=== PATIENT | female | born 1940 | race Caucasian/White ===

== ENCOUNTER 2016-05-22 10:12 | Inpatient (IN) ==
--- NOTE | 2016-05-22 11:04 | Emergency Department Note ---
Disposition Clinical Impression: Non-STEMI (non-ST elevated myocardial infarction) Disposition: Admitted As Inpatient Condition: Good Chest Pain HPI - General Chief Complaint: ED Chest Pain Stated Complaint: reflux esophagitis, JONA Time Seen by Provider: 05/22/16 10:50 Source: patient Mode of arrival: private vehicle Limitations: no limitations Vital Signs Reviewed: Yes Nursing Notes Reviewed: Yes - History of Present Illness HPI Narrative: 75-year-old female presents to the ER with a chief complaint of chest pain. Patient reports that she was seen last by her primary care provider for these symptoms and was started on Prilosec for heartburn. She reports that she is having multiple episodes of chest pain at home. It starts over her epigastric area and radiates up into her chest up into her neck and at times in her left arm. She reports that it happens at rest. There are no exacerbating factors. She reports that this happened a few years ago and she had a syncopal episode. Patient reports she had a stress test and Holter monitor which were okay. No recurrence of symptoms until now. She reports the Prilosec was not helping with her symptoms. She reports some shortness of breath whenever she has these episodes. She does have a history of anxiety and has been taking her Ativan as prescribed. No recent stressors that she can account for. No other complaints. Pt complaint: chest pain Onset (ago): day(s) Duration: intermittent Onset: during rest Pain Location: substernal Severity: moderate Severity scale (1-10): 6 Quality: heaviness Pain Radiation: LUE, neck, jaw/teeth Improves with: nothing Worsens with: nothing Associated symptoms: Reports: dyspnea. Denies: nausea, vomiting, diaphoresis Treatments prior to arrival chest pain: none - Related Data On Oral Contraceptives: No Home Medications Medication Instructions Recorded Confirmed LORazepam [Ativan] 0.5 mg PO TID PRN 05/22/16 05/22/16 Allergies Allergy/AdvReac Type Severity Reaction Status Date / Time Hydromorphone [From Dilaudid] Allergy See Verified 01/12/15 10:01 Comments morphine Allergy See Verified 01/12/15 10:01 Comments Penicillins Allergy See Verified 01/12/15 10:01 Comments All systems ED: reviewed and negative except as stated. Constitutional: Denies: fever Cardiovascular: Reports: chest pain Respiratory: Reports: dyspnea. Denies: cough, wheezes Gastrointestinal: Denies: abdominal pain, nausea, vomiting, diarrhea Musculoskeletal: Reports: neck pain. Denies: back pain Chest Pain PMH - Past Medical History Medical history: Reports: GERD Surgical history: Reports: appendectomy, colectomy, hysterectomy Psychiatric history: Reports: anxiety - Social History Smoking Status: Current every day smoker Alcohol use: Reports: none Drug use: Reports: none Physical Exam - General Limitations: no limitations General appearance: alert, in no apparent distress - Head Head exam: atraumatic, normocephalic - Eye Eye exam: Present: normal appearance, EOMI - ENT ENT exam: normal exam - Neck Neck exam: Present: normal inspection, full ROM - Chest Chest inspection: Present: normal inspection, symmetric chest wall rise - Respiratory Respiratory exam: Present: normal lung sounds bilaterally - Cardiovascular Cardiovascular exam: Present: regular rate, normal rhythm, normal heart sounds - Abdominal Exam Abdominal exam: Present: soft, Non-Tender. Absent: tenderness - Extremities Exam Extremities exam: Present: normal inspection, full ROM - Expanded Upper Extremity Exam Shoulder exam: Present: normal inspection, full ROM Arm exam: Present: normal inspection, full ROM Elbow exam: Present: normal inspection, full ROM Forearm/Wrist exam: Present: normal inspection, full ROM Hand exam: Present: normal inspection, full ROM Vascular exam: Normal: radial pulse - Expanded Lower Extremity Exam Hip/Pelvis exam: Present: normal inspection, full ROM Upper leg exam: Present: normal inspection, full ROM Knee exam: Present: normal inspection, full ROM Lower leg exam: Present: normal inspection, full ROM Ankle exam: Present: normal inspection, full ROM Foot/toe exam: Present: normal inspection, full ROM Neurovascular/Tendon exam: Absent: motor deficit, sensory deficit - Neurological Exam Neurological exam: Present: alert - Psychiatric Psychiatric exam: Present: normal affect, normal mood - Skin Skin exam: Present: warm, dry, intact, normal color Course Course Narrative: Patient seen and examined. Vital signs reviewed. We will get an EKG, labs including troponin. Disposition pending. - Reevaluation(s) Reevaluation #1: Discussed results of labs and imaging with the patient. Her troponin did come back at 0.2. Case was discussed with cardiology who agrees with beginning a heparin drip and admitting for serial troponins and evaluation. Patient and family agreeable with this plan after discussion. - Consultations Consultation #1: I spoke with the on-call hotel or motel receptionist Dr. Flores. Discussed patient's history and EKG labs and interventions to date. He agrees to continue the heparin drip and admitted for serial troponins and evaluation. Vital Signs Temperature 97.6 F 05/22/16 10:15 Pulse Rate 93 05/22/16 10:15 Respiratory Rate 16 05/22/16 10:15 Blood Pressure 146/76 05/22/16 10:15 O2 Sat by Pulse Oximetry 99 05/22/16 10:15 Temperature 97.6 F 05/22/16 10:15 Pulse Rate 90 05/22/16 12:24 Respiratory Rate 18 05/22/16 13:51 Blood Pressure 155/66 05/22/16 13:51 O2 Sat by Pulse Oximetry 100 05/22/16 12:24 Oxygen Delivery Oxygen Delivery Room Air Chest Pain - MDM Narrative Medical decision making narrative: 75-year-old female presents to the ER with a chief complaint of chest pain. Has been going on for 1 week and sounds like she has been treated for GERD previously. Her EKG here is sinus rhythm. Her troponin did come back at 0.22. Cardiology was consulted in the emergency department who agreed with starting a heparin drip and admitting to the hospitalist service. - Lab Data Lab results reviewed: Yes I reviewed the patient's lab results. Result diagrams: 05/22/16 11:23 05/22/16 11:23 Lab Results 05/22/16 05/22/16 05/22/16 Range/Units 11:23 11:23 11:23 WBC 6.3 (4.3-11.1) K/mcL RBC 3.77 L (3.82-4.97) M/mcL Hgb 11.4 L D (11.5-15.4) g/dL Hct 35.0 L (35.3-44.9) % MCV 92.8 (83.0-100.0) fL MCH 30.2 (28.0-33.3) pg MCHC 32.6 (31.6-35.5) g/dL RDW 12.7 (11.5-14.5) % Plt Count 210 (140-400) K/mcL MPV 10.8 (9.4-12.4) fL Immature Gran % 0.2 (0-4) % Seg Neutrophils % 56.2 % Lymphocytes % 24.5 % Monocytes % 18.3 % Eosinophils % 0.3 % Basophils % 0.5 % Neutrophils # 3.5 (1.6-8.9) K/mcL Lymphocytes # 1.5 (0.6-4.6) K/mcL Monocytes # 1.2 (0.0-1.3) K/mcL Eosinophils # 0.0 (0.0-0.6) K/mcL Basophils # 0.0 (0.0-0.2) K/mcL Platelet Estimate Normal (Normal) Immature Plt Fraction 7.6 H (1.1-6.1) % APTT (26.0-36.0) Seconds Sodium 141 (136-145) mEq/L Potassium 3.6 (3.5-4.5) mEq/L Chloride 110 H (98-109) mEq/L Carbon Dioxide 23 (19-29) mEq/L BUN 15 (7-20) mg/dL Creatinine 0.66 (0.57-1.11) mg/dL Est GFR ( Amer) > 60 (> 60) Est GFR (Non-Af Amer) > 60 (> 60) BUN/Creatinine Ratio 23 (6-26) Glucose 96 (70-99) mg/dL Calculated Osmolality 293 (280-300) Calcium 9.0 (8.6-10.8) mg/dL Troponin I 0.22 H* (0-0.03) ng/mL 05/22/16 Range/Units 11:23 WBC (4.3-11.1) K/mcL RBC (3.82-4.97) M/mcL Hgb (11.5-15.4) g/dL Hct (35.3-44.9) % MCV (83.0-100.0) fL MCH (28.0-33.3) pg MCHC (31.6-35.5) g/dL RDW (11.5-14.5) % Plt Count (140-400) K/mcL MPV (9.4-12.4) fL Immature Gran % (0-4) % Seg Neutrophils % % Lymphocytes % % Monocytes % % Eosinophils % % Basophils % % Neutrophils # (1.6-8.9) K/mcL Lymphocytes # (0.6-4.6) K/mcL Monocytes # (0.0-1.3) K/mcL Eosinophils # (0.0-0.6) K/mcL Basophils # (0.0-0.2) K/mcL Platelet Estimate (Normal) Immature Plt Fraction (1.1-6.1) % APTT 29.6 (26.0-36.0) Seconds Sodium (136-145) mEq/L Potassium (3.5-4.5) mEq/L Chloride (98-109) mEq/L Carbon Dioxide (19-29) mEq/L BUN (7-20) mg/dL Creatinine (0.57-1.11) mg/dL Est GFR ( Amer) (> 60) Est GFR (Non-Af Amer) (> 60) BUN/Creatinine Ratio (6-26) Glucose (70-99) mg/dL Calculated Osmolality (280-300) Calcium (8.6-10.8) mg/dL Troponin I (0-0.03) ng/mL - Radiology Data Radiology results reviewed: Yes I reviewed the patient's radiology results. Chest X-Ray 05/22/16 11:15 IMPRESSION: Overall stable appearing chest without acute cardiopulmonary process identified. D/ / Angelo Santana MD / Angelo Santana MD Interpreting Provider: Angelo Santana MD - EKG Data EKG attestation: Yes I reviewed and interpreted this EKG. EKG results narrative: EKG demonstrates normal sinus rhythm with rate of 96 bpm. Left axis deviation. GA interval 151 QRS duration 96 QTC 411 T wave inversions in lead 3. No ST elevations or depressions. Heart Score - Score History: Moderately Suspicious EKG: Non Specific repolarisation Disturbance Age: Greater than 65 Risk Factors: No risk factors known Troponin: Greater than 3x normal limit HEART Score Total: 6 Attestation Statement - Attestation Attestation: I examined this patient and my medical decision-making was reviewed with the Resident Physician. I agree with the documented findings, disposition and treatment plan as described except to the extent set forth below. CP concerning for ischemia, no STEMI on EKG, troponin 0.22 - dx NSTEMI. No sx of GIB or other abnormal bleeding, pt anticoagulated and admitted. Aspirin ordered. Cardiology aware, recommendations given.
[2016-05-22 11:30] LABS: Basophils % 0.5 %; Eosinophils % 0.3 %; Hemoglobin 11.4 g/dL (11.5-15.4); Immature Granulocytes % 0.2 % (0-4); Immature Platelets 7.6 % (1.1-6.1); Lymphocytes % 24.5 %; Mean Corpuscular HGB Conc 32.6 g/dL (31.6-35.5); Mean Corpuscular Hemoglobin 30.2 pg (28.0-33.3); Mean Corpuscular Volume 92.8 fL (83.0-100.0); Mean Platelet Volume 10.8 fL (9.4-12.4); Monocytes # 1.2 K/mcL (0.0-1.3); Monocytes % 18.3 %; Platelet Count 210 K/mcL (140-400); Red Blood Count 3.77 M/mcL (3.82-4.97); Red Cell Distribution Width 12.7 % (11.5-14.5); Segmented Neutrophils % 56.2 %
[2016-05-22 11:32] LABS: Lymphocytes # 1.5 K/mcL (0.6-4.6); Neutrophils # 3.5 K/mcL (1.6-8.9)
[2016-05-22 11:41] LABS: BUN/Creatinine Ratio 23 (6-26); Blood Urea Nitrogen 15 mg/dL (7-20); Carbon Dioxide 23 mEq/L (19-29); Chloride 110 mEq/L (98-109); Glucose 96 mg/dL (70-99); Osmolality,Calculated 293 (280-300); Potassium 3.6 mEq/L (3.5-4.5); Sodium 141 mEq/L (136-145); eGFR For African Americans > 60 (> 60); eGFR For Non-African Americans > 60 (> 60)
[2016-05-22 11:57] LABS: Platelet Estimate Normal (Normal)
[2016-05-22] MEDS ORDERED: *HR* Heparin 5,000 UNIT/ML VIAL IVP ONE (12:39)
[2016-05-22] MEDS ORDERED: *HR* Heparin 5,000 UNIT/ML VIAL IVP PRN ×2 (12:39)
[2016-05-22] MEDS ORDERED: Heparin 25,000 UNIT/500 ML D5W 25,000 UNIT/500 ML MLS IVC SCH (12:45)
[2016-05-22] MEDS ORDERED: Aspirin 81 MG TAB.CHEW PO STA (12:51)
[2016-05-22] MEDS ORDERED: *HR* LORazepam 0.5 MG TABLET PO ONE (13:36)
[2016-05-22] MEDS ORDERED: *HR* Morphine 2 MG/ML SYRINGE IVP PRN (14:13)
[2016-05-22] MEDS ORDERED: Naloxone 0.4 MG/ML INJ IVP PRN (14:13)
--- NOTE | 2016-05-22 14:38 | Internal Med History&Physical ---
<Marilia Marley M - Last Filed: 05/22/16 15:25> Date of Encounter: 05/22/16 Time of Encounter: 14:34 Assessment and Plan (1) Non-STEMI (non-ST elevated myocardial infarction) Current visit: Yes Status: Acute Patient with intermittent chest tightness and heaviness radiating up to her neck. EKG showed NSR without ST elevations or depressions. Troponin elevated to 0.22. Cardiology consulted Low-dose heparin drip check PT/INR/PTT Q6hrs and adjust heparin dose per protocol continuous manager cardiac cath serial troponins echocardiogram in the morning NPO after midnight for probably cardiac cath tomorrow. (2) Anxiety Current visit: Yes Status: Acute Continue home dose of ativan. (3) Smoker Current visit: Yes Status: Acute Patient reports she smokes 4-5 cigarettes per day. Discussed smoking cessation , and the consequences of smoking. Patient considering quitting. Offered nicotine patch and patient refused. (4) DVT prophylaxis Current visit: Yes Status: Acute Ambulate with assistance anti-embolic stockings Patient on heparin drip for ACS, additional pharmacologic prophylaxis is not indicated. Internal Medicine - H&P: HPI Chief complaint: chest pain Admitted From: Emergency Dept Plans for Post Hospital Care: Home History of present illness: Ms. Mccullough is a 75 year old female with anxiety, presented to the emergency department today with complaints of chest tightness and shortness of breath. She reports that over the last week she has experienced chest tightness and heaviness that radiated up from her epigastric area through her mid chest and up to her neck accompanied by shortness of breath. She reports these episodes come and go and last approximately 3 minutes. Some episodes include palpitations, and she had a few episodes that included nausea. She did have 2 or 3 episodes that also had left arm pain. She reports the chest tightness and heaviness goes away on its own without intervention. She went to her PCPs office last week and was started on Prilosec for suspected GERD, but she reports that her symptoms worsened since starting the Prilosec. Also reports a tremor that is also worsened since starting the Prilosec. The tremor is constant. She reports occasional headaches and lightheadedness. She denies any cough, fevers, chills, vomiting, abdominal pain, diarrhea. Evaluation in the emergency department including EKG which showed normal sinus rhythm with no ST elevations or depressions. Chest x-ray which was stable without acute cardiopulmonary process. Her troponin was elevated to 0.22. Vitals were stable with heart rate in the 90s, blood pressure 140s to 150s over 80s. Cardiology was consulted and she was started on a heparin drip. On exam, patient is alert and oriented, in no acute distress. Lungs are clear bilaterally to auscultation, heart has regular rate and rhythm. Past Med Surg Social Fam HX - Past Medical History Medical history: GERD Psychiatric history: anxiety - Past Surgical History Surgical History: appendectomy, hysterectomy - Social History Smoking Status: Current every day smoker (4-5 cigs/day x 37 years) Smokeless Tobacco Status: No Alcohol use: none Drug use: none - Family History Mother Living Status: Age at : 89 Cause of : CVA Hx Family Cancer: Yes Father Living Status: Age at : 47 Cause of : [place] Hx Family Cardiac Disorders: Yes Brother Living Status: Age at : 70 Cause of : [place] Hx Family Cardiac Disorders: Yes Internal Medicine - H&P: Meds LORazepam [Ativan] 0.5 mg PO TID PRN 05/22/16 [History] Allergies Hydromorphone [From Dilaudid] Allergy (Verified 01/12/15 10:01) See Comments morphine Allergy (Verified 01/12/15 10:01) See Comments Penicillins Allergy (Verified 01/12/15 10:01) See Comments All Systems PM: A 10-system review of systems was performed and is negative for pertinent findings except as documented above in the HPI. - Constitutional Constitutional: anorexia, no chills, no fever(s), no night sweats - EENT Eyes: no change in vision, no discharge, no pain, no photophobia Ears: no ear discharge, no ear pain, no tinnitus Nose, mouth and throat: no dysphagia, no nasal discharge, no neck pain, no sore throat - Cardiovascular Cardiovascular ROS IM: chest pain, dyspnea, lightheadedness, palpitations, no diaphoresis, no syncope - Respiratory Respiratory: dyspnea, no cough, no wheezing, no excessive phlegm production - Gastrointestinal Gastrointestinal: nausea, no abdominal pain, no diarrhea, no hematemesis, no hematochezia, no melena, no vomiting - Genitourinary Genitourinary: no change in urinary stream, no dysuria, no flank pain, no hematuria - Musculoskeletal Musculoskeletal ROS IM: no numbness, no tingling - Integumentary Integumentary IM: no rash, no unusual bruising - Neurological Neurological ROS: tremor(s), no confusion, no convulsions, no focal weakness, no numbness, no tingling - Hematologic/Lymphatic Hematologic/Lymphatic: no easy bruising - Constitutional Vitals: Temp Pulse Resp BP Pulse Ox 97.6 F 90 18 155/66 100 05/22/16 10:15 05/22/16 12:24 05/22/16 13:51 05/22/16 13:51 05/22/16 12:24 General appearance: Present: A&O X 3, pleasant, no acute distress - Head Head exam: Present: atraumatic, normocephalic - Eye Eye exam: Present: PERRL, conjuntiva pink, sclera anicteric Pupils: Present: PERRL - Neck Neck exam general surgery: Present: supple, trachea midline. Absent: lymphadenopathy - Respiratory Respiratory exam: Present: CTAB. Absent: accessory muscle use, rales, rhonchi, wheezes - Cardiovascular Cardiovascular exam: Present: RRR, +S1, +S2. Absent: diastolic murmur, gallop, rubs, systolic murmur - GI/Abdominal GI/Abdominal exam: Present: normal bowel sounds, soft, no peritoneal signs. Absent: distended, tenderness - Extremities Exam Extremities exam: Present: warm, radial pulses palpable and symetrical. Absent : calf tenderness, cyanotic, pedal edema - Neurological Exam Neurological exam: Present: CN II-XII intact, oriented X3, no focal deficits. Absent: facial droop, speech deficit - Skin Skin exam: Present: dry, intact Internal Med - H&P Results - Labs CBC & Chem 7: 05/22/16 11:23 05/22/16 11:23 Labs: All Lab Results (24 Hours) 05/22/16 05/22/16 05/22/16 Range/Units 11:23 11:23 11:23 WBC 6.3 (4.3-11.1) K/mcL RBC 3.77 L (3.82-4.97) M/mcL Hgb 11.4 L D (11.5-15.4) g/dL Hct 35.0 L (35.3-44.9) % MCV 92.8 (83.0-100.0) fL MCH 30.2 (28.0-33.3) pg MCHC 32.6 (31.6-35.5) g/dL RDW 12.7 (11.5-14.5) % Plt Count 210 (140-400) K/mcL MPV 10.8 (9.4-12.4) fL Immature Gran % 0.2 (0-4) % Seg Neutrophils % 56.2 % Lymphocytes % 24.5 % Monocytes % 18.3 % Eosinophils % 0.3 % Basophils % 0.5 % Neutrophils # 3.5 (1.6-8.9) K/mcL Lymphocytes # 1.5 (0.6-4.6) K/mcL Monocytes # 1.2 (0.0-1.3) K/mcL Eosinophils # 0.0 (0.0-0.6) K/mcL Basophils # 0.0 (0.0-0.2) K/mcL Platelet Estimate Normal (Normal) Immature Plt Fraction 7.6 H (1.1-6.1) % APTT (26.0-36.0) Seconds Sodium 141 (136-145) mEq/L Potassium 3.6 (3.5-4.5) mEq/L Chloride 110 H (98-109) mEq/L Carbon Dioxide 23 (19-29) mEq/L BUN 15 (7-20) mg/dL Creatinine 0.66 (0.57-1.11) mg/dL Est GFR ( Amer) > 60 (> 60) Est GFR (Non-Af Amer) > 60 (> 60) BUN/Creatinine Ratio 23 (6-26) Glucose 96 (70-99) mg/dL Calculated Osmolality 293 (280-300) Calcium 9.0 (8.6-10.8) mg/dL Troponin I 0.22 H* (0-0.03) ng/mL 05/22/16 Range/Units 11:23 WBC (4.3-11.1) K/mcL RBC (3.82-4.97) M/mcL Hgb (11.5-15.4) g/dL Hct (35.3-44.9) % MCV (83.0-100.0) fL MCH (28.0-33.3) pg MCHC (31.6-35.5) g/dL RDW (11.5-14.5) % Plt Count (140-400) K/mcL MPV (9.4-12.4) fL Immature Gran % (0-4) % Seg Neutrophils % % Lymphocytes % % Monocytes % % Eosinophils % % Basophils % % Neutrophils # (1.6-8.9) K/mcL Lymphocytes # (0.6-4.6) K/mcL Monocytes # (0.0-1.3) K/mcL Eosinophils # (0.0-0.6) K/mcL Basophils # (0.0-0.2) K/mcL Platelet Estimate (Normal) Immature Plt Fraction (1.1-6.1) % APTT 29.6 (26.0-36.0) Seconds Sodium (136-145) mEq/L Potassium (3.5-4.5) mEq/L Chloride (98-109) mEq/L Carbon Dioxide (19-29) mEq/L BUN (7-20) mg/dL Creatinine (0.57-1.11) mg/dL Est GFR ( Amer) (> 60) Est GFR (Non-Af Amer) (> 60) BUN/Creatinine Ratio (6-26) Glucose (70-99) mg/dL Calculated Osmolality (280-300) Calcium (8.6-10.8) mg/dL Troponin I (0-0.03) ng/mL - Diagnostic Studies Chest x-ray Additional comments: Chest X-Ray 05/22/16 11:15 IMPRESSION: Overall stable appearing chest without acute cardiopulmonary process identified. D/ / Angelo Santana MD / Angelo Santana MD Interpreting Provider: Angelo Santana MD <Olayinka Jaramillo T - Last Filed: 05/22/16 17:33> Date of Encounter: 05/22/16 Internal Medicine - H&P: HPI History of present illness: Ms. Mccullough is a 75 year old female All Systems PM: A 10-system review of systems was performed and is negative for pertinent findings except as documented above in the HPI. - Constitutional Vitals: Temp Pulse Resp BP Pulse Ox 97.8 F 97 17 141/60 94 05/22/16 15:26 05/22/16 15:26 05/22/16 15:26 05/22/16 15:26 05/22/16 15:26 Internal Med - H&P Results - Labs CBC & Chem 7: 05/22/16 11:23 05/22/16 11:23 - Attending Attestation I have independently interviewed and examined this patient. I agree with the resident/practitioner's documentation, with exemptions as stated below. The plan of care has been discussed with the team, patient and family members. 73 Y/O F with History of tobacco abuse, GERD, and anxiety presenting complaints significant for typical cardiac chest pain. Physical examination is unremarkable; vital signs stable, chest pain is not reproducible. Chest is clear, HS S1, S2 only, abdomen is benign, no pedal edema Labs and imaging reviewed chest x-ray was unremarkable as elevated troponins at 0.22, EKG with t-wave inversion in v3, incomplete right bundle branch block. CBC with mild normocytic anemia Assessment and plan NSTEMI, Continue ACS protocol, check A1C and lipid panel, obtain echocardiogram, consult cardiology, tobacco cessation counseling . Rest of details as in [employer] Yasmin documentation above, which I agree with.
[2016-05-22] MEDS ORDERED: Nitroglycerin 0.4 MG TAB.SUBL SL PRN (14:51)
--- NOTE | 2016-05-22 15:04 | Cardiology Consult Note ---
Date of Encounter: 05/22/16 Time of Encounter: 15:01 Assessment and Plan (1) Non-STEMI (non-ST elevated myocardial infarction) Current Visit: Yes Status: Acute patient came in with substernal chest pressure/tightness that radiates to her neck and jawline bilaterally. She states that it occurs both with activity and at rest, and relieved by rest. EKG showed some t wave inversions, which are also noted on previous EKG. SUDHIR score: 4 Troponin .22 CXR showed no acute process. patient had echocardiogram done in 06/20/2011 for syncope. It showed normal LV function, mild RA and LA enlargement, mildly calcified aortic valve. All segments of LV showed normal motion. she had stress test in 2010 that was negative. Plan: NPO after midnight for possible LHC tomorrow. Discussed risks, benefits of LHC with patient. EV echo pending Continue to cycle troponin will check liver function tomorrow, if normal, will start statin tomorrow. ASA 81 mg dailly, Metoprolol 25mg BID (2) Smoker Current Visit: Yes Status: Acute patient states that she smokes about 3 cigarettes per day for the past 37 years. patient counseled extensively on the benefits of smoking cessation, and its associated risk with heart disease. Discussion w patient/family: The assessment and plan as outlined above was discussed with the patient and/or family members who expressed understanding and agreement. All questions were answered. Thank you for involving us in the care of your patient. Please call with any questions. History of Present Illness Consult date: 05/22/16 Requesting physician: Marilia Marley Consult reason: NSTEMI Chief complaint: chest pressure History of present illness: Ms. Mccullough is a 75 year old female with no significant cardiac history. She has a past medical history of anxiety, allergic rhinitis, osteopenia, GERD. She states the only medications she takes at home is Lorazepam for anxiety and prilosec. Patient states she has been having a chest pressure/tightness that started about 1.5 weeks ago. Because of this, she went to see her PCP, who stated that it was probably due to GERD and put her on prilosec daily. She states that she had been taking the prilosec regularly, but it was not helping with her symptoms. Her chest pressure starts in the middle of her chest and radiates up he neck to her chin and jaw lines bilaterally. Her chest pressure does not change with laying down or sitting up. She states however that it is associated with activity, but sometimes occurs at rest as well. She states that her chest tightness/pressure has woken her up from sleep a total of 3 times since her symptoms started 1.5 weeks ago. When these episodes happen, she has mild shortness of breath and is diaphoretic. Upon examination, she was chest pain free. she denies having nausea, vomiting, diarrhea, fever, chills. Past Med Surg Social Fam HX - Past Medical History Medical history: GERD Psychiatric history: anxiety - Past Surgical History Surgical History: appendectomy, hysterectomy - Social History Smoking Status: Current every day smoker (4-5 cigs/day x 37 years) Packs per day: <1 Smokeless Tobacco Status: No Alcohol use: none Drug use: none - Family History Father Family Member Ethnicity: Non- Living Status: Hx Family Cardiac Disorders: Yes Mother Living Status: Age at : 89 Cause of : CVA Hx Family Cancer: Yes Brother Living Status: Age at : 70 Cause of : PR Hx Family Cardiac Disorders: Yes Medications and Allergies LORazepam [Ativan] 0.5 mg PO TID PRN 05/22/16 [History] Allergies Hydromorphone [From Dilaudid] Allergy (Verified 01/12/15 10:01) See Comments morphine Allergy (Verified 01/12/15 10:01) See Comments Penicillins Allergy (Verified 01/12/15 10:01) See Comments All Systems Review: A 10-system review of systems was performed and is negative for pertinent findings except as documented above in the HPI. - Constitutional Constitutional: no anorexia, no chills, no headache(s), no weight loss - Cardiovascular Cardiovascular: chest pain at rest, chest pain with exertion, radiating jaw, neck or arm pain, no syncope - Gastrointestinal Gastrointestinal: no abdominal pain - Musculoskeletal Musculoskeletal: no back pain - Neurological Neurological: no abnormal speech, no syncope - Psychiatric Psychiatric: anxiety Physical Examination Vital Signs, Last 4 Hours Resp BP 05/22/16 13:51 18 155/66 General: Conversant, No Apparent Distress HEENT: Atraumatic, Normocephaly Neck: No JVD Cardiac: Reg Rate and Rhythm, Normal S1 and S2 Lungs: Normal Breath Sounds, No Wheeze, Rales, Rhonchi Neuro: Alert and responsive, No focal deficits noted Abdomen: Soft, Non-Tender Skin: No rashes noted on visualized skin Musculoskeletal: No Chest Wall Tenderness Extremities: No Clubbing, No Cyanosis, No Edema Results 05/22/16 11:23 05/22/16 11:23 Consult Discharge Plan - Plan Referrals: Logan Sommer Jr, MD [Primary Care Provider] -
[2016-05-22] MEDS ORDERED: 0.9 % Sodium Chloride 1,000 ML IVC SCH (16:15)
[2016-05-22] MEDS: *HR* LORazepam 0.5 MG TABLET PO PRN ×2 (17:48→22:31)
[2016-05-22 21:14] LABS: INR 1.3; Prothrombin Time 14.1 Seconds (9.4-12.1)
[2016-05-22 21:17] LABS: Activated Partial Thrombo Time 75.6 Seconds (26.0-36.0)
[2016-05-22 21:22] LABS: Chol/HDL Ratio 3.7 (0-4.9)
[2016-05-23 04:07] LABS: Basophils % 0.4 %; Eosinophils # 0.1 K/mcL (0.0-0.6); Eosinophils % 2.5 %; Hematocrit 34.2 % (35.3-44.9); Hemoglobin 11.2 g/dL (11.5-15.4); Immature Granulocytes % 0.2 % (0-4); Mean Corpuscular HGB Conc 32.7 g/dL (31.6-35.5); Mean Corpuscular Hemoglobin 30.3 pg (28.0-33.3); Mean Corpuscular Volume 92.4 fL (83.0-100.0); Mean Platelet Volume 11.8 fL (9.4-12.4); Monocytes # 0.8 K/mcL (0.0-1.3); Monocytes % 14.8 %; Neutrophils # 2.6 K/mcL (1.6-8.9); Platelet Count 216 K/mcL (140-400); Red Cell Distribution Width 12.6 % (11.5-14.5); Segmented Neutrophils % 46.1 %
[2016-05-23 04:12] LABS: INR 1.2; Prothrombin Time 13.5 Seconds (9.4-12.1)
[2016-05-23 04:14] LABS: Activated Partial Thrombo Time 64.7 Seconds (26.0-36.0)
[2016-05-23 04:23] LABS: Alanine Aminotransferase 83 Units/L (0-55); Albumin 2.7 g/dL (3.5-5.0); Albumin/Globulin Ratio 0.8 (1.1-2.2); Alkaline Phosphatase 77 Units/L (38-126); Aspartate Amino Transferase 52 Units/L (5-34); BUN/Creatinine Ratio 20 (6-26); Bilirubin,Total 0.8 mg/dL (0.2-1.2); Blood Urea Nitrogen 13 mg/dL (7-20); Calcium 9.1 mg/dL (8.6-10.8); Carbon Dioxide 22 mEq/L (19-29); Chloride 110 mEq/L (98-109); Globulin 3.4 g/dL (2.4-3.5); Glucose 105 mg/dL (70-99); Osmolality,Calculated 296 (280-300); Potassium 3.5 mEq/L (3.5-4.5); Sodium 143 mEq/L (136-145); Total Protein 6.1 g/dL (6.0-8.3); eGFR For African Americans > 60 (> 60); eGFR For Non-African Americans > 60 (> 60)
--- NOTE | 2016-05-23 08:17 | Internal Med Progress Note ---
Date of Encounter: 05/23/16 Time of Encounter: 08:16 - Assessment and plan (1) Non-STEMI (non-ST elevated myocardial infarction) Status: Acute Assessment and plan: Patient presented with atypical chest pain along with troponin elevation and has never had cardiac workup. Cardiology has been consulted and left heart catheterization is planned for today. We will follow up echocardiogram. Patient has been started on IV heparin drip, continue aspirin, beta rosa and statin. Serial troponins are currently noted to be trending down. (2) Anxiety Status: Chronic Assessment and plan: Will continue home dose of benzodiazepines. (3) Smoker Status: Chronic Assessment and plan: Counseled regarding smoking cessation. Currently does not need nicotine transdermal patch. - Subjective Interval history: Feels better. Had an episode of chest pressure and tightness for 2 minutes this morning, but no dyspnea, palpitations, orthopnea; had Echocardiogram done, awaiting possible LHC; - Constitutional Vitals: Temp Pulse Resp BP Pulse Ox 98.4 F 96 18 131/70 92 05/23/16 07:35 05/23/16 07:35 05/23/16 07:35 05/23/16 07:35 05/23/16 07:35 General appearance: Present: A&O X 3, answers questions appropriately - Respiratory Respiratory exam: Present: CTAB. Absent: accessory muscle use, rales, rhonchi, wheezes - Cardiovascular Cardiovascular exam: Present: RRR, +S1, +S2. Absent: diastolic murmur, gallop, rubs, systolic murmur - GI/Abdominal GI/Abdominal exam: Present: normal bowel sounds, soft, no peritoneal signs. Absent: distended, tenderness - Extremities Exam Extremities exam: Present: pedal edema (trace), warm, radial pulses palpable and symetrical. Absent: calf tenderness, cyanotic - Neurological Exam Neurological exam: Present: CN II-XII intact, oriented X3, no focal deficits. Absent: pronater drift, facial droop, speech deficit Internal Medicine: Result - Labs CBC & Chem 7: 05/24/16 09:10 05/24/16 09:10 Labs: Short CBC 05/23/16 Range/Units 03:24 WBC 5.7 (4.3-11.1) K/mcL Hgb 11.2 L (11.5-15.4) g/dL Hct 34.2 L (35.3-44.9) % Plt Count 216 (140-400) K/mcL Neutrophils # 2.6 (1.6-8.9) K/mcL BMP 05/23/16 03:24 Sodium 143 Potassium 3.5 Chloride 110 H Carbon Dioxide 22 BUN 13 Creatinine 0.65 Glucose 105 H Calcium 9.1 Cardiac Enzymes 05/22/16 05/23/16 Range/Units 21:00 03:24 Troponin I 0.19 H* 0.17 H* (0-0.03) ng/mL Liver Function 05/23/16 Range/Units 03:24 Total Bilirubin 0.8 (0.2-1.2) mg/dL AST 52 H (5-34) Units/L ALT 83 H (0-55) Units/L Alkaline Phosphatase 77 (38-126) Units/L Albumin 2.7 L (3.5-5.0) g/dL - ABG Interpretation ABG results: PT/INR, D-dimer PT 13.5 Seconds (9.4-12.1) H 05/23/16 03:24 - VTE Documentation of Mechanical Device: Graduated compression elastic hosiery Consult Discharge Plan - Plan Instructions: Myocardial Infarction (DC), Chronic Hypertension (DC), Anxiety ( DC) Additional Instructions: F/up with [facility] in 1-2 weeks No [address] x 1 week. No heavy lifting over 5lbs with right arm for one week. Instructed to keep area dry and clean. Remove dressing after 24 hours. Referrals: Logan Sommer Jr, MD [Primary Care Provider] - (elizabeth request sent on 05/23/16) Prescriptions: Aspirin Enteric Coated [Aspirin EC] 81 mg PO DAILY #30 tablet. Atorvastatin [Lipitor] 40 mg PO HS #30 tablet Metoprolol [Lopressor] 50 mg PO BID #60 tablet Ticagrelor [Brilinta] 90 mg PO BID #60 tablet
[2016-05-23] MEDS ORDERED: 0.9 % Sodium Chloride 1,000 ML ONE ×3 (09:28→19:09)
--- NOTE | 2016-05-23 10:42 | ECHO - Doppler Report ---
Echocardiogram Name: Tory Mccullough Date of Study: 05/23/2016 Date: 1940 Ht: 61.0 in Medical Record#: [id number] Age: 75 Wt: 152.0 lb Gender: Female BSA: 1.68 Order #: [id number] Location: [facility] Room #: 2A11 Reading Physician: Carissa Ho DO Crew Leader/Control Room Operator: Delmer Smith RN Ordering Physician: Marilia Marley CNP Primary Physician: Logan Sommer MD Indications: NSTEMI Impressions: LVEF 65%. Normal LV wall motion. Normal left ventricular size and systolic function. There is evidence of moderate diastolic dysfunction of the left ventricle. Normal right ventricular size and function. Mild mitral regurgitation. Mild-moderate tricuspid regurgitation. Moderate pulmonary hypertension. Left Ventricular Wall Motion: Rest Echo Findings All wall segments showed normal motion. Findings: Study Quality * Technically adequate exam. ECG Findings * Normal sinus rhythm. Left Ventricle * LVEF 65%. * Normal LV chamber size, wall thickness and function. * Moderate left ventricular diastolic dysfunction. Mitral Valve * No mitral stenosis. * Mild mitral annular calcification * Mild mitral regurgitation. * Mildly calcified mitral valve leaflets. Tricuspid Valve * Tricuspid valve not well visualized. * Mild-moderate tricuspid regurgitation. * Estimated RA pressure is 8 mmHg. * Estimated RVSP is 56 mmHg. * Moderate pulmonary hypertension. Pulmonic Valve * Pulmonic valve is not well visualized. * No pulmonic stenosis. * No pulmonic regurgitation. Pulmonary Artery * Pulmonary artery not well visualized. Aortic Valve * Trileaflet aortic valve. * Mildly calcified aortic valve leaflets. * No aortic stenosis. Right Ventricle * Normal right ventricular structure and function. Left Atrium * Mildly dilated left atrium. Right Atrium * Severely dilated right atrium. Interatrial Septum * No evidence of PFO by color Doppler. IVC * The IVC is not dilated. * < 50% respiratory change. Pericardium * There is no pericardial effusion present. Aorta * Normally sized aortic root. History Years 30 Packs 0.5 Family History of CAD 06/20/2011 a Previous Echo was performed. Measurements: BP: 160/ 67 2D Normal Values RVIDd: 2.80 cm <2.7 cm IVSd: 1.00 cm 0.6 - 1.0 cm LVIDd: 4.00 cm 3.7 - 5.6 cm LVPWd: 1.00 cm 0.6 - 1.1 cm LVIDs: 2.70 cm 1.5 - 3.6 cm LA: 3.70 cm 2.0 - 4.0cm %FS: 32.50 cm >25 % LA volume: 47 Mitral Valve Peak E:1.11 m/sec Peak A:1.00 m/sec E/A Ratio:1.1 Peak E' Lat [place]:9.46 cm/s Peak E' Med [place]:7.6 cm/s E/E' Lat Ratio:11.7 E/E' Med Ratio:14.6 Tricuspid Valve TV Regurg Peak Grad: 48.00mmHg TV Regurg Peak Jose Francisco: 3.45m/sec Updated by Carissa Ho on 05/23/2016 10:34:01 AM electronically signed on 05/23/2016 10:36:26 AM with status of Final Wall Motion Alvares: 1=Normal, 2=Hypokinesis, 3=Akinesis, 4=Dyskinesis, 5=Aneurysmal, 6=Hyperkinetic, X=Not Visualized (Blank)=Missing
[2016-05-23] MEDS ORDERED: Nitroglycerin 1,000 MCG/10 ML VIAL IV ONE ×2 (14:08→15:58)
[2016-05-23] MEDS ORDERED: Heparin 1,000 UNITS/500 mL NS 500 ML ONE (14:08)
[2016-05-23] MEDS ORDERED: *HR* Heparin 10,000 UNIT/10 ML VIAL ONE (14:08)
[2016-05-23] MEDS ORDERED: Verapamil 5 MG/2 ML VIAL ONE (14:08)
[2016-05-23] MEDS ORDERED: *HR* FentaNYL (PF) 100 MCG/2 ML VIAL ONE (15:01)
[2016-05-23] MEDS ORDERED: *HR* Midazolam HCl 2 MG/2 ML VIAL ONE (15:01)
[2016-05-23] MEDS ORDERED: Tirofiban 5 MG/100ML 5 MG/100 ML BAG IV ONE (16:01)
[2016-05-23] MEDS ORDERED: *HR* Ticagrelor 90 MG TABLET ONE ×2 (16:29→17:16)
--- NOTE | 2016-05-23 16:47 | Pre-Sedation Evaluation ---
Pre-sedation evaluation - Pre-sedation checklist Date of procedure: 05/23/16 Procedure: left heart cath Recent Vitals: Last Vital Signs Temp 98.3 F 05/23/16 11:12 Pulse 89 05/23/16 11:12 Resp 18 05/23/16 11:12 BP 144/63 05/23/16 11:12 Pulse Ox 95 05/23/16 11:12 H&P (including ROS) documented in medical record: Yes Previous reaction to sedatives/anesthetics: No Dietary Status: NPO after Midnight Dentition: dentures removed ASA Classification *see protocol: CLASS II-Mild systemic disease Plan of Care: Pt appropriate candidate for procedure/moderate/conscious sedation , Risks/benefits of procedure/sedation discussed w/ patient/family
[2016-05-23] MEDS ORDERED: Abciximab 9 MG in 0.9 % Sodium Chloride 250 ML IVC SCH (17:00)
--- NOTE | 2016-05-23 17:20 | Invasive Diagnostic Lab Proc ---
Name: Tory Mccullough Date of Study: 05/23/2016 Date: 1940 Ht: 61.0in Medical Record#: [id number] Age: 75 Wt: 152.82lb Gender: Female BSA: 1.69 Order #: [id number] BMI: 28.85 Physicians Procedure Physician: Jakob Sharp MD, [facility] Referring MD: Referring MD: Staff Name Position Time In Martita Perez RN Nurse 03:15 PM Linh Hummel RT (R) Monitor 03:15 PM Bianka Pruett RN Medtronics Technician 03:15 PM Indications Indication Non-Stemi Procedures Performed Procedure L HRT ARTERY/VENTRICLE ANGIO PRQ CARD IVONE STENT W/ANGIO 1 VSL PRQ CARD IVONE STENT W/ANGIO 1 VSL Pre-Procedure Checklist Informed consent is complete signed and on chart. H\\T\\P is on chart. ID band is on and ID verified with patient. Patient NPO for procedure The procedure was described for the patient and questions were answered. ECG is on chart. Plan of Care Patient will tolerate the procedure without complications. Adequate level of comfort will be maintained. Hemodynamics will remain stable Patient will recover from procedure without complications. Respiratory function will be maintained. Cardiac rhythm will remain stable. Patient temperature will be maintained. Patient and/or family have verbalized understanding of the procedure. Patient Education Chief Complaint/Reason for Test: Cardiac Cath Developmental Category: Geriatric (65+ years) Developmentally Appropriate for Age: Yes Learning Barriers: None Education Needs: Procedure Education Method: Verbal Information Taught: Cardiac Cath Educational Evaluation: Able to repeat information Intravenous Access Time IV Size Location DC'd Fluid/Drip Rate Units RN 02:03 PM 20g 1 02/21" Patent On Arrival Lt Antecubital Allergies Penicillin morphine Hydromorphone Penicillins Vital Signs Time BP (mmHg) HR (bpm) O2 Sat. RR (bpm) LOC 02:04 PM 131 / 70 96 92 % 18 03:17 PM / % 5 = Fully awake and oriented or at pre-proc level 03:17 PM / % 4 = Oriented but drowsy 03:32 PM / % 4 = Oriented but drowsy 03:48 PM / % 4 = Oriented but drowsy 04:03 PM / % 4 = Oriented but drowsy 04:19 PM / % 5 = Fully awake and oriented or at pre-proc level 03:17 PM 153 / 83 106 99 % 12 03:23 PM 152 / 74 98 100 % 03:28 PM 152 / 74 100 100 % 8 03:33 PM 134 / 64 97 97 % 18 03:38 PM 137 / 62 97 98 % 13 03:43 PM 131 / 67 96 100 % 03:48 PM 152 / 72 95 97 % 11 03:53 PM 140 / 77 217 100 % 16 03:58 PM 133 / 65 92 98 % 10 04:03 PM 140 / 61 96 95 % 05:03 PM 110 / 53 % 04:08 PM 142 / 63 96 98 % 15 04:13 PM 142 / 64 96 92 % 28 04:18 PM 146 / 65 98 81 % 04:23 PM 134 / 63 99 98 % 20 04:28 PM 151 / 61 91 96 % 15 04:33 PM 148 / 66 93 95 % 12 04:38 PM 173 / 76 98 % 04:43 PM 139 / 66 95 % 44 04:48 PM 144 / 63 96 98 % 23 04:53 PM 143 / 66 % 04:58 PM 132 / 73 % 04:34 PM / % 5 = Fully awake and oriented or at pre-proc level 04:51 PM / % 5 = Fully awake and oriented or at pre-proc level Procedural Medications Time Medication Dose Units Method Given By 03:17 PM Oxygen 2 L/min nasal cannula Bianka Pruett RN 03:18 PM Versed 1 mg Intravenous Bianka Pruett RN 03:19 PM Fentanyl 25 mcg Intravenous Bianka Pruett RN 03:27 PM Versed 1 mg Intravenous Linh Hummel RT (R) 03:28 PM Lidocaine 2% 0.5 ml Subcutaneous Jakob Sharp MD, FACC 03:28 PM Heparin 2000 units Nitroglycerin 200 mcg Verapamil 2.5 mg Intraarterial Jakob Sharp MD, FACC 03:42 PM Heparin 2500 units Intravenous Bianka Pruett RN 03:54 PM Nitroglycerin 200 mcg Intracoronary Jakob Sharp MD 04:03 PM Aggrastat Bolus: 33 ml Intravenous Bianka Pruett RN 04:04 PM Aggrastat 5mg/100ml 12 ml Intravenous Bianka Pruett RN 04:22 PM Nitroglycerin 200 mcg Intracoronary Jakob Sharp MD 04:25 PM Nitroglycerin 100 mcg Intracoronary Jakob Sharp MD 04:27 PM Nitroglycerin 100 mcg Intracoronary Jakob Sharp MD 04:39 PM Fentanyl 25 mcg Intravenous Flynn, Bianka RN ASA Classification: CLASS II- Mild systemic disease (i.e. well-controlled diabetes, hypertension, asthma, cigarette smoking) Brennon Score Preprocedure Postprocedure Activity 2- Moves 4 extremities sustained head lift Activity 2- Moves 4 extremities sustained head lift Circulation 2- SBP +/= 20 points of pre-anesthetic level Circulation 2- SBP +/= 20 points of pre-anesthetic level Consciousness 2- Awake and alert oriented x 3 Consciousness 2- Awake and alert oriented x 3 O2 Saturation 2- Able to maintain O2 satruation of 92% on room air O2 Saturation 2- Able to maintain O2 satruation of 92% on room air Respiratory 2- Able to deep breathe and cough well Respiratory 2- Able to deep breathe and cough well Total Score 10 Total Score 10 Contrast Agent: Isovue Diagnostic Contrast: 173 ml Total Contrast: 173 ml Fluoro Dose: 678 mGy Activated Clotting Time Time Seconds to Clot 03:42 PM 174 Procedure Log Time Note Enter By 03:15 PM Pt arrived to blood and plasma laboratory assistant 2 at 15:15 dsp 03:15 PM Martita Perez RN Position: Nurse Time in: 15:15 dspell 03:15 PM Linh Hummel RT (R) Position: Monitor Time in: 15:15 dsp 03:15 PM Bianka Pruett RN Position: Medtronics Technician Time in: 15:15 03:15 PM Patient charges- Angio tray pack, Navilyst 3mm J, Pulse Oximetry and ACIST tubing and transducer dspell 03:15 PM IV Supplies used: J loop Angio Cath. dspell 03:16 PM Case Delayed No ell 03:16 PM Physician arrived 15:16 dsp 03:16 PM ASA Class CLASS II- Mild systemic disease (i.e. well-controlled diabetes, hypertension, asthma, cigarette smoking) dspell 03:16 PM Meet and greet completed 03:16 PM Sign in performed according to hospital policy. dspell 03:16 PM Procedure start 15:16 dspell 03:16 PM CathStat 03:16 PM Case Start 03:17 PM Vitals capture started with the following parameters, Patient=Adult, Interval=5 min, Initial Hmaxkyef=081 mmHg, Deflation Rate=5 mmHg, Cuff placed on Left Arm 03:17 PM Time: 15:17 Oxygen on at 2 L/min per nasal cannula by Bianka Pruett RN :17 PM Time: 15:17 Patient comfortable and pain free: Yes michael:17 PM Time: 15:17LOC: 5 = Fully awake and oriented or at pre-proc level :17 PM YC=785 bpm, JJNH=287/83 mmhg, SpO2=99.0 %, Resp=12 B/min, Comment=NSR 03:18 PM Clinical Presentation: Non-STEMI : PM Time: 15:18 Versed 1 mg Intravenous Given by Bianka Pruett RN : PM Time: 15:19 Fentanyl 25 mcg Intravenous Given by Bianka Pruett RN 03:20 PM Hair removed from procedure site in holding area using clippers. Right groin, right wrist prepped with Chloraprep by Martita Perez RN, safety strap applied then patient was draped. Skin intact. [facility]:23 PM HR=98 bpm, HVYC=205/74 mmhg, YbT1=071.0 %, Comment=NSR 03: PM Time: 15:27 Versed 1 mg Intravenous Given by Linh Hummel RT (R) : PM UF=432 bpm, ZJLV=130/74 mmhg, MlS8=146.0 %, Resp=8 B/min, Comment=NSR 03:28 PM Time out performed according to hospital policy [facility] PM Time: 15:28 .5 ml Lidocaine 2% to right radial Subcutaneous Given by Jakob Sharp MD, [facility] :28 PM Time: 15:28 Patient given 2000 units Heparin, 200 mcg Nitroglycerin, and 2.5 mg Verapamil Intraarterial by Jakob Sharp MD, [facility] 03:29 PM Access obtained by percutaneous puncture. 5Fr 10cm Terumo Maxwell sheath placed in right Radial artery. [id number] [facility] 03:30 PM 5Fr FR 4 catheter inserted over the wire [facility] michael 03:31 PM 0.035 260cm Navilyst 3mmJ wire [id number] [facility] 03:32 PM 0.035 145cm VSI Robi-Torque wire [id number] [facility]:32 PM Time: 15:17 Patient comfortable and pain free: Yes dspellman 03:32 PM Time: 15:17LOC: 4 = Oriented but drowsy dspellman 03:33 PM HR=97 bpm, MZKK=725/64 mmhg, SpO2=97.0 %, Resp=18 B/min, Comment=NSR 03:33 PM Recorded Pressure: Ao, HR=98, Condition=Condition 1 (Aorta) Ao 157/72/107 03:33 PM Recorded Pressure: Ao, HR=97, Condition=Condition 1 (Aorta) Ao 148/72/107 03:33 PM RCA angiography performed in multiple views. dspellman 03:34 PM Lesion found in Proximal RCA. Pre Stenosis: 99 Pre SUDHIR Flow: dspellman 03:34 PM Coronary Dominance: right dspellman 03:34 PM Catheter removed dspellman 03:34 PM 5Fr FL 4 catheter inserted over the wire DN dspellman 03:34 PM LCA angiography performed in multiple views. dspellman 03:35 PM Recorded Pressure: Ao, HR=98, Condition=Condition 1 (Aorta) Ao 153/77/109 03:37 PM Lesion found in Mid Circumflex. Pre Stenosis: 99 Pre SUDHIR Flow: dspellman 03:37 PM Recorded Pressure: Ao, HR=93, Condition=Condition 1 (Aorta) Ao 123/71/95 03:37 PM Lesion found in Proximal LAD. Pre Stenosis: 50 Pre SUDHIR Flow: dspellman 03:38 PM Lesion found in Mid LAD. Pre Stenosis: 60 Pre SUDHIR Flow: dspellman 03:38 PM HR=97 bpm, ZEUN=542/62 mmhg, SpO2=98.0 %, Resp=13 B/min, Comment=NSR 03:38 PM Catheter removed dspellman 03:38 PM 5Fr Pigtail catheter inserted over the wire [facility] dspellman 03:38 PM Catheter selectively placed in left ventricle dspellman 03:38 PM Bolus angiogram of left Ventricle complete: 10 ml/sec for a total of 20 mls dspellman 03:39 PM Recorded Pressure: LV, HR=92, Condition=Condition 1 (Left Ventricle) LV 167/29/17 03:40 PM Recorded Pressure: LV, HR=96, Condition=Condition 1 (Left Ventricle) LV 161/0/14 03:40 PM Recorded Pressure: LV, Ao, HR=86, Condition=Condition 1 (Left Ventricle) LV 173/1/37, (Aorta) Ao 147/57/90 03:41 PM Catheter removed dspellman 03:41 PM Proximal Left Anterior Descending Coronary Artery with 50% stenosis. If graft is supplying this territory, 0 % stenosis. dspellman 03:41 PM Mid/Distal Left Anterior Descending Coronary Artery and diagonal branches with 60% stenosis. If graft is supplying this area, 0 % stenosis dspellman 03:41 PM Circumflex, Obtuse Marginal, Left Posterior Descending, and Left Posterolateral Coronary Arteries with 99 % stenosis. If graft is supplying this area, 0 % stenosis dspellman 03:42 PM Right Coronary, Right Posterior Descending Arteries with Right Posterolateral and Acute Marginal branches with 99 % stenosis. If graft is supplying this area, 0 % stenosis dspellman 03:42 PM Recorded Pressure: Ao, IJ=749, Condition=Condition 1 (Aorta) Ao 175/76/120 03:42 PM At 15:42 the ACT was 174 seconds. dspellman 03:43 PM Time: 15:42 Heparin 2500 units Intravenous Given by Bianka Pruett RN dspellman 03:43 PM HR=96 bpm, QOHL=311/67 mmhg, ZiL7=075.0 %, Comment=NSR 03:43 PM PCI Status Urgent dspellman 03:43 PM PCI lesion in Proximal RCA. dspellman 03:44 PM 6Fr RBR 3.5 Convey guide catheter was used to cannulate the PCI vessel unsuccessfully. reused? No dspellman 03:44 PM Inflation device was opened. dspellman 03:44 PM Guide catheter removed intact. dspellman 03:45 PM 6Fr RBL 3.5 Convey guide catheter was used to cannulate the PCI vessel successfully. reused? No dspellman 03:45 PM PCI lesion in Mid Circumflex. dspellman 03:47 PM Time: 15:32 Patient comfortable and pain free: Yes dspellman 03:48 PM Time: 15:32LOC: 4 = Oriented but drowsy dspellman 03:48 PM .014 PT Graphix 182cm guide wire across target lesion- successful. reused? No dspellman 03:48 PM HR=95 bpm, KAHU=396/72 mmhg, SpO2=97.0 %, Resp=11 B/min, Comment=NSR 03:49 PM 2.0 mm x 8 mm Emerge Monorail balloon across target lesion- successful. reused? No dspellman 03:50 PM Balloon inflated @ 14 sen for 12 seconds dspellman 03:50 PM Balloon inflated @ 14 sen for 15 seconds dspellman 03:50 PM Balloon catheter removed intact. dspellman 03:51 PM 3.5mm x 20mm Synergy drug-eluting stent across target lesion- successful Lot #[id number] dspellman 03:53 PM Stent deployed @ 16 sen for 12 seconds dspellman 03:53 PM VK=285 bpm, YJJG=632/77 mmhg, IgR5=012.0 %, Resp=16 B/min, Comment=NSR 03:53 PM Stent delivery system removed intact. dspellman 03:53 PM Recorded Pressure: Ao, HR=70, Condition=Condition 1 (Aorta) Ao 137/78/106 03:54 PM Time: 15:54 Nitroglycerin 200 mcg Intracoronary Given by Jakob Sharp MD dspell 03:54 PM 3.5 mm x 8mm NC Trek Rx balloon across target lesion- successful. reused? No dspellman 03:56 PM Balloon inflated @ 18 sen for 10 seconds dspellman 03:56 PM Balloon inflated @ 18 sen for 23 seconds dspellman 03:57 PM Balloon catheter removed intact. dspellman 03:58 PM HR=92 bpm, KXFK=953/65 mmhg, SpO2=98.0 %, Resp=10 B/min, Comment=NSR 03:58 PM Recorded Pressure: Ao, HR=93, Condition=Condition 1 (Aorta) Ao 126/70/95 04:00 PM Guide wire removed intact. dspell 04:00 PM 6Fr JR 4 Runway guide catheter was used to cannulate the PCI vessel unsuccessfully. reused? No dspellman 04:02 PM Time: 15:47 Patient comfortable and pain free: Yes dspell 04:03 PM HR=96 bpm, XNCY=276/61 mmhg, SpO2=95.0 %, Comment=NSR 04:03 PM Time: 15:48LOC: 4 = Oriented but drowsy dspellshena 04:04 PM Time: 16:03 Aggrastat Bolus: 33 ml Intravenous Given by Bianka Pruett RN Valles pump dspmelanie 04:04 PM Time: 16:04 Aggrastat 5mg/100ml 12 ml Intravenous Given by Bianka Pruett RN Valles pump dspellman 04:04 PM Guide catheter removed intact. dspellman 04:05 PM 5Fr MPA Convey guide catheter was used to cannulate the PCI vessel unsuccessfully. reused? No dspellman 04:07 PM Guide catheter removed intact. dspellman 04:08 PM HR=96 bpm, DKKD=847/63 mmhg, SpO2=98.0 %, Resp=15 B/min, Comment=NSR 04:08 PM 5Fr JR 4 Convey guide catheter was used to cannulate the PCI vessel unsuccessfully. reused? No dspellman 04:10 PM Guide catheter removed intact. dspellman 04:11 PM 6Fr AR1SH Runway guide catheter was used to cannulate the PCI vessel successfully. reused? No dspellman 04:12 PM .014 PT Graphix 182cm guide wire across target lesion- successful. reused? Yes dspellman 04:12 PM Recorded Pressure: Ao, HR=97, Condition=Condition 1 (Aorta) Ao 151/69/105 04:13 PM HR=96 bpm, MFBM=766/64 mmhg, SpO2=92.0 %, Resp=28 B/min, Comment=NSR 04:13 PM Recorded Pressure: Ao, HR=96, Condition=Condition 1 (Aorta) Ao 146/68/102 04:14 PM 2.0 mm x 8 mm Emerge Monorail balloon across target lesion- successful. reused? No dspellman 04:15 PM Balloon inflated @ 14 sen for 10 seconds dspellman 04:15 PM Balloon inflated @ 14 sen for 4 seconds dspellman 04:16 PM Balloon catheter removed intact. dspellman 04:17 PM 2.75mm x 12mm Synergy drug-eluting stent across target lesion- successful Lot #[id number] dspellman 04:18 PM Time: 16:02 Patient comfortable and pain free: Yes dspellman 04:18 PM HR=98 bpm, WCOD=464/65 mmhg, SpO2=81.0 %, Comment=NSR 04:18 PM Recorded Pressure: Ao, HR=60, Condition=Condition 1 (Aorta) Ao 131/71/97 04:19 PM Time: 16:03LOC: 4 = Oriented but drowsy dspellman 04:19 PM Stent deployed @ 16 sen for 15 seconds dspellman 04:19 PM Stent delivery system removed intact. dspellman 04:20 PM 3.0 mm x 15mm NC Emerge balloon across target lesion- successful. reused? No dspellman 04:20 PM Recorded Pressure: Ao, HR=99, Condition=Condition 1 (Aorta) Ao 151/75/109 04:21 PM Balloon inflated @ 20 sen for 13 seconds dspellman 04:21 PM Recorded Pressure: Ao, HR=64, Condition=Condition 1 (Aorta) Ao 128/67/93 04:22 PM Time: 16:22 Nitroglycerin 200 mcg Intracoronary Given by Jakob Sharp MD dspellman 04:23 PM HR=99 bpm, AAAS=598/63 mmhg, SpO2=98.0 %, Resp=20 B/min, Comment=NSR 04:23 PM Balloon catheter removed intact. dspellman 04:23 PM 3.5 mm x 8mm NC Emerge balloon across target lesion- successful. reused? No dspellman 04:25 PM Balloon inflated @ 16 sen for 15 seconds dspellman 04:25 PM Balloon inflated @ 14 sen for 6 seconds dspellman 04:26 PM Time: 16:25 Nitroglycerin 100 mcg Intracoronary Given by Jakob Sharp MD dspellman 04:27 PM Balloon inflated @ 24 sen for 20 seconds dspellman 04:28 PM Time: 16:27 Nitroglycerin 100 mcg Intracoronary Given by Jakob Sharp MD dspellman 04:28 PM HR=91 bpm, LEGU=911/61 mmhg, SpO2=96.0 %, Resp=15 B/min, Comment=NSR 04:29 PM Guide wire removed intact. dspellman 04:29 PM Balloon catheter removed intact. dspellman 04:29 PM Guide catheter removed intact. dspellman 04:30 PM Procedure completed at 16:30 dspellman 04:31 PM Sign out completed: Radiation Dose 678.39 mGy Fluoro Time: 17.1 Isovue 370 - 200ml contrast ml given by Jakob Sharp MD, [facility]. Complications: NoneCardiac Rehab Consult needed: YesConfirmed administered medications: Yes dspellman 04:32 PM Isovue 370 - 200ml,1 Bottle(s) used. dspellman 04:32 PM Arterial sheath pulled, Vasc Band closure device used and was Successful S/N. dspellman 04:32 PM 17 ml air in Vasc Band. dspellman 04:32 PM Post ECG NSR dspellman 04:32 PM Post Blood Pressure 151/61 dspell 04:33 PM Time: 16:18 Patient comfortable and pain free: Yes 04:33 PM HR=93 bpm, YMTT=450/66 mmhg, SpO2=95.0 %, Resp=12 B/min, Comment=NSR 04:33 PM 16:33 Post Pulses Rt Radial 2+ dspell 04:33 PM Information taught Cardiac Cath, PCI, and Vasc Band dspell 04:33 PM Education needs Procedure, Plan of Care, and Responsibilities of Patient in Care dspell 04:34 PM Learning barriers :None :34 PM Education Methods Verbal dsp:34 PM Education evaluation Able to repeat information :34 PM Time: 16:19LOC: 5 = Fully awake and oriented or at pre-proc level dspell 04:35 PM Site status No bleeding/hematoma - Rt Wrist as reported by Sites, Marilia RT (R) at 16:34 ell 04:38 PM Family placed in consult room. 04:38 PM Complications: None ell 04:38 PM Fluoro Time: 17.1 04:38 PM Isovue 370 - 200ml contrast 173 ml given by Jakob Sharp MD, [facility]. 04:38 PM HR=98 bpm, ZHSW=578/76 mmhg, Comment=NSR 04:38 PM Radiation Dose 678.39 mGy dsp 04:39 PM Time: 16:39 Fentanyl 25 mcg Intravenous Given by Bianka Pruett RN 04:43 PM HR=95 bpm, CJTY=342/66 mmhg, Resp=44 B/min, Comment=NSR 04:48 PM HR=96 bpm, LWJN=801/63 mmhg, SpO2=98.0 %, Resp=23 B/min, Comment=NSR 04:51 PM Time: 16:34LOC: 5 = Fully awake and oriented or at pre-proc level dspell 04:51 PM Time: 16:33 Patient comfortable and pain free: Yes 04:51 PM Report given to Zandra SOTO Pt taken to 2A Room #11. 16:51 dspellman 04:51 PM Delay to floor No dspellman 04:51 PM Patient out of room: 16:51 dspellman 04:53 PM JJAP=640/66 mmhg 04:58 PM HIQX=826/73 mmhg 05:03 PM GEDA=073/53 mmhg 05:06 PM Time: 16:51 Patient comfortable and pain free: Yes ashlie 05:06 PM Time: 16:51LOC: 5 = Fully awake and oriented or at pre-proc level ashlie Complications Complication None None Hemodynamics Pressures Site Systolic/A Wave Diastolic/V Wave Mean AO 157 72 107 AO 148 72 107 AO 153 77 109 AO 123 71 95 LV 167 29 17 LV 161 0 14 LV 173 1 37 AO 147 57 90 AO 175 76 120 AO 137 78 106 AO 126 70 95 AO 151 69 105 AO 146 68 102 AO 131 71 97 AO 151 75 109 AO 128 67 93 Post Procedure Information Blood Pressure: 151/61 mmHg Rhythm: NSR Post procedural instructions were given Closure Device Time Device Success/Fail 05/23/2016 4:51:00 PM Mechanical Compression Successful Site Checks Time Location Status Staff Sheath In? Note 04:34 PM Rt Wrist No bleeding/hematoma Sites, Marilia RT (R) Pulses Time Site Pre-Procedure Post-Procedure Note 05/23/2016 2:03:00 PM Bilateral radial 2+ 05/23/2016 2:04:00 PM Bilateral DP 1+ 4:33:00 PM Rt Radial 2+ Updated by Linh Hummel RT (R) on 05/23/2016 5:09:29 PM Linh Hummel RT electronically signed on 05/23/2016 5:15:29 PM with status of Final
--- NOTE | 2016-05-23 18:00 | Electrocardiograph Report ---
[place] [facility] Test Date: 2016-05-22 Pat Name: Tory Mccullough Department: 104 Room: 2A11 Gender: F Assortment Planner: MSC : 1940 Requested By: Nabor Velásquez Order Number: [id number] Reading MD: Logan Sommer MD Measurements Intervals [place] Rate: 96 P: 70 RI: 151 QRS: -23 QRSD: 96 T: 0 QT: 358 QTc: 411 Interpretive Statements SINUS RHYTHM BORDERLINE LEFT AXIS DEVIATION INCOMPLETE RIGHT BUNDLE BRANCH BLOCK MODERATE VOLTAGE CRITERIA FOR LVH, CONSIDER NORMAL VARIANT Electronically Signed On 05-23-2016 17:59:14 EDT by Logan Sommer MD
[2016-05-23] MEDS ORDERED: Tirofiban 12.5 MG/250ML 12.5 MG/250 ML BAG IVC SCH (18:15)
[2016-05-23] MEDS: *HR* Ticagrelor 90 MG TABLET PO SCH (20:29)
[2016-05-23] MEDS: Acetaminophen 325 MG TABLET PO PRN (20:29)
[2016-05-23] MEDS: *HR* LORazepam 0.5 MG TABLET PO PRN (22:38)
[2016-05-24] MEDS ORDERED: Aspirin 81 MG TAB.CHEW PO SCH (09:00)
[2016-05-24] MEDS ORDERED: Aspirin Enteric Coated 81 MG Tablet PO SCH (09:00)
[2016-05-24] MEDS: *HR* Ticagrelor 90 MG TABLET PO SCH (09:02)
[2016-05-24] MEDS: Acetaminophen 325 MG TABLET PO PRN (09:02)
--- NOTE | 2016-05-24 09:19 | Invasive Diagnostic Lab ---
Name: Tory Mccullough Date of Study: 05/23/2016 Date: 1940 Ht: 155.0 cm /61.0 in Medical Record#: [id number] Age: 75 Wt: 69.3 kg / 152.82 lb Account/Order#: [id number] Gender: Female BSA: 1.69 Order #: [id number] Fluoro Dose: 678 mGy BMI: 28.85 Procedure Physician: Jakob Sharp MD, [facility] Referring MD: Referring MD: Procedures Performed: LEFT HEART CATH Stent w/ PTCA Single Major Vessel Stent w/ PTCA Single Major Vessel Indications: Non-Stemi Impressions: There is severe three vessel coronary artery disease. The left ventricle is normal and has normal contractility EF 60% Patient had successful PTCA/Drug-Eluting Stent placement in the proximal RCA. Patient had successful PTCA/Drug-Eluting Stent placement in the mid Circ. Recommendations: Optimal medical therapy of patient's disease. Aggressive risk factor modification. History/Risk Factors: N-Stemi Anxiety, GERD Syncope Current/Recent Smoker Procedure Access obtained in the right Radial artery by percutaneous puncture Patient had successful PTCA/Drug-Eluting Stent placement in the proximal RCA. AR1 guide Patient had successful PTCA/Drug-Eluting Stent placement in the mid Circ. Complications: None, None Contrast: Isovue 173ml Closure Device: Mechanical Compression Hemodynamics: Pressures Site Systolic/ A Wave Diastolic/ V Wave End Diastolic/ Mean HR AO 157 72 107 98 AO 148 72 107 97 AO 153 77 109 98 AO 123 71 95 93 LV 167 29 17 92 LV 161 0 14 96 LV 173 1 37 96 AO 147 57 90 73 AO 175 76 120 103 AO 137 78 106 70 AO 126 70 95 93 AO 151 69 105 97 AO 146 68 102 96 AO 131 71 97 60 AO 151 75 109 99 AO 128 67 93 64 LV Ventriculography Ejection Method: LV Gram Ejection Fraction: 60% Wall Motion: ARROYO Anterobasal Normal Anterolateral Normal Apical: Normal Inferoapical Normal Inferobasal Normal Coronary Dominance: right Lesion Findings/Interventions * Left Main Coronary Artery The LMCA is angiographically free of disease. * Left Anterior Descending There is a 50% stenosis in the Proximal LAD. There is a 60% stenosis in the Mid LAD. * Circumflex There is a 20 mm long, 99% stenosis in the Mid Circumflex. The lesion has a SUDHIR flow of 3. This lesion is further described as ectatic. An intervention was performed on the Mid Circumflex with a final stenosis of 0%. There were no lesion complications. The final SUDHIR flow was 3. There is a proximal 60% stenosis abutting OM 1. 3.5mm IVONE to 16 sen followed by 3.5 NC to 24 sen. * Right Coronary Artery There is a 15 mm long, 99% stenosis in the Proximal RCA. The lesion has a SUDHIR flow of 3. Further described as aneurysmal proximal RCA. An intervention was performed on the proximal RCA with a final stenosis of 0%. There were no lesion complications. The final SUDHIR flow was 3. No significant disease in the PDA. 2.75mm IVONE RCA postdilated with 3.5mm NC to high pressure. Interventional Device(s) Vessel Segment Type Name Diameter (mm) Length (mm) Proximal RCA balloon Emerge Monorail 2 8 Proximal RCA drug-eluting stent Synergy 2.75 12 Proximal RCA balloon NC Emerge 3 15 Proximal RCA balloon NC Emerge 3.5 8 Mid Circumflex balloon NC Trek Rx 3.5 8 Mid Circumflex balloon Emerge Monorail 2 8 Mid Circumflex drug-eluting stent Synergy 3.5 20 Updated by Jakob Sharp MD, FACC on 05/24/2016 9:09:02 AM Jakob Sharp MD, FACC electronically signed on 05/24/2016 9:13:42 AM with status of Final
--- NOTE | 2016-05-24 09:34 | Cardiology Progress Note ---
Date of Encounter: 05/24/16 Time of Encounter: 09:32 Assessment and Plan (1) Non-STEMI (non-ST elevated myocardial infarction) Current Visit: Yes Status: Acute Troponin 0.22, 0.19, 0.17. S/p PCI with IVONE/PTCA to her RCA and mLcx artery. There was 50% stenosis in the pLAD, 60% stenosis in the mLAD. 60% stenosis in the OM remaining. TTE showed EF 65%, moderate diastolic dysfunction, mild MR, mild to moderate TR. Moderate pulmonary hypertension. Kidney function is stable. Importance of DAPT with asa and brilinta for minimum of one year discussed. Free 30 day brilinta card given. Continue lipitor and beta-rosa. Ecchymosis around right wrist. No hematoma. Pulses 2/2+ bilaterally and good hand strength. No driving x 1 week. No heavy lifting over 5lbs with right arm for one week. Instructed to keep area dry and clean. Remove dressing after 24 hours. F/u with [facility] will be made. Discussion w patient/family: The assessment and plan as outlined above was discussed with the patient and/or family members who expressed understanding and agreement. All questions were answered. Thank you for involving us in the care of your patient. Please call with any questions. Subjective Principal diagnosis: NSTEMI Interval history: Pt reported increased bruising around right radial site early this morning. photo lab specialist nurses went to bedside to hold pressure. No hematoma. Moderate amount of bruising on hand and forearm. Area is soft. No active bleeding seen. She has good pulses and equal hand strength. She denies recurrent chest pain. Objective Vital Signs, Last 4 Hours Temp Pulse Resp BP Pulse Ox 05/24/16 08:06 95 05/24/16 06:45 98.0 F 99 16 163/75 95 General: Conversant, No Apparent Distress HEENT: Atraumatic, Normocephaly, Mucus Membranes Moist Neck: No JVD, Normal carotid pulses Cardiac: Reg Rate and Rhythm, Normal S1 and S2, No Murmur Lungs: Normal Breath Sounds, No Wheeze, Rales, Rhonchi Neuro: Alert and responsive, No focal deficits noted Abdomen: Soft, Non-Tender Skin: No rashes noted on visualized skin Musculoskeletal: No Chest Wall Tenderness Extremities: No Clubbing, No Cyanosis, No Edema, Normal Pulses, Other (right radial access with ecchymosis on hand and forearm. Area soft. No hematoma. ) Results 05/24/16 09:10 05/24/16 09:10 Lab Results 05/24/16 04:00 APTT 26.9 D - Imaging and Cardiology Cardiac cath: report reviewed - EKG Interpretation EKG results cardiology: personally reviewed - VTE Documentation of Mechanical Device: Graduated compression elastic hosiery Consult Discharge Plan - Plan Referrals: Logan Sommer Jr, MD [Primary Care Provider] - (elizabeth request sent on 05/23/16)
[2016-05-24 09:36] LABS: Basophils % 0.4 %; Eosinophils # 0.1 K/mcL (0.0-0.6); Hematocrit 34.5 % (35.3-44.9); Hemoglobin 11.4 g/dL (11.5-15.4); Immature Granulocytes % 0.3 % (0-4); Lymphocytes # 1.2 K/mcL (0.6-4.6); Mean Corpuscular Hemoglobin 30.2 pg (28.0-33.3); Mean Corpuscular Volume 91.5 fL (83.0-100.0); Mean Platelet Volume 11.5 fL (9.4-12.4); Monocytes # 0.9 K/mcL (0.0-1.3); Monocytes % 12.3 %; Neutrophils # 5.4 K/mcL (1.6-8.9); Platelet Count 228 K/mcL (140-400); Red Blood Count 3.77 M/mcL (3.82-4.97); Red Cell Distribution Width 12.6 % (11.5-14.5)
[2016-05-24 09:43] LABS: BUN/Creatinine Ratio 16 (6-26); Blood Urea Nitrogen 10 mg/dL (7-20); Calcium 8.9 mg/dL (8.6-10.8); Carbon Dioxide 22 mEq/L (19-29); Chloride 110 mEq/L (98-109); Glucose 135 mg/dL (70-99); Osmolality,Calculated 293 (280-300); Potassium 3.3 mEq/L (3.5-4.5); Sodium 141 mEq/L (136-145); eGFR For African Americans > 60 (> 60); eGFR For Non-African Americans > 60 (> 60)
--- NOTE | 2016-05-24 11:10 | Invasive Diagnostic Lab Proc ---
Name: Tory Mccullough Date of Study: 05/23/2016 Date: 1940 Ht: 61.0in Medical Record#: [id number] Age: 75 Wt: 152.82lb Gender: Female BSA: 1.69 Order #: [id number] BMI: 28.85 Physicians Procedure Physician: Jakob Sharp MD, [facility] Referring MD: Referring MD: Staff Name Position Time In Martita Perez RN Nurse 03:15 PM Linh Hummel RT (R) Monitor 03:15 PM Bianka Pruett RN Personal Consultant 03:15 PM Indications Indication Non-Stemi Procedures Performed Procedure L HRT ARTERY/VENTRICLE ANGIO PRQ CARD IVONE STENT W/ANGIO 1 VSL PRQ CARD IVONE STENT W/ANGIO 1 VSL Pre-Procedure Checklist Informed consent is complete signed and on chart. H\\T\\P is on chart. ID band is on and ID verified with patient. Patient NPO for procedure The procedure was described for the patient and questions were answered. ECG is on chart. Plan of Care Patient will tolerate the procedure without complications. Adequate level of comfort will be maintained. Hemodynamics will remain stable Patient will recover from procedure without complications. Respiratory function will be maintained. Cardiac rhythm will remain stable. Patient temperature will be maintained. Patient and/or family have verbalized understanding of the procedure. Patient Education Chief Complaint/Reason for Test: Cardiac Cath Developmental Category: Geriatric (65+ years) Developmentally Appropriate for Age: Yes Learning Barriers: None Education Needs: Procedure Education Method: Verbal Information Taught: Cardiac Cath Educational Evaluation: Able to repeat information Intravenous Access Time IV Size Location DC'd Fluid/Drip Rate Units RN 02:03 PM 20g 1 02/21" Patent On Arrival Lt Antecubital Allergies Penicillin morphine Hydromorphone Penicillins Vital Signs Time BP (mmHg) HR (bpm) O2 Sat. RR (bpm) LOC 02:04 PM 131 / 70 96 92 % 18 03:17 PM / % 5 = Fully awake and oriented or at pre-proc level 03:17 PM / % 4 = Oriented but drowsy 03:32 PM / % 4 = Oriented but drowsy 03:48 PM / % 4 = Oriented but drowsy 04:03 PM / % 4 = Oriented but drowsy 04:19 PM / % 5 = Fully awake and oriented or at pre-proc level 03:17 PM 153 / 83 106 99 % 12 03:23 PM 152 / 74 98 100 % 03:28 PM 152 / 74 100 100 % 8 03:33 PM 134 / 64 97 97 % 18 03:38 PM 137 / 62 97 98 % 13 03:43 PM 131 / 67 96 100 % 03:48 PM 152 / 72 95 97 % 11 03:53 PM 140 / 77 217 100 % 16 03:58 PM 133 / 65 92 98 % 10 04:03 PM 140 / 61 96 95 % 05:03 PM 110 / 53 % 04:08 PM 142 / 63 96 98 % 15 04:13 PM 142 / 64 96 92 % 28 04:18 PM 146 / 65 98 81 % 04:23 PM 134 / 63 99 98 % 20 04:28 PM 151 / 61 91 96 % 15 04:33 PM 148 / 66 93 95 % 12 04:38 PM 173 / 76 98 % 04:43 PM 139 / 66 95 % 44 04:48 PM 144 / 63 96 98 % 23 04:53 PM 143 / 66 % 04:58 PM 132 / 73 % 04:34 PM / % 5 = Fully awake and oriented or at pre-proc level 04:51 PM / % 5 = Fully awake and oriented or at pre-proc level Procedural Medications Time Medication Dose Units Method Given By 03:17 PM Oxygen 2 L/min nasal cannula Bianka Pruett RN 03:18 PM Versed 1 mg Intravenous Bianka Pruett RN 03:19 PM Fentanyl 25 mcg Intravenous Bianka Pruett RN 03:27 PM Versed 1 mg Intravenous Linh Hummel RT (R) 03:28 PM Lidocaine 2% 0.5 ml Subcutaneous Jakob Sharp MD, FACC 03:28 PM Heparin 2000 units Nitroglycerin 200 mcg Verapamil 2.5 mg Intraarterial Jakob Sharp MD, FACC 03:42 PM Heparin 2500 units Intravenous Bianka Pruett RN 03:54 PM Nitroglycerin 200 mcg Intracoronary Jakob Sharp MD 04:03 PM Aggrastat Bolus: 33 ml Intravenous Bianka Pruett RN 04:04 PM Aggrastat 5mg/100ml 12 ml/hr Intravenous Bianka Pruett RN 04:22 PM Nitroglycerin 200 mcg Intracoronary Jakob Sharp MD 04:25 PM Nitroglycerin 100 mcg Intracoronary Jakob Sharp MD 04:27 PM Nitroglycerin 100 mcg Intracoronary Jakob Sharp MD 04:39 PM Fentanyl 25 mcg Intravenous Bianka Pruett RN ASA Classification: CLASS II- Mild systemic disease (i.e. well-controlled diabetes, hypertension, asthma, cigarette smoking) Brennon Score Preprocedure Postprocedure Activity 2- Moves 4 extremities sustained head lift Activity 2- Moves 4 extremities sustained head lift Circulation 2- SBP +/= 20 points of pre-anesthetic level Circulation 2- SBP +/= 20 points of pre-anesthetic level Consciousness 2- Awake and alert oriented x 3 Consciousness 2- Awake and alert oriented x 3 O2 Saturation 2- Able to maintain O2 satruation of 92% on room air O2 Saturation 2- Able to maintain O2 satruation of 92% on room air Respiratory 2- Able to deep breathe and cough well Respiratory 2- Able to deep breathe and cough well Total Score 10 Total Score 10 Contrast Agent: Isovue Diagnostic Contrast: 173 ml Total Contrast: 173 ml Fluoro Dose: 678 mGy Activated Clotting Time Time Seconds to Clot 03:42 PM 174 Procedure Log Time Note Enter By 03:15 PM Pt arrived to laboratory sampler 2 at 15:15 dsp 03:15 PM Martita Perez RN Position: Nurse Time in: 15:15 dsp 03:15 PM Linh Hummel RT (R) Position: Monitor Time in: 15:15 dsp 03:15 PM Bianka Pruett RN Position: Personal Consultant Time in: 15:15 03:15 PM Patient charges- Angio tray pack, Navilyst 3mm J, Pulse Oximetry and ACIST tubing and transducer dsp 03:15 PM IV Supplies used: J loop Angio Cath. 03:16 PM Case Delayed No 03:16 PM Physician arrived 15:16 dsp 03:16 PM ASA Class CLASS II- Mild systemic disease (i.e. well-controlled diabetes, hypertension, asthma, cigarette smoking) dsp 03:16 PM Meet and greet completed 03:16 PM Sign in performed according to hospital policy. 03:16 PM Procedure start 15:16 dspell 03:16 PM CathStat 03:16 PM Case Start 03:17 PM Vitals capture started with the following parameters, Patient=Adult, Interval=5 min, Initial Likxrchh=881 mmHg, Deflation Rate=5 mmHg, Cuff placed on Left Arm 03:17 PM Time: 15:17 Oxygen on at 2 L/min per nasal cannula by Bianka Pruett RN :17 PM Time: 15:17 Patient comfortable and pain free: Yes :17 PM Time: 15:17LOC: 5 = Fully awake and oriented or at pre-proc level : PM HF=843 bpm, KUPX=452/83 mmhg, SpO2=99.0 %, Resp=12 B/min, Comment=NSR 03:18 PM Clinical Presentation: Non-STEMI : PM Time: 15:18 Versed 1 mg Intravenous Given by Bianka Pruett RN : PM Time: 15:19 Fentanyl 25 mcg Intravenous Given by Bianka Pruett RN 03:20 PM Hair removed from procedure site in holding area using clippers. Right groin, right wrist prepped with Chloraprep by Martita Perez RN, safety strap applied then patient was draped. Skin intact. [facility]:23 PM HR=98 bpm, QKWP=312/74 mmhg, UmH5=155.0 %, Comment=NSR 03: PM Time: 15: Versed 1 mg Intravenous Given by Linh Hummel RT (R) [facility]: PM HK=485 bpm, WGXB=633/74 mmhg, ZhY7=996.0 %, Resp=8 B/min, Comment=NSR 03:28 PM Time out performed according to hospital policy [facility] PM Time: 15:28 .5 ml Lidocaine 2% to right radial Subcutaneous Given by Jakob Sharp MD, [facility] :28 PM Time: 15:28 Patient given 2000 units Heparin, 200 mcg Nitroglycerin, and 2.5 mg Verapamil Intraarterial by Jakob Sharp MD, [facility] 03:29 PM Access obtained by percutaneous puncture. 5Fr 10cm Terumo [place] sheath placed in right Radial artery. [id number] [facility] 03:30 PM 5Fr FR 4 catheter inserted over the wire [facility] 03:31 PM 0.035 260cm Navilyst 3mmJ wire [id number] [facility] 03:32 PM 0.035 145cm VSI Robi-Torque wire [id number] [facility]:32 PM Time: 15:17 Patient comfortable and pain free: Yes dspellman 03:32 PM Time: 15:17LOC: 4 = Oriented but drowsy dspellman 03:33 PM HR=97 bpm, EZIB=039/64 mmhg, SpO2=97.0 %, Resp=18 B/min, Comment=NSR 03:33 PM Recorded Pressure: Ao, HR=98, Condition=Condition 1 (Aorta) Ao 157/72/107 03:33 PM Recorded Pressure: Ao, HR=97, Condition=Condition 1 (Aorta) Ao 148/72/107 03:33 PM RCA angiography performed in multiple views. dspellman 03:34 PM Lesion found in Proximal RCA. Pre Stenosis: 99 Pre SUDHIR Flow: dspellman 03:34 PM Coronary Dominance: right dspellman 03:34 PM Catheter removed dspellman 03:34 PM 5Fr FL 4 catheter inserted over the wire DN dspellman 03:34 PM LCA angiography performed in multiple views. dspellman 03:35 PM Recorded Pressure: Ao, HR=98, Condition=Condition 1 (Aorta) Ao 153/77/109 03:37 PM Lesion found in Mid Circumflex. Pre Stenosis: 99 Pre SUDHIR Flow: dspellman 03:37 PM Recorded Pressure: Ao, HR=93, Condition=Condition 1 (Aorta) Ao 123/71/95 03:37 PM Lesion found in Proximal LAD. Pre Stenosis: 50 Pre SUDHIR Flow: dspellman 03:38 PM Lesion found in Mid LAD. Pre Stenosis: 60 Pre SUDHIR Flow: dspellman 03:38 PM HR=97 bpm, GINL=655/62 mmhg, SpO2=98.0 %, Resp=13 B/min, Comment=NSR 03:38 PM Catheter removed dspellman 03:38 PM 5Fr Pigtail catheter inserted over the wire [facility] dspellman 03:38 PM Catheter selectively placed in left ventricle dspellman 03:38 PM Bolus angiogram of left Ventricle complete: 10 ml/sec for a total of 20 mls dspellman 03:39 PM Recorded Pressure: LV, HR=92, Condition=Condition 1 (Left Ventricle) LV 167/29/17 03:40 PM Recorded Pressure: LV, HR=96, Condition=Condition 1 (Left Ventricle) LV 161/0/14 03:40 PM Recorded Pressure: LV, Ao, HR=86, Condition=Condition 1 (Left Ventricle) LV 173/1/37, (Aorta) Ao 147/57/90 03:41 PM Catheter removed dspellman 03:41 PM Proximal Left Anterior Descending Coronary Artery with 50% stenosis. If graft is supplying this territory, 0 % stenosis. dspellman 03:41 PM Mid/Distal Left Anterior Descending Coronary Artery and diagonal branches with 60% stenosis. If graft is supplying this area, 0 % stenosis dspellman 03:41 PM Circumflex, Obtuse Marginal, Left Posterior Descending, and Left Posterolateral Coronary Arteries with 99 % stenosis. If graft is supplying this area, 0 % stenosis dspellman 03:42 PM Right Coronary, Right Posterior Descending Arteries with Right Posterolateral and Acute Marginal branches with 99 % stenosis. If graft is supplying this area, 0 % stenosis dspellman 03:42 PM Recorded Pressure: Ao, AZ=498, Condition=Condition 1 (Aorta) Ao 175/76/120 03:42 PM At 15:42 the ACT was 174 seconds. dspellman 03:43 PM Time: 15:42 Heparin 2500 units Intravenous Given by Bianka Pruett RN dspellman 03:43 PM HR=96 bpm, HCHT=723/67 mmhg, VpR7=098.0 %, Comment=NSR 03:43 PM PCI Status Urgent dspellman 03:43 PM PCI lesion in Proximal RCA. dspellman 03:44 PM 6Fr RBR 3.5 Convey guide catheter was used to cannulate the PCI vessel unsuccessfully. reused? No dspellman 03:44 PM Inflation device was opened. dspellman 03:44 PM Guide catheter removed intact. dspellman 03:45 PM 6Fr RBL 3.5 Convey guide catheter was used to cannulate the PCI vessel successfully. reused? No dspellman 03:45 PM PCI lesion in Mid Circumflex. dspellman 03:47 PM Time: 15:32 Patient comfortable and pain free: Yes dspellman 03:48 PM Time: 15:32LOC: 4 = Oriented but drowsy dspellman 03:48 PM .014 PT Graphix 182cm guide wire across target lesion- successful. reused? No dspellman 03:48 PM HR=95 bpm, GLHB=912/72 mmhg, SpO2=97.0 %, Resp=11 B/min, Comment=NSR 03:49 PM 2.0 mm x 8 mm Emerge Monorail balloon across target lesion- successful. reused? No dspellman 03:50 PM Balloon inflated @ 14 sen for 12 seconds dspellman 03:50 PM Balloon inflated @ 14 sen for 15 seconds dspellman 03:50 PM Balloon catheter removed intact. dspellman 03:51 PM 3.5mm x 20mm Synergy drug-eluting stent across target lesion- successful Lot #[id number] dspellman 03:53 PM Stent deployed @ 16 sen for 12 seconds dspellman 03:53 PM IF=641 bpm, IZQJ=409/77 mmhg, McE0=989.0 %, Resp=16 B/min, Comment=NSR 03:53 PM Stent delivery system removed intact. dspellman 03:53 PM Recorded Pressure: Ao, HR=70, Condition=Condition 1 (Aorta) Ao 137/78/106 03:54 PM Time: 15:54 Nitroglycerin 200 mcg Intracoronary Given by Jakob Sharp MD dspell 03:54 PM 3.5 mm x 8mm NC Trek Rx balloon across target lesion- successful. reused? No dspellman 03:56 PM Balloon inflated @ 18 sen for 10 seconds dspellman 03:56 PM Balloon inflated @ 18 sen for 23 seconds dspellman 03:57 PM Balloon catheter removed intact. dspellman 03:58 PM HR=92 bpm, UBQJ=185/65 mmhg, SpO2=98.0 %, Resp=10 B/min, Comment=NSR 03:58 PM Recorded Pressure: Ao, HR=93, Condition=Condition 1 (Aorta) Ao 126/70/95 04:00 PM Guide wire removed intact. dspell 04:00 PM 6Fr JR 4 Runway guide catheter was used to cannulate the PCI vessel unsuccessfully. reused? No dspellman 04:02 PM Time: 15:47 Patient comfortable and pain free: Yes dspell 04:03 PM HR=96 bpm, AVEK=658/61 mmhg, SpO2=95.0 %, Comment=NSR 04:03 PM Time: 15:48LOC: 4 = Oriented but drowsy dspell 04:04 PM Time: 16:03 Aggrastat Bolus: 33 ml Intravenous Given by Bianka Pruett RN Valles pump dspmelanie 04:04 PM Time: 16:04 Aggrastat 5mg/100ml 12 ml Intravenous Given by Bianka Pruett RN Valles pump dspellman 04:04 PM Guide catheter removed intact. dspellman 04:05 PM 5Fr MPA Convey guide catheter was used to cannulate the PCI vessel unsuccessfully. reused? No dspellman 04:07 PM Guide catheter removed intact. dspellman 04:08 PM HR=96 bpm, AICR=329/63 mmhg, SpO2=98.0 %, Resp=15 B/min, Comment=NSR 04:08 PM 5Fr JR 4 Convey guide catheter was used to cannulate the PCI vessel unsuccessfully. reused? No dspellman 04:10 PM Guide catheter removed intact. dspellman 04:11 PM 6Fr AR1SH Runway guide catheter was used to cannulate the PCI vessel successfully. reused? No dspellman 04:12 PM .014 PT Graphix 182cm guide wire across target lesion- successful. reused? Yes dspellman 04:12 PM Recorded Pressure: Ao, HR=97, Condition=Condition 1 (Aorta) Ao 151/69/105 04:13 PM HR=96 bpm, DAYW=777/64 mmhg, SpO2=92.0 %, Resp=28 B/min, Comment=NSR 04:13 PM Recorded Pressure: Ao, HR=96, Condition=Condition 1 (Aorta) Ao 146/68/102 04:14 PM 2.0 mm x 8 mm Emerge Monorail balloon across target lesion- successful. reused? No dspellman 04:15 PM Balloon inflated @ 14 sen for 10 seconds dspellman 04:15 PM Balloon inflated @ 14 sen for 4 seconds dspellman 04:16 PM Balloon catheter removed intact. dspell 04:17 PM 2.75mm x 12mm Synergy drug-eluting stent across target lesion- successful Lot #[id number] dspell 04:18 PM Time: 16:02 Patient comfortable and pain free: Yes dspellman 04:18 PM HR=98 bpm, UNBX=706/65 mmhg, SpO2=81.0 %, Comment=NSR 04:18 PM Recorded Pressure: Ao, HR=60, Condition=Condition 1 (Aorta) Ao 131/71/97 04:19 PM Time: 16:03LOC: 4 = Oriented but drowsy dspellman 04:19 PM Stent deployed @ 16 sen for 15 seconds dspellman 04:19 PM Stent delivery system removed intact. dspellman 04:20 PM 3.0 mm x 15mm NC Emerge balloon across target lesion- successful. reused? No dspellman 04:20 PM Recorded Pressure: Ao, HR=99, Condition=Condition 1 (Aorta) Ao 151/75/109 04:21 PM Balloon inflated @ 20 sen for 13 seconds dspellman 04:21 PM Recorded Pressure: Ao, HR=64, Condition=Condition 1 (Aorta) Ao 128/67/93 04:22 PM Time: 16:22 Nitroglycerin 200 mcg Intracoronary Given by Jakob Sharp MD dspellman 04:23 PM HR=99 bpm, URLG=246/63 mmhg, SpO2=98.0 %, Resp=20 B/min, Comment=NSR 04:23 PM Balloon catheter removed intact. dspellman 04:23 PM 3.5 mm x 8mm NC Emerge balloon across target lesion- successful. reused? No dspellman 04:25 PM Balloon inflated @ 16 sen for 15 seconds dspellman 04:25 PM Balloon inflated @ 14 sen for 6 seconds dspellman 04:26 PM Time: 16:25 Nitroglycerin 100 mcg Intracoronary Given by Jakob Sharp MD dspellman 04:27 PM Balloon inflated @ 24 sen for 20 seconds dspellman 04:28 PM Time: 16:27 Nitroglycerin 100 mcg Intracoronary Given by Jakob Sharp MD dspellman 04:28 PM HR=91 bpm, NUXU=756/61 mmhg, SpO2=96.0 %, Resp=15 B/min, Comment=NSR 04:29 PM Guide wire removed intact. dspellman 04:29 PM Balloon catheter removed intact. dspellman 04:29 PM Guide catheter removed intact. dspellman 04:30 PM Procedure completed at 16:30 dspellman 04:31 PM Sign out completed: Radiation Dose 678.39 mGy Fluoro Time: 17.1 Isovue 370 - 200ml contrast ml given by Jakob Sharp MD, [facility]. Complications: NoneCardiac Rehab Consult needed: YesConfirmed administered medications: Yes dspellman 04:32 PM Isovue 370 - 200ml,1 Bottle(s) used. dspellman 04:32 PM Arterial sheath pulled, Vasc Band closure device used and was Successful S/N. dspellman 04:32 PM 17 ml air in Vasc Band. dspellman 04:32 PM Post ECG NSR dspellman 04:32 PM Post Blood Pressure 151/61 dspellman 04:33 PM Time: 16:18 Patient comfortable and pain free: Yes 04:33 PM HR=93 bpm, OBNF=904/66 mmhg, SpO2=95.0 %, Resp=12 B/min, Comment=NSR 04:33 PM 16:33 Post Pulses Rt Radial 2+ dspell 04:33 PM Information taught Cardiac Cath, PCI, and Vasc Band dspell 04:33 PM Education needs Procedure, Plan of Care, and Responsibilities of Patient in Care dspell 04:34 PM Learning barriers :None :34 PM Education Methods Verbal dspell 04:34 PM Education evaluation Able to repeat information :34 PM Time: 16:19LOC: 5 = Fully awake and oriented or at pre-proc level dspell 04:35 PM Site status No bleeding/hematoma - Rt Wrist as reported by Sites, Marilia RT (R) at 16:34 ell 04:38 PM Family placed in consult room. dspell 04:38 PM Complications: None dspell 04:38 PM Fluoro Time: 17.1 dsp 04:38 PM Isovue 370 - 200ml contrast 173 ml given by Jakob Sharp MD, [facility]. ell 04:38 PM HR=98 bpm, QADW=204/76 mmhg, Comment=NSR 04:38 PM Radiation Dose 678.39 mGy dspell 04:39 PM Time: 16:39 Fentanyl 25 mcg Intravenous Given by Bianka Pruett RN ell 04:40 PM Site status hematoma - Rt Wrist as reported by Bianka Pruett RN at 17:11 dspell 04:43 PM HR=95 bpm, DXVJ=815/66 mmhg, Resp=44 B/min, Comment=NSR 04:48 PM HR=96 bpm, IXMM=533/63 mmhg, SpO2=98.0 %, Resp=23 B/min, Comment=NSR 04:51 PM Time: 16:34LOC: 5 = Fully awake and oriented or at pre-proc level dspell 04:51 PM Time: 16:33 Patient comfortable and pain free: Yes dspell 04:51 PM Report given to Zandra SOTO Pt taken to 2A Room #11. 16:51 dspellman 04:51 PM Delay to floor No dspell 04:53 PM WKNB=552/66 mmhg 04:58 PM PLDB=148/73 mmhg 05:03 PM MKSG=136/53 mmhg 05:06 PM Time: 16:51 Patient comfortable and pain free: Yes dsp 05:06 PM Time: 16:51LOC: 5 = Fully awake and oriented or at pre-proc level dspell 05:10 PM repositioning of the vasc band, pressure held x 20 minutes. site soft, but bruising noted to right hand. [facility] 05[facility]12 PM Patient out of room: 17:12 dspell 05:40 PM Hematoma noted. Vasc band removed pressure held x 30 minutes. Site soft with bruising noted in right wrist and hand. Splint board used to keep hand still. Pressure held by Bianka Pruett RN and Linh Hummel(R) Pt taken to room. Family at the bedside. [facility] Complications Complication None None Hemodynamics Pressures Site Systolic/A Wave Diastolic/V Wave Mean AO 157 72 107 AO 148 72 107 AO 153 77 109 AO 123 71 95 LV 167 29 17 LV 161 0 14 LV 173 1 37 AO 147 57 90 AO 175 76 120 AO 137 78 106 AO 126 70 95 AO 151 69 105 AO 146 68 102 AO 131 71 97 AO 151 75 109 AO 128 67 93 Post Procedure Information Blood Pressure: 151/61 mmHg Rhythm: NSR Post procedural instructions were given Closure Device Time Device Success/Fail 05/23/2016 4:51:00 PM Mechanical Compression Successful Site Checks Time Location Status Staff Sheath In? Note 04:34 PM Rt Wrist No bleeding/hematoma Sites, Marilia RT (R) 05:11 PM Rt Wrist hematoma Bianka Pruett RN Pulses Time Site Pre-Procedure Post-Procedure Note 05/23/2016 2:03:00 PM Bilateral radial 2+ 05/23/2016 2:04:00 PM Bilateral DP 1+ 4:33:00 PM Rt Radial 2+ Updated by RT Roxie (R) on 05/24/2016 11:05:09 AM RT Roxie electronically signed on 05/24/2016 11:06:08 AM with status of Final
[2016-05-24 11:13] VITALS: BP 129/69
--- NOTE | 2016-05-24 13:43 | Discharge Summary ---
Date of Encounter: 05/24/16 Time of Encounter: 09:00 - Discharge Diagnosis (1) Non-STEMI (non-ST elevated myocardial infarction) Priority: Primary Status: Acute (2) Anxiety Priority: Secondary Status: Chronic (3) Smoker Priority: Secondary Status: Chronic (4) Essential hypertension Priority: Secondary Status: Chronic - Discharge Medications Prescriptions: Aspirin Enteric Coated [Aspirin EC] 81 mg PO DAILY #30 tablet. Atorvastatin [Lipitor] 40 mg PO HS #30 tablet Metoprolol [Lopressor] 50 mg PO BID #60 tablet Ticagrelor [Brilinta] 90 mg PO BID #60 tablet Home Medications: LORazepam [Ativan] 0.5 mg PO TID PRN 05/22/16 [History] Aspirin Enteric Coated [Aspirin EC] 81 mg PO DAILY #30 tablet. 05/24/16 [Rx] Atorvastatin [Lipitor] 40 mg PO HS #30 tablet 05/24/16 [Rx] Metoprolol [Lopressor] 50 mg PO BID #60 tablet 05/24/16 [Rx] Ticagrelor [Brilinta] 90 mg PO BID #60 tablet 05/24/16 [Rx] Allergies/Adverse Reactions: Allergies Hydromorphone [From Dilaudid] Allergy (Verified 01/12/15 10:01) See Comments morphine Allergy (Verified 01/12/15 10:01) See Comments Penicillins Allergy (Verified 01/12/15 10:01) See Comments Procedures/tests Complete & Pending: Procedures Performed prior 72 hours Category Date Time Status CL Cardiac Catheterization [CL] Routine Child Study Team Director 05/22/16 17:22 Completed EKG [ECG 12 lead ECG] [ECG] Routine Y 05/24/16 08:44 Ordered EV echocardiogram Routine Y 05/23/16 14:49 Completed Date of admission: 05/22/16 14:13 Primary care physician: Logan Sommer Jr, MD Consults: 05/22/16 17:22 Consult to Cardiac Rehabilitation-Phase1 [CONS] Routine Comment: Reason for Consult: NSTEMI Call Completed: No Discharging clinician: Emilia March Anticipated date of discharge: 05/24/16 - Patient Status Disposition: Home, Self-Care Condition: Good Functional capacity at discharge: independent ambulation Overall status at discharge: patient is progressing back to baseline - Discharge Instructions Instructions: Myocardial Infarction (DC), Chronic Hypertension (DC), Anxiety ( DC) Follow Up With: Logan Sommer Jr, MD [Primary Care Provider] - (elizabeth request sent on 05/23/16) Additional Instructions: F/up with [facility] in 1-2 weeks No driving x 1 week. No heavy lifting over 5lbs with right arm for one week. Instructed to keep area dry and clean. Remove dressing after 24 hours. - Diet and Activity Activity: resume usual activities as tolerated Diet: low fat, low cholesterol, low salt diet Hospital course: Ms. Mccullough is a 75 year old female admitted with chest pain and noted to have elevated troponin. She was started on IV heparin drip along with aspirin, beta rosa and statin for possible non-ST elevation AL. Cardiology has been consulted and patient underwent left heart catheterization which showed severe three-vessel disease and patient received 2 drug-eluting stents to proximal RCA and mid circumflex arteries. Echocardiogram was done which showed preserved ejection fraction at 65%, moderate left ventricular diastolic dysfunction, mild MR, mild to moderate TR and moderate pulmonary hypertension. Patient was noted to have somewhat uncontrolled blood pressure and her metoprolol is being increased. She is noted to have significant ecchymosis at her right wrist and dorsal hand subsequent to heart catheterization, no focal hematoma/ischemia. She is now medically stable for discharge with close outpatient follow-up with cardiology, discharge instructions were reviewed and medication compliance has been reinforced. Time spent discussing smoking cessation with patient: 3 to 10 minutes - Time Spent with Patient Total time spent providing and/or coordinating discharge services: Greater than 30 minutes (45 min) - Constitutional Vitals: Temp Pulse Resp BP Pulse Ox 98.0 F 89 16 129/69 91 05/24/16 10:00 05/24/16 10:00 05/24/16 10:00 05/24/16 10:05/24/16 10:00 General appearance: Present: A&O X 3, answers questions appropriately - Cardiovascular Cardiovascular exam: Present: RRR, +S1, +S2. Absent: diastolic murmur, gallop, rubs, systolic murmur - Extremities Exam Extremities exam: Present: normal inspection, warm, radial pulses palpable and symetrical. Absent: calf tenderness, cyanotic, pedal edema Additional comments: Right dorsal hand and distal forearm with ecchymosis and some tenderness on dorsal hand. No focal swelling/hematoma. No restricted range of motion in wrist and fingers. 2+ palpable radial pulse. - VTE Documentation of Mechanical Device: Graduated compression elastic hosiery
--- NOTE | 2016-05-24 16:04 | Electrocardiograph Report ---
[place] [id number] Test Date: 2016-05-24 Pat Name: Tory Mccullough Department: 112 Room: 2A11 Gender: F Tool Operator: [id number] : 1940 Requested By: Brian Lee Order Number: [id number] Reading MD: Jakob Sharp MD Measurements Intervals [place] Rate: 85 P: 66 MI: 144 QRS: -24 QRSD: 94 T: -13 QT: 358 QTc: 400 Interpretive Statements SINUS RHYTHM BORDERLINE LEFT AXIS DEVIATION LOW QRS VOLTAGE IN PRECORDIAL LEADS MINIMAL VOLTAGE CRITERIA FOR LVH INFERIOR ISCHEMIA Electronically Signed On 05-24-2016 16:02:44 EDT by Jakob Sharp MD
== END 2016-05-24 14:35 | disposition home or self-care (01) | DRG 247 ==
LOC: EMEROO 10:12 → 2ANU 10:12 → SUATTDRO 14:13
PROVIDERS: ADMIT Nurse Practitioner Family; ATTEND Internal Medicine

== ENCOUNTER 2016-06-07 09:16 | Inpatient (IN) ==
--- NOTE | 2016-06-07 09:37 | Emergency Department Note ---
START Narrative - START START: I examined this patient and my medical decision-making was reviewed with the MEAT SEA[employer] ASSOCIATE/PA/Advanced Practice Nurse/Resident Physician. I agree with the documented findings, disposition and treatment plan as described except to the extent set forth below. ED attending note: Patient seen with emergency medicine resident Dr. Gimenez. Please see a copy of his note for details of the H&P, evaluation, management and disposition of this patient. We independently had [id number] contact with the patient Briefly: 75-year-old female with history of recent stent placement on the fourth of this month sent in by her section repairer Dr. Flores for symptoms consistent with her previous stent angina of abdominal discomfort and shakiness. EKG shows nonspecific changes. Troponin chest x-ray and other lab workup pending. Anticipated admission with cardiology consultation. Provided 30 minutes critical care service this patient. Disposition pending.
[2016-06-07] MEDS ORDERED: 0.9 % Sodium Chloride 500 ML IVC ONE (09:38)
[2016-06-07] MEDS ORDERED: *HR* LORazepam 2 MG/ML VIAL IVP ONE (09:52)
--- NOTE | 2016-06-07 09:55 | Emergency Department Note ---
Disposition Clinical Impression: Non-STEMI (non-ST elevated myocardial infarction), Elevated LFTs CHF (congestive heart failure) Qualifiers: Congestive heart failure type: unspecified congestive heart failure type Congestive heart failure chronicity: acute Qualified Code(s): I50.9 - Heart failure, unspecified Disposition: Admitted As Inpatient Condition: Fair Referrals: Logan Sommer Jr, MD [Primary Care Provider] - Forms: ED Satisfaction Letter Time of Disposition: 10:40 General Adult HPI - General Chief complaint: ED Nausea/Vomiting/Diarrhea Stated complaint: n/v, decreased intake, sent from Cards Time Seen by Provider: 06/07/16 09:32 Source: patient, family Mode of arrival: wheelchair Limitations: no limitations Nursing Notes Reviewed: Yes Vital Signs Reviewed: Yes - History of Present Illness HPI Narrative: Patient presents to the ED with the chief complaint of feeling shaky. Patient was sent over from her production sound mixer's office, Dr. Flores. Patient had a MT at the beginning of this month and is now status post stent placement. They did access her right radial artery for catheterization. She states since discharge from hospital. She has felt generally weak and shaky. She complains of intermittent lower abdominal pain. She complains of having abdominal fullness at times. Her main complaint is that she has no appetite. She has eaten very little over the past several days. She gets nauseated and has some vomiting of "mucus" denies any hematemesis. Denies having any bowel movements because she has not had much to eat. She has had no fever or chills, chest pain or difficulty in breathing. She states that she saw her primary care physician, shortly before her last heart attack and was having similar symptoms and thinks that she could be having issues with her heart, but is unsure. She states that she just does not feel well and this had overall generalized malaise , fatigue and weakness. States that it has been getting difficult for her to walk due to weakness. Pain Scale: 0 - Related Data Home Medications Medication Instructions Recorded Confirmed LORazepam [Ativan] 0.5 mg PO TID PRN 05/22/16 05/22/16 Previous Rx's Medication Instructions Recorded Aspirin Enteric Coated [Aspirin EC] 81 mg PO DAILY #30 tablet. 05/24/16 Atorvastatin [Lipitor] 40 mg PO HS #30 tablet 05/24/16 Metoprolol [Lopressor] 50 mg PO BID #60 tablet 05/24/16 Ticagrelor [Brilinta] 90 mg PO BID #60 tablet 05/24/16 Allergies Allergy/AdvReac Type Severity Reaction Status Date / Time Hydromorphone [From Dilaudid] Allergy See Verified 01/12/15 10:01 Comments morphine Allergy See Verified 01/12/15 10:01 Comments Penicillins Allergy See Verified 01/12/15 10:01 Comments All systems ED: reviewed and negative except as stated. Constitutional: Reports: weakness, weight change. Denies: fever, chills Eyes: Denies: vision change ENT ED: Denies: throat pain, dysphagia Cardiovascular: Reports: edema (BLE since cath). Denies: chest pain Respiratory: Denies: dyspnea Gastrointestinal: Reports: abdominal pain, nausea, vomiting, constipation. Denies: diarrhea Genitourinary: Denies: dysuria Musculoskeletal: Denies: back pain, neck pain Integumentary: Denies: rash Neurological: Reports: weakness. Denies: headache, numbness, paresthesias, confusion Psychiatric: Reports: anxiety Endocrine: Reports: fatigue Past Medical History - Past Medical History Attestation: Yes The following information was validated with the patient. Source: patient, old records reviewed, obtained from family Medical history: Reports: GERD, hypertension, myocardial infarction Surgical history: Reports: appendectomy, hysterectomy Psychiatric history: Reports: anxiety - Social History Smoking Status: Former smoker Smokeless Tobacco Status: No Alcohol use: Reports: none Drug use: Reports: none Physical Exam - General Limitations: no limitations General appearance: alert, anxious - Head Head exam: atraumatic, normocephalic, normal inspection - Eye Eye exam: Present: normal appearance, PERRL, EOMI - ENT ENT exam: normal exam, normal oropharynx, mucous membranes dry - Neck Neck exam: Present: normal inspection, full ROM, trachea midline - Chest Chest inspection: Present: normal inspection, symmetric chest wall rise - Respiratory Respiratory exam: Present: normal lung sounds bilaterally - Cardiovascular Cardiovascular exam: Present: regular rate, normal rhythm, normal heart sounds - Abdominal Exam Abdominal exam: Present: soft, tenderness, normal bowel sounds. Absent: Meneses' s sign, tenderness at McBurney's Point Abdominal tenderness: Present: suprapubic, mild - Extremities Exam Extremities exam: Present: full ROM, pedal edema (2+ pitting with some redness, states chronic for last 2-3 weeks since discharge). Absent: calf tenderness - Expanded Lower Extremity Exam Hip/Pelvis exam: Present: pelvis stable - Neurological Exam Neurological exam: Present: alert, oriented X3, CN II-XII intact - Psychiatric Psychiatric exam: Present: anxious - Skin Skin exam: Present: warm, dry, intact, normal color Course Course Narrative: 75 y/o female presenting with vague symptoms of weakness, shakiness, intermittent abdominal pain. States that this could be her previous anginal equivalent. Broad workup initiated. - Reevaluation(s) Reevaluation #1: Troponin is 0.1. Troponin was elevated to .2 with her previous MT and it down trended to 0.17. Patient is having her anginal equivalent. Apparently, but is not having any chest pain or shortness of breath. I spoke with cardiology and they did not want any anticoagulation currently. She has already received aspirin earlier today, so we will complete for a full dose. Has also had Plavix today. Will admit to the hospitalist service for further workup and trending troponins. Time: 10:39 Vital Signs Temperature 98.1 F 06/07/16 09:32 Pulse Rate 102 06/07/16 09:32 Respiratory Rate 20 06/07/16 09:32 Blood Pressure 156/74 06/07/16 09:32 O2 Sat by Pulse Oximetry 100 06/07/16 09:32 Temperature 98.1 F 06/07/16 09:32 Pulse Rate 105 06/07/16 10:45 Respiratory Rate 18 06/07/16 10:45 Blood Pressure 147/54 06/07/16 10:45 O2 Sat by Pulse Oximetry 100 06/07/16 10:45 Oxygen Delivery Oxygen Delivery Room Air Medical Decision Making - Medical Records Medical records reviewed: Yes I reviewed the patient's medical records. - Lab Data Lab results reviewed: Yes I reviewed the patient's lab results. Result diagrams: 06/07/16 10:00 06/07/16 10:00 Lab Results 06/07/16 06/07/16 06/07/16 Range/Units 10:00 10:00 10:00 WBC (4.3-11.1) K/mcL RBC (3.82-4.97) M/mcL Hgb (11.5-15.4) g/dL Hct (35.3-44.9) % MCV (83.0-100.0) fL MCH (28.0-33.3) pg MCHC (31.6-35.5) g/dL RDW (11.5-14.5) % Plt Count (140-400) K/mcL MPV (9.4-12.4) fL Immature Gran % (0-4) % Seg Neutrophils % % Lymphocytes % % Monocytes % % Eosinophils % % Basophils % % Neutrophils # (1.6-8.9) K/mcL Lymphocytes # (0.6-4.6) K/mcL Monocytes # (0.0-1.3) K/mcL Eosinophils # (0.0-0.6) K/mcL Basophils # (0.0-0.2) K/mcL Immature Plt Fraction (1.1-6.1) % PT 13.5 H (9.4-12.1) Seconds INR 1.2 APTT 31.1 (26.0-36.0) Seconds Sodium 142 (136-145) mEq/L Potassium 4.5 (3.5-4.5) mEq/L Chloride 107 (98-109) mEq/L Carbon Dioxide 24 (19-29) mEq/L BUN 32 H (7-20) mg/dL Creatinine 0.69 (0.57-1.11) mg/dL Est GFR ( Amer) > 60 (> 60) Est GFR (Non-Af Amer) > 60 (> 60) BUN/Creatinine Ratio 46 H (6-26) Glucose 118 H (70-99) mg/dL Calculated Osmolality 302 H (280-300) Lactic Acid (0.5-2.2) mmol/L Calcium 10.2 (8.6-10.8) mg/dL Total Bilirubin 0.9 (0.2-1.2) mg/dL Direct Bilirubin 0.4 (0.0-0.5) mg/dL Indirect Bilirubin 0.5 (0.0-1.2) mg/dL AST 103 H (5-34) Units/L ALT 136 H (0-55) Units/L Alkaline Phosphatase 109 (38-126) Units/L Creatine Kinase 26 L (29-168) Units/L Troponin I (0-0.03) ng/mL B-Natriuretic Peptide 572 H (0-100) pg/mL Serum Total Protein 7.1 (6.0-8.3) g/dL Albumin 2.9 L (3.5-5.0) g/dL Globulin 4.2 H (2.4-3.5) g/dL Albumin/Globulin Ratio 0.7 L (1.1-2.2) Lipase 25 (8-78) Units/L TSH 0.000 L (0.350-4.840) mcIU/mL Urine Color (Yellow) Urine Clarity (Clear) Urine pH (5.0-8.0) pH Units Ur Specific Hurley (1.010-1.025) Urine Protein (Neg-Trace) mg/dL Urine Glucose (UA) (Normal) mg/dL Urine Ketones (Negative) mg/dL Urine Blood (Negative) Urine Nitrite (Negative) Urine Bilirubin (Negative) Urine Urobilinogen (Normal) mg/dL Ur Leukocyte Esterase (Negative) Urine Microscopic RBC (0-3) per hpf Urine Microscopic WBC (0-3) per hpf Ur Squamous Epith Cells (None-Few) per lpf Calcium Oxalate Crystal Urine Bacteria (None-Few) per hpf Hyaline Casts (None-Few) per lpf Ur Culture Indicated? (NO) 06/07/16 06/07/16 06/07/16 Range/Units 10:00 10:00 10:00 WBC 8.7 (4.3-11.1) K/mcL RBC 3.93 (3.82-4.97) M/mcL Hgb 11.6 (11.5-15.4) g/dL Hct 35.5 (35.3-44.9) % MCV 90.3 (83.0-100.0) fL MCH 29.5 (28.0-33.3) pg MCHC 32.7 (31.6-35.5) g/dL RDW 12.3 (11.5-14.5) % Plt Count 341 (140-400) K/mcL MPV 10.9 (9.4-12.4) fL Immature Gran % 0.5 (0-4) % Seg Neutrophils % 75.0 % Lymphocytes % 13.4 % Monocytes % 10.8 % Eosinophils % 0.1 % Basophils % 0.2 % Neutrophils # 6.5 (1.6-8.9) K/mcL Lymphocytes # 1.2 (0.6-4.6) K/mcL Monocytes # 0.9 (0.0-1.3) K/mcL Eosinophils # 0.0 (0.0-0.6) K/mcL Basophils # 0.0 (0.0-0.2) K/mcL Immature Plt Fraction 5.6 (1.1-6.1) % PT (9.4-12.1) Seconds INR APTT (26.0-36.0) Seconds Sodium (136-145) mEq/L Potassium (3.5-4.5) mEq/L Chloride (98-109) mEq/L Carbon Dioxide (19-29) mEq/L BUN (7-20) mg/dL Creatinine (0.57-1.11) mg/dL Est GFR ( Amer) (> 60) Est GFR (Non-Af Amer) (> 60) BUN/Creatinine Ratio (6-26) Glucose (70-99) mg/dL Calculated Osmolality (280-300) Lactic Acid 2.0 (0.5-2.2) mmol/L Calcium (8.6-10.8) mg/dL Total Bilirubin (0.2-1.2) mg/dL Direct Bilirubin (0.0-0.5) mg/dL Indirect Bilirubin (0.0-1.2) mg/dL AST (5-34) Units/L ALT (0-55) Units/L Alkaline Phosphatase (38-126) Units/L Creatine Kinase (29-168) Units/L Troponin I 0.10 H* (0-0.03) ng/mL B-Natriuretic Peptide (0-100) pg/mL Serum Total Protein (6.0-8.3) g/dL Albumin (3.5-5.0) g/dL Globulin (2.4-3.5) g/dL Albumin/Globulin Ratio (1.1-2.2) Lipase (8-78) Units/L TSH (0.350-4.840) mcIU/mL Urine Color (Yellow) Urine Clarity (Clear) Urine pH (5.0-8.0) pH Units Ur Specific [place]ley (1.010-1.025) Urine Protein (Neg-Trace) mg/dL Urine Glucose (UA) (Normal) mg/dL Urine Ketones (Negative) mg/dL Urine Blood (Negative) Urine Nitrite (Negative) Urine Bilirubin (Negative) Urine Urobilinogen (Normal) mg/dL Ur Leukocyte Esterase (Negative) Urine Microscopic RBC (0-3) per hpf Urine Microscopic WBC (0-3) per hpf Ur Squamous Epith Cells (None-Few) per lpf Calcium Oxalate Crystal Urine Bacteria (None-Few) per hpf Hyaline Casts (None-Few) per lpf Ur Culture Indicated? (NO) 06/07/16 Range/Units 10:16 WBC (4.3-11.1) K/mcL RBC (3.82-4.97) M/mcL Hgb (11.5-15.4) g/dL Hct (35.3-44.9) % MCV (83.0-100.0) fL MCH (28.0-33.3) pg MCHC (31.6-35.5) g/dL RDW (11.5-14.5) % Plt Count (140-400) K/mcL MPV (9.4-12.4) fL Immature Gran % (0-4) % Seg Neutrophils % % Lymphocytes % % Monocytes % % Eosinophils % % Basophils % % Neutrophils # (1.6-8.9) K/mcL Lymphocytes # (0.6-4.6) K/mcL Monocytes # (0.0-1.3) K/mcL Eosinophils # (0.0-0.6) K/mcL Basophils # (0.0-0.2) K/mcL Immature Plt Fraction (1.1-6.1) % PT (9.4-12.1) Seconds INR APTT (26.0-36.0) Seconds Sodium (136-145) mEq/L Potassium (3.5-4.5) mEq/L Chloride (98-109) mEq/L Carbon Dioxide (19-29) mEq/L BUN (7-20) mg/dL Creatinine (0.57-1.11) mg/dL Est GFR ( Amer) (> 60) Est GFR (Non-Af Amer) (> 60) BUN/Creatinine Ratio (6-26) Glucose (70-99) mg/dL Calculated Osmolality (280-300) Lactic Acid (0.5-2.2) mmol/L Calcium (8.6-10.8) mg/dL Total Bilirubin (0.2-1.2) mg/dL Direct Bilirubin (0.0-0.5) mg/dL Indirect Bilirubin (0.0-1.2) mg/dL AST (5-34) Units/L ALT (0-55) Units/L Alkaline Phosphatase (38-126) Units/L Creatine Kinase (29-168) Units/L Troponin I (0-0.03) ng/mL B-Natriuretic Peptide (0-100) pg/mL Serum Total Protein (6.0-8.3) g/dL Albumin (3.5-5.0) g/dL Globulin (2.4-3.5) g/dL Albumin/Globulin Ratio (1.1-2.2) Lipase (8-78) Units/L TSH (0.350-4.840) mcIU/mL Urine Color Yellow (Yellow) Urine Clarity Cloudy A (Clear) Urine pH 6.0 (5.0-8.0) pH Units Ur Specific [place] 1.028 H (1.010-1.025) Urine Protein 30 H (Neg-Trace) mg/dL Urine Glucose (UA) Normal (Normal) mg/dL Urine Ketones Trace H (Negative) mg/dL Urine Blood Trace H (Negative) Urine Nitrite Negative (Negative) Urine Bilirubin Negative (Negative) Urine Urobilinogen Normal (Normal) mg/dL Ur Leukocyte Esterase Trace H (Negative) Urine Microscopic RBC 0-3 (0-3) per hpf Urine Microscopic WBC 5-15 H (0-3) per hpf Ur Squamous Epith Cells Many H (None-Few) per lpf Calcium Oxalate Crystal Present Urine Bacteria Few (None-Few) per hpf Hyaline Casts Moderate H (None-Few) per lpf Ur Culture Indicated? YES A (NO) - Radiology Data Radiology results reviewed: Yes I reviewed the patient's radiology results. - EKG Data EKG #1 EKG attestation: Yes I reviewed and interpreted this EKG. EKG results narrative: Sinus rhythm, rate 98, IA interval 146, to rest 93, QTC 405, left axis deviation , developing right bundle branch block, nonspecific ST-T wave changes that are similar to previous. Critical Care Time Critical Care Time: Yes Total Critical Care Time: 30 Attestation: Critical care performed: Time is exclusive of separately billable procedures. Time includes: direct patient care, patient reassessment, coordination of patient care, interpretation of data (laboratory data, radiology data, and respiratory data), review of patient's medical records, medical consultation and documentation of patient care. Procedures included in critical care time: Procedures excluded from critical care time: Miriam - Miriam Situation: Demographics, MOA Background: Presenting Complaint, Relevant PMH, Meds, & Allergies Assessment: Vital Signs, Course and respsone to treatment, Exam Concerns, Patient/Family Expectation, Pertinant Lab Results, Outstanding Labs Recommendation: Recommendation based on pending studies, treatments, or consults Miriam Report Given to: Dr. Yobani Pineda Repor Time: 11:09
[2016-06-07 10:10] LABS: Basophils % 0.2 %; Eosinophils % 0.1 %; Hematocrit 35.5 % (35.3-44.9); Hemoglobin 11.6 g/dL (11.5-15.4); Immature Granulocytes % 0.5 % (0-4); Immature Platelets 5.6 % (1.1-6.1); Lymphocytes # 1.2 K/mcL (0.6-4.6); Lymphocytes % 13.4 %; Mean Corpuscular HGB Conc 32.7 g/dL (31.6-35.5); Mean Corpuscular Hemoglobin 29.5 pg (28.0-33.3); Mean Corpuscular Volume 90.3 fL (83.0-100.0); Mean Platelet Volume 10.9 fL (9.4-12.4); Monocytes # 0.9 K/mcL (0.0-1.3); Monocytes % 10.8 %; Neutrophils # 6.5 K/mcL (1.6-8.9); Platelet Count 341 K/mcL (140-400); Red Blood Count 3.93 M/mcL (3.82-4.97); Red Cell Distribution Width 12.3 % (11.5-14.5)
[2016-06-07 10:14] LABS: INR 1.2; Prothrombin Time 13.5 Seconds (9.4-12.1)
[2016-06-07 10:17] LABS: Activated Partial Thrombo Time 31.1 Seconds (26.0-36.0)
[2016-06-07 10:25] LABS: Alanine Aminotransferase 136 Units/L (0-55); Albumin 2.9 g/dL (3.5-5.0); Albumin/Globulin Ratio 0.7 (1.1-2.2); Alkaline Phosphatase 109 Units/L (38-126); Aspartate Amino Transferase 103 Units/L (5-34); BUN/Creatinine Ratio 46 (6-26); Bilirubin,Direct 0.4 mg/dL (0.0-0.5); Bilirubin,Indirect 0.5 mg/dL (0.0-1.2); Bilirubin,Total 0.9 mg/dL (0.2-1.2); Blood Urea Nitrogen 32 mg/dL (7-20); Calcium 10.2 mg/dL (8.6-10.8); Carbon Dioxide 24 mEq/L (19-29); Chloride 107 mEq/L (98-109); Creatine Kinase 26 Units/L (29-168); Globulin 4.2 g/dL (2.4-3.5); Glucose 118 mg/dL (70-99); Lipase 25 Units/L (8-78); Osmolality,Calculated 302 (280-300); Potassium 4.5 mEq/L (3.5-4.5); Sodium 142 mEq/L (136-145); Total Protein 7.1 g/dL (6.0-8.3); eGFR For African Americans > 60 (> 60); eGFR For Non-African Americans > 60 (> 60)
[2016-06-07] MEDS ORDERED: Aspirin 81 MG TAB.CHEW PO ONE (10:36)
[2016-06-07 10:44] LABS: Bilirubin,Urine Negative (Negative); Blood,Urine Trace (Negative); Clarity,Urine Cloudy (Clear); Color,Urine Yellow (Yellow); Glucose,Urine (UA) Normal (Normal); Ketones,Urine Trace mg/dL (Negative); Leukocyte Esterase,Urine Trace (Negative); Nitrite,Urine Negative (Negative); Protein,Urine 30 mg/dL (Neg-Trace); Specific Gravity,Urine 1.028 (1.010-1.025); Urobilinogen,Urine Normal (Normal)
[2016-06-07 10:48] LABS: RBC,Urine 0-3 per hpf (0-3); Squamous Epithelial Cell,Urine Many per lpf (None-Few)
[2016-06-07 11:03] LABS: Hyaline Casts,Urine Moderate per lpf (None-Few)
[2016-06-07 11:05] LABS: Calcium Oxalate Crystals,Urine Present
[2016-06-07 11:06] LABS: Bacteria,Urine Few per hpf (None-Few)
[2016-06-07] MEDS ORDERED: Acetaminophen 325 MG TABLET PO PRN (13:23)
[2016-06-07] MEDS ORDERED: Naloxone 0.4 MG/ML INJ IVP PRN (13:23)
[2016-06-07] MEDS ORDERED: Ondansetron 4 MG/2 ML VIAL IVP PRN (13:23)
--- NOTE | 2016-06-07 13:53 | Internal Med History&Physical ---
Date of Encounter: 06/07/16 Time of Encounter: 13:00 Assessment and Plan (1) Abnormal TSH Current visit: Yes Status: Acute 1 TSH is 0 patient has symptoms of tachycardia tremors weight loss nausea anxiety. No past history of thyroid issues in the past. Patient did have a recent cardiac catheter last month suspect the patient may have had underlying thyroid issues and that this may have exacerbated the problem. We will continue with beta rosa, 2 continuous cardiac monitoring 3 we will obtain free T3-T4 (2) Elevated troponin Current visit: Yes Status: Acute 1 patient elevated prior 0.10, recent PCI with stent placement suspect this may be related to tachycardia secondary to hyperthyroidism. We will continue to trend troponins 2 we will continue with dual antiplatelet therapy as well as statin and beta rosa 3 we will consult cardiology 4 continuous cardiac monitoring (3) HTN (hypertension) Current visit: Yes Status: Acute 1 we will continue with beta rosa goal is to maintain systolic less than 140 Qualifiers: Hypertension type: essential hypertension Qualified Code(s): I10 - Essential (primary) hypertension (4) Anxiety Current visit: No Status: Chronic Continue with home medications (5) DVT prophylaxis Current visit: Yes Status: Acute Heparin subcutanous Internal Medicine - H&P: HPI Chief complaint: abd pain Admitted From: Emergency Dept Plans for Post Hospital Care: Home History of present illness: Ms. Mccullough is a 75 year old female past medical hx of GERD coronary artery disease with recent stent placement. PCI last month with IVONE to RCA and mLCX renal disease. Endocrine patient since her Last month she has been experiencing increased weakness tremors anorexia nausea, weight loss difficulty walking lower extremity swelling as well as redness. She denies palpitations over the state that her heart rate has been high stating was 130 this morning. She denies any chest pain or shortness of breath. She presented to her litigation counsel's office this a.m. for follow-up and was advised to go to the ER for further evaluation. According to ER record patient's troponin was 0.10 BNP was 572 TSH was 0 rest lab work unremarkable. EKG sinus tachycardia with right bundle branch block unchanged from previous. ER physician did speak with Dr. Flores, who did not advise any anticoagulation at this time. Patient has been admitted for further workup and evaluation. Presently patient denies any chest pain or shortness of breath. She does complain of tremors and's 2 she is sinus tachycardia on the monitor she is hemodynamically stable.I reviewed this case with DR Hilton who agrees with plan Past Med Surg Social Fam HX - Past Medical History Medical history: GERD, hypertension, myocardial infarction Psychiatric history: anxiety - Past Surgical History Surgical History: appendectomy, hysterectomy - Social History Smoking Status: Former smoker Smokeless Tobacco Status: No Alcohol use: none Drug use: none - Family History Father Family Member Ethnicity: Non- Living Status: Hx Family Cardiac Disorders: Yes Mother Living Status: Hx Family Cancer: Yes Brother Living Status: Hx Family Cardiac Disorders: Yes Internal Medicine - H&P: Meds LORazepam [Ativan] 0.5 mg PO TID PRN 05/22/16 [History] Aspirin Enteric Coated [Aspirin EC] 81 mg PO DAILY #30 tablet. 05/24/16 [Rx] Metoprolol [Lopressor] 50 mg PO BID #60 tablet 05/24/16 [Rx] Atorvastatin [Lipitor] 20 mg PO HS 06/07/16 [History] Calcium Carbonate/Vitamin D3 [Calcium 500+D Tablet Chew] 1 tab PO DAILY [History] Clopidogrel [Plavix] 75 mg PO DAILY 06/07/16 [History] Multivitamin [One Daily Essential] 1 tab PO DAILY 06/07/16 [History] Allergies Hydromorphone [From Dilaudid] Allergy (Verified 01/12/15 10:01) See Comments morphine Allergy (Verified 01/12/15 10:01) See Comments Penicillins Allergy (Verified 01/12/15 10:01) See Comments All Systems PM: A 10-system review of systems was performed and is negative for pertinent findings except as documented above in the HPI. - Constitutional Constitutional: fatigue, lethargy, weakness, weight loss - EENT Eyes: no change in vision, no discharge, no pain, no photophobia - Cardiovascular Cardiovascular ROS IM: edema - Respiratory Respiratory: no cough, no dyspnea, no wheezing, no excessive phlegm production - Gastrointestinal Gastrointestinal: abdominal pain, early satiety, nausea - Genitourinary Genitourinary: no change in urinary stream, no dysuria, no flank pain, no hematuria - Neurological Neurological ROS: no confusion, no convulsions, no focal weakness, no numbness, no tingling, no tremor(s) - Constitutional Vitals: Temp Pulse Resp BP Pulse Ox 98.5 F 108 16 139/65 96 06/07/16 13:18 06/07/16 13:18 06/07/16 13:18 06/07/16 13:18 06/07/16 13:18 General appearance: Present: A&O X 3, answers questions appropriately - Head Head exam: Present: atraumatic, normocephalic - Neck Neck exam general surgery: Present: normal inspection, supple, trachea midline. Absent: lymphadenopathy - Respiratory Respiratory exam: Present: CTAB. Absent: accessory muscle use, rales, rhonchi, wheezes - Cardiovascular Cardiovascular exam: Present: RRR, +S1, +S2. Absent: diastolic murmur, gallop, rubs, systolic murmur - GI/Abdominal GI/Abdominal exam: Present: normal bowel sounds, soft, no peritoneal signs. Absent: distended, tenderness - Extremities Exam Extremities exam: Present: pedal edema, warm, radial pulses palpable and symetrical. Absent: calf tenderness, cyanotic - Neurological Exam Neurological exam: Present: CN II-XII intact, oriented X3, no focal deficits, strengths equal and symetr throughout. Absent: pronater drift, facial droop, speech deficit Additional comments: Tremors noted to extremities 4 - Skin Skin exam: Present: dry, erythema, intact Additional comments: Lower extremity is bilaterally Internal Med - H&P Results - Labs CBC & Chem 7: 06/07/16 10:00 06/07/16 10:00 - EKG Data Rate: tachycardia - EKG Data Prior EKG available for review: yes When compared to previous EKG: there is no significant change
--- NOTE | 2016-06-07 14:14 | Cardiology Consult Note ---
Date of Encounter: 06/07/16 Time of Encounter: 14:13 Assessment and Plan (1) Elevated troponin Current Visit: Yes Status: Acute Mild troponin elevation 0.10. Recent [place] 05/22/16 with peak troponin up to 0.22. She denies recurrent chest pain. Continue to trend troponin. Check limited echocardiogram to evaluate LV function.. TTE 05/23/2016: LVEF 65%. Moderate diastolic dysfunction. Mild MR. Mild-to- moderate TR. Moderate pulmonary hypertension. Continue asa, plavix, statin, and bb. C/o multiple non-cardiac symptoms. May be from hyperthyroidism. Work-up per primary team. (2) Abnormal TSH Current Visit: Yes Status: Acute TSH 0.000, T3 and T4 pending. Management per hospitalist. (3) CAD (coronary artery disease) Current Visit: Yes Status: Chronic S/p NSTEMI 05/22/16. C 05/22/2016: Left main normal. LAD proximal 50% stenosis, mid 60% stenosis. Circumflex mid 99% stenosis (IVONE placed). RCA proximal 99% stenosis (IVONE placed) . EF 60%. TTE 05/23/2016: LVEF 65%. Moderate diastolic dysfunction. Mild MR. Mild-to- moderate TR. Moderate pulmonary hypertension. Continue asa, statin, bb, and plavix. Pt concern symptoms coming from plavix. After further discussion symptoms started while she was still on brilinta. Symptoms can occur with hyperthyroidism. So no change in medication at this time. Qualifiers: Coronary Disease-Associated Artery/Lesion type: [place] artery [place] vs. transplanted heart: [place] heart Associated angina: without angina Qualified Code(s): I25.10 - Atherosclerotic heart disease of [place] coronary artery without angina pectoris (4) GERD (gastroesophageal reflux disease) Current Visit: Yes Status: Acute Recommend starting PPI d/t persistent acid reflux symptoms. Qualifiers: Esophagitis presence: esophagitis presence not specified Qualified Code(s) : K21.9 - Gastro-esophageal reflux disease without esophagitis Discussion w patient/family: The assessment and plan as outlined above was discussed with the patient and/or family members who expressed understanding and agreement. All questions were answered. Thank you for involving us in the care of your patient. Please call with any questions. History of Present Illness Consult date: 06/07/16 Requesting physician: Lizett Horvath Consult reason: elevated troponin Chief complaint: N/V, weakness, tremors, BLE discoloration. History of present illness: Ms. Mccullough is a 75 year old female s/p NSTEMI with PCI and GERD who presents with n/v, tremors, weakness, and BLE redness for the last 10-12 days. Symptoms started a couple days after her discharge. She also c/o coughing up acid at times. She was diagnosed with GERD a week before her [place] and was started on prilosec for the same symptoms. Symptoms did not improve after PCI. She denies chest pain or SOB. Her only new medication was brilinta that was later switched to plavix d/t cost. Recent cardiac testing: [facility] 05/22/2016: Left main normal. LAD proximal 50% stenosis, mid 60% stenosis. Circumflex mid 99% stenosis (IVONE placed). RCA proximal 99% stenosis (IVONE placed) . EF 60%. TTE 05/23/2016: LVEF 65%. Moderate diastolic dysfunction. Mild MR. Mild-to- moderate TR. Moderate pulmonary hypertension. Past Med Surg Social Fam HX - Past Medical History Medical history: coronary artery disease, GERD, hypertension, myocardial infarction Psychiatric history: anxiety - Past Surgical History Surgical History: appendectomy, hysterectomy - Social History Smoking Status: Former smoker Smokeless Tobacco Status: No Alcohol use: none Drug use: none - Family History Father Family Member Ethnicity: Non- Living Status: Hx Family Cardiac Disorders: Yes Mother Living Status: Hx Family Cancer: Yes Brother Living Status: Age at : 72 Cause of : [place] Hx Family Cardiac Disorders: Yes Hx Family Respiratory Disorders: No Hx Family Medical Disorders: Yes Medications and Allergies LORazepam [Ativan] 0.5 mg PO TID PRN 05/22/16 [History] Aspirin Enteric Coated [Aspirin EC] 81 mg PO DAILY #30 tablet. 05/24/16 [Rx] Metoprolol [Lopressor] 50 mg PO BID #60 tablet 05/24/16 [Rx] Atorvastatin [Lipitor] 20 mg PO HS 06/07/16 [History] Calcium Carbonate/Vitamin D3 [Calcium 500+D Tablet Chew] 1 tab PO DAILY [History] Clopidogrel [Plavix] 75 mg PO DAILY 06/07/16 [History] Multivitamin [One Daily Essential] 1 tab PO DAILY 06/07/16 [History] Allergies Hydromorphone [From Dilaudid] Allergy (Verified 01/12/15 10:01) See Comments morphine Allergy (Verified 01/12/15 10:01) See Comments Penicillins Allergy (Verified 01/12/15 10:01) See Comments All Systems Review: A 10-system review of systems was performed and is negative for pertinent findings except as documented above in the HPI. Physical Examination Vital Signs, Last 4 Hours Temp Pulse Resp BP Pulse Ox 06/07/16 13:18 98.5 F 108 16 139/65 96 06/07/16 12:30 18 144/51 06/07/16 12:00 108 18 144/51 96 General: Conversant, No Apparent Distress, Other (genralized weakness and tremors noted.) HEENT: Atraumatic, Normocephaly, Mucus Membranes Moist Neck: No JVD, Normal carotid pulses Cardiac: Reg Rate and Rhythm, Normal S1 and S2, No Murmur, Other (ST on telemetry) Lungs: Normal Breath Sounds, No Wheeze, Rales, Rhonchi Neuro: Alert and responsive, No focal deficits noted Abdomen: Soft, Non-Tender Skin: Other (BLE with increased readness, trace BLE edema) Musculoskeletal: No Chest Wall Tenderness Extremities: No Clubbing, No Cyanosis, Normal Pulses Results 06/07/16 10:00 06/07/16 10:00 Chest X-Ray 06/07/16 09:38 IMPRESSION: 1. No acute cardiopulmonary disease. 2. Stable cardiomegaly. 3. COPD. D/ / 06/07/2016 10:39:52 Rac[facility]son [facility] Interpreting Provider: Racquel Hopson MD I & O 06/07/16 09:16 thru 06/07/16 13:34 Intake Total 500 Balance 500 Weight 62.5 kg Intake: IV Fluids 500 0.9 % Sodium Chloride 500 500 ML @ 1875 mls/hr IVC . Q16M ONE Rx#:[id number] Other: Stool Size Moderate - Imaging and Cardiology Echo: report reviewed Cardiac cath: report reviewed - EKG Interpretation EKG results cardiology: personally reviewed (Sr with non-specific inferior t wave changes.) Consult Discharge Plan - Plan Referrals: Logan Sommer Jr, MD [Primary Care Provider] -
[2016-06-07 14:34] LABS: Triiodothyronine (T3) Free > 30.00 pg/mL (1.71-3.71)
[2016-06-07] MEDS ORDERED: 0.9 % Sodium Chloride 1,000 ML IVC ONE (16:01)
[2016-06-07] MEDS: *HR* LORazepam 0.5 MG TABLET PO PRN (16:07)
[2016-06-07] MEDS ORDERED: POTASSIUM IODIDE PO SCH ×2 (16:15→21:45)
--- NOTE | 2016-06-07 16:55 | Event Note ---
Date of Encounter: 06/07/16 Time of Encounter: 16:51 Patient seen and examined with nurse practitioner. Briefly patient is in thyroid storm. She is tachycardic hr 110-120s sinus tachycardia, restless tremors nausea vomiting. This is a new diagnosis for her and may have probably been exacerbated by recent administration of contrast during coronary angiography. Patient will be kept NPO. She will be started on propylthiouracicl, IV steroids, SSKI, and Inderal. Continuous telemetry monitoring. She remains alert oriented times 3. She denies any chest pain. troponin elevation is likely NSTEMI type 2 due to demand ischemia. Prognosis is guarded
[2016-06-07] MEDS: Pantoprazole 40 MG VIAL IVP SCH (17:48)
[2016-06-07] MEDS: Hydrocortisone Sodium Succ 100 MG/2 ML VIAL IVP SCH ×2 (17:48→21:52)
--- NOTE | 2016-06-07 18:13 | Electrocardiograph Report ---
[address] [place], [place] [address] Test Date: 2016-06-07 Pat Name: Tory Mccullough Department: 103 Room: 2NE20 Gender: F Spot Sprayer: FLOYD : 1940 Requested By: Kaleb Gimenez Order Number: [id number] Reading MD: Jakob Sharp MD Measurements Intervals [place] Rate: 98 P: 66 [place]: 146 QRS: -25 QRSD: 93 T: 0 QT: 350 QTc: 405 Interpretive Statements SINUS RHYTHM LEFT ATRIAL ENLARGEMENT BORDERLINE LEFT AXIS DEVIATION INCOMPLETE RIGHT BUNDLE BRANCH BLOCK LEFT VENTRICULAR HYPERTROPHY ANTERIOR ISCHEMIA Electronically Signed On 06-07-2016 18:11:40 EDT by Jakob Sharp MD
[2016-06-07] MEDS: 0.9 % Sodium Chloride 1,000 ML IVC SCH (21:49)
[2016-06-07] MEDS: *HR* Heparin 5,000 UNIT/ML VIAL SQ SCH (21:53)
[2016-06-08] MEDS: *HR* Heparin 5,000 UNIT/ML VIAL SQ SCH ×3 (04:53→20:34)
[2016-06-08] MEDS: Hydrocortisone Sodium Succ 100 MG/2 ML VIAL IVP SCH ×3 (04:53→20:24)
[2016-06-08] MEDS: Levofloxacin 500 MG/100 ML 500 MG/100 ML BAG IVPB SCH (04:53)
[2016-06-08 05:01] LABS: Basophils % 0.2 %; Hematocrit 30.2 % (35.3-44.9); Hemoglobin 9.7 g/dL (11.5-15.4); Immature Granulocytes % 0.6 % (0-4); Lymphocytes # 0.6 K/mcL (0.6-4.6); Lymphocytes % 12.8 %; Mean Corpuscular HGB Conc 32.1 g/dL (31.6-35.5); Mean Corpuscular Volume 90.4 fL (83.0-100.0); Mean Platelet Volume 11.2 fL (9.4-12.4); Monocytes # 0.1 K/mcL (0.0-1.3); Monocytes % 2.6 %; Neutrophils # 4.1 K/mcL (1.6-8.9); Platelet Count 290 K/mcL (140-400); Red Blood Count 3.34 M/mcL (3.82-4.97); Red Cell Distribution Width 12.5 % (11.5-14.5); Segmented Neutrophils % 83.8 %
[2016-06-08 05:27] LABS: BUN/Creatinine Ratio 40 (6-26); Blood Urea Nitrogen 22 mg/dL (7-20); Calcium 8.9 mg/dL (8.6-10.8); Carbon Dioxide 19 mEq/L (19-29); Chloride 115 mEq/L (98-109); Glucose 154 mg/dL (70-99); Magnesium 1.6 mg/dL (1.6-2.6); Osmolality,Calculated 300 (280-300); Potassium 3.7 mEq/L (3.5-4.5); Sodium 142 mEq/L (136-145); eGFR For African Americans > 60 (> 60); eGFR For Non-African Americans > 60 (> 60)
[2016-06-08] MEDS: 0.9 % Sodium Chloride 1,000 ML IVC SCH (07:05)
[2016-06-08] MEDS: Pantoprazole 40 MG VIAL IVP SCH (08:41)
[2016-06-08] MEDS: Aspirin Enteric Coated 81 MG Tablet PO SCH (08:43)
[2016-06-08] MEDS: Multivit/Ca/Min/Fe/FA 1 TAB TABLET PO SCH (08:45)
[2016-06-08] MEDS ORDERED: Cholecalciferol (D-3) 1,000 UNIT TABLET PO SCH (09:00)
--- NOTE | 2016-06-08 11:58 | Cardiology Progress Note ---
Date of Encounter: 06/08/16 Time of Encounter: 11:55 Assessment and Plan (1) Elevated troponin Current Visit: Yes Status: Acute Troponin trending down from recent [place]. Troponin 0.10, 0.07, 0.07. Symptoms d/t thyroid storm. Metoprolol change to propranolol for better protection. EKG shows ST with no acute ST changes. No further cardiac testing warranted at this time. Discussed with Dr. Sharp, limited TTE cancelled. Cardiology will sign off. Out pt f/u will be coordinated by [facility]. (2) CAD (coronary artery disease) Current Visit: Yes Status: Chronic S/p NSTEMI 05/22/16. [facility] 05/22/2016: Left main normal. LAD proximal 50% stenosis, mid 60% stenosis. Circumflex mid 99% stenosis (IVONE placed). RCA proximal 99% stenosis (IVONE placed) . EF 60%. TTE 05/23/2016: LVEF 65%. Moderate diastolic dysfunction. Mild MR. Mild-to- moderate TR. Moderate pulmonary hypertension. Continue asa, statin, bb, and plavix. Qualifiers: Coronary Disease-Associated Artery/Lesion type: [place] artery [place] vs. transplanted heart: [place] heart Associated angina: without angina Qualified Code(s): I25.10 - Atherosclerotic heart disease of [place] coronary artery without angina pectoris Discussion w patient/family: The assessment and plan as outlined above was discussed with the patient and/or family members who expressed understanding and agreement. All questions were answered. Thank you for involving us in the care of your patient. Please call with any questions. Subjective Principal diagnosis: thyroid storm Interval history: Pt reports she is feeling somewhat better. Objective Vital Signs Temp Pulse Resp BP Pulse Ox 06/08/16 07:04 98.6 F 114 15 149/79 94 06/08/16 05:00 98.9 F 119 14 94/43 92 06/08/16 00:03 98.9 F 113 19 140/75 93 06/07/16 21:51 108 139/57 06/07/16 21:50 94 06/07/16 20:00 98.2 F 112 18 139/61 94 06/07/16 13:18 98.5 F 108 16 139/65 96 06/07/16 12:30 18 144/51 06/07/16 12:00 108 18 144/51 96 Intake and Output 06/07/16 06/08/16 06/08/16 23:59 07:59 15:59 Intake Total 1000 / 1000 Output Total 350 / 350 200 / 200 Balance -350 / -350 800 / 800 Intake: IV Fluids 1000 / 1000 0.9 % Sodium Chloride 1, 1000 / 1000 000 ML @ 100 mls/hr IVC . Q10H AREN Rx#:[id number] Oral 0 / 0 Output: Urine 350 / 350 200 / 200 Other: # Voids 1 1 Weight 97.8 kg Patient Weight 06/08/16 23:59 Weight 97.8 kg General: Conversant, No Apparent Distress HEENT: Atraumatic, Normocephaly, Mucus Membranes Moist Neck: No JVD, Normal carotid pulses Cardiac: Reg Rate and Rhythm, Normal S1 and S2, No Murmur, Other (ST on monitor. ) Lungs: Normal Breath Sounds, No Wheeze, Rales, Rhonchi Neuro: Alert and responsive, No focal deficits noted Abdomen: Soft, Non-Tender Skin: Other (BLE with increased redness, but improved. ) Musculoskeletal: No Chest Wall Tenderness Extremities: No Clubbing, No Cyanosis, No Edema, Normal Pulses Results 06/08/16 04:22 06/08/16 04:22 Lab Results 06/07/16 06/07/16 06/08/16 16:27 21:38 04:22 WBC 4.9 Hgb 9.7 L D Hct 30.2 L Plt Count 290 Sodium Potassium Chloride Carbon Dioxide BUN Creatinine Glucose Calcium Magnesium Troponin I 0.07 H* 0.07 H* 06/08/16 04:22 WBC Hgb Hct Plt Count Sodium 142 Potassium 3.7 Chloride 115 H Carbon Dioxide 19 BUN 22 H D Creatinine 0.55 L Glucose 154 H Calcium 8.9 Magnesium 1.6 Troponin I - EKG Interpretation EKG results cardiology: other (ST on telemetry with HR 100-130 ST, Avg HR 113.) Consult Discharge Plan - Plan Referrals: Logan Sommer Jr, MD [Primary Care Provider] - Julieth Parr CNP [Advanced Practice Nurse] - 06/14/16 1:30 pm
[2016-06-08] MEDS: *HR* LORazepam 0.5 MG TABLET PO PRN ×2 (12:10→22:36)
--- NOTE | 2016-06-08 13:13 | ECHO - Doppler Report ---
Limited Echocardiogram Name: Tory Mccullough Date of Study: 06/08/2016 Date: 1940 Ht: 61.0 in Medical Record#: [id number] Age: 75 Wt: 152.0 lb Gender: Female BSA: 1.68 Order #: [id number] Location: [facility] Room #: 2NE20 Reading Physician: Denton Flores DO, FACC, FASE Office Rep: Annie Mcnulty Ordering Physician: Brian Lee CNP Primary Physician: Logan Sommer MD Indications: Elevated troponin Impressions: LVEF 70%. Normal LV chamber size, wall thickness and function. Left Ventricular Wall Motion: Rest Echo Findings All wall segments showed normal motion. Findings: Study Quality * Technically adequate exam. ECG Findings * Sinus tachycardia. Left Ventricle * LVEF 70%. * Normal LV chamber size, wall thickness and function. Right Ventricle * Normal right ventricular structure and function. History Hypertension Hypercholesteremia Family History of CAD 05/23/2016 a Previous Echo was performed. Measurements: BP: 152/ 78 2D Normal Values IVSd: 1.00 cm 0.6 - 1.0 cm LVIDd: 4.80 cm 3.7 - 5.6 cm LVPWd: .90 cm 0.6 - 1.1 cm LVIDs: 3.80 cm 1.5 - 3.6 cm %FS: 20.80 cm >25 % LA volume: Updated by Denton Flores DO, FACC, FASE, FASNC on 06/08/2016 1:07:58 PM electronically signed on 06/08/2016 1:08:24 PM with status of Final Wall Motion [place]: 1=Normal, 2=Hypokinesis, 3=Akinesis, 4=Dyskinesis, 5=Aneurysmal, 6=Hyperkinetic, X=Not Visualized (Blank)=Missing
--- NOTE | 2016-06-08 14:01 | Internal Med Progress Note ---
Date of Encounter: 06/08/16 Time of Encounter: 12:00 - Assessment and plan (1) Thyrotoxicosis Current Visit: Yes Status: Acute Assessment and plan: Continue PTU, steroids, propranolol and SSKI. Continues to be tachycardic. Tremor still present. Will need endocrine evaluation. Qualifiers: Thyrotoxicosis type: with diffuse goiter Thyrotoxic crisis or storm presence: without thyrotoxic crisis or storm Qualified Code(s): E05.00 - Thyrotoxicosis with diffuse goiter without thyrotoxic crisis or storm (2) CAD (coronary artery disease) Current Visit: Yes Status: Chronic Assessment and plan: Continue home meds. S/P recent stent. Qualifiers: Coronary Disease-Associated Artery/Lesion type: [place] artery [place] vs. transplanted heart: [place] heart Associated angina: without angina Qualified Code(s): I25.10 - Atherosclerotic heart disease of [place] coronary artery without angina pectoris (3) Essential hypertension Current Visit: Yes Status: Chronic Assessment and plan: Appears controlled at this time. (4) GERD (gastroesophageal reflux disease) Current Visit: Yes Status: Chronic Assessment and plan: On PPI. Change to PO. Qualifiers: Esophagitis presence: esophagitis presence not specified Qualified Code(s) : K21.9 - Gastro-esophageal reflux disease without esophagitis (5) Anxiety Current Visit: No Status: Chronic Assessment and plan: Takes Ativan frequently at home. - Subjective Interval history: Ms. Mccullough is currently admitted for acute thyrotoxicosis. She is high risk due to potential for worsening cardiac and thyroid issues. Ms. Mccullough feels anxious at this time. She is still having some tremor. No CP or SOB. No cough. No neck or throat pain. No diarrhea. - Constitutional Vitals: Temp Pulse Resp BP Pulse Ox 98.2 F 116 15 152/78 96 06/08/16 11:55 06/08/16 11:55 06/08/16 11:55 06/08/16 11:55 06/08/16 11:55 General appearance: Present: A&O X 3, pleasant, answers questions appropriately - Head Head exam: Present: normocephalic - Eye Eye exam: Present: conjuntiva pink - ENT ENT exam: Present: mucous membranes dry - Neck Neck exam general surgery: Absent: tenderness, thyromegaly - Respiratory Respiratory exam: Present: decreased breath sounds, rales - Cardiovascular Cardiovascular exam: Present: tachycardia Additional comments: Sinus tachycardia on monitor. - GI/Abdominal GI/Abdominal exam: Present: soft. Absent: tenderness - Extremities Exam Extremities exam: Present: warm. Absent: tenderness Additional comments: Mild diffuse erythema. - Neurological Exam Neurological exam: Present: alert, oriented X3, no focal deficits Additional comments: Slight resting tremor. - Psychiatric Psychiatric exam: Present: normal affect, normal mood - Skin Skin exam: Present: erythema (Both lower extremities) Internal Medicine: Result - Labs CBC & Chem 7: 06/08/16 04:22 06/08/16 04:22 Labs: Short CBC 06/08/16 Range/Units 04:22 WBC 4.9 (4.3-11.1) K/mcL Hgb 9.7 L D (11.5-15.4) g/dL Hct 30.2 L (35.3-44.9) % Plt Count 290 (140-400) K/mcL Neutrophils # 4.1 (1.6-8.9) K/mcL BMP 06/08/16 04:22 Sodium 142 Potassium 3.7 Chloride 115 H Carbon Dioxide 19 BUN 22 H D Creatinine 0.55 L Glucose 154 H Calcium 8.9 Cardiac Enzymes 06/07/16 06/07/16 Range/Units 16:27 21:38 Troponin I 0.07 H* 0.07 H* (0-0.03) ng/mL - ABG Interpretation ABG results: PT/INR, D-dimer PT 13.5 Seconds (9.4-12.1) H 06/07/16 10:00 Consult Discharge Plan - Plan Referrals: Logan Sommer Jr, MD [Primary Care Provider] - Julieth Parr CNP [Advanced Practice Nurse] - 06/14/16 1:30 pm
[2016-06-08] MEDS ORDERED: 0.9 % Sodium Chloride 1,000 ML IVC SCH (14:05)
[2016-06-08] MEDS ORDERED: POTASSIUM IODIDE PO SCH (15:00)
[2016-06-08] MEDS: POTASSIUM IODIDE 1000 MG/ML PO SCH ×2 (16:11→20:34)
[2016-06-09] MEDS: Hydrocortisone Sodium Succ 100 MG/2 ML VIAL IVP SCH ×4 (02:52→22:03)
[2016-06-09] MEDS: Levofloxacin 500 MG/100 ML 500 MG/100 ML BAG IVPB SCH (05:47)
[2016-06-09 06:17] LABS: Hematocrit 31.9 % (35.3-44.9); Hemoglobin 10.3 g/dL (11.5-15.4); Mean Corpuscular HGB Conc 32.3 g/dL (31.6-35.5); Mean Corpuscular Hemoglobin 29.1 pg (28.0-33.3); Mean Corpuscular Volume 90.1 fL (83.0-100.0); Mean Platelet Volume 11.5 fL (9.4-12.4); Platelet Count 293 K/mcL (140-400); Red Blood Count 3.54 M/mcL (3.82-4.97); Red Cell Distribution Width 12.6 % (11.5-14.5)
[2016-06-09 06:37] LABS: BUN/Creatinine Ratio 45 (6-26); Blood Urea Nitrogen 26 mg/dL (7-20); Calcium 9.4 mg/dL (8.6-10.8); Carbon Dioxide 21 mEq/L (19-29); Chloride 114 mEq/L (98-109); Glucose 154 mg/dL (70-99); Magnesium 1.7 mg/dL (1.6-2.6); Osmolality,Calculated 306 (280-300); Potassium 3.4 mEq/L (3.5-4.5); Sodium 144 mEq/L (136-145); eGFR For African Americans > 60 (> 60); eGFR For Non-African Americans > 60 (> 60)
[2016-06-09] MEDS: Pantoprazole 40 MG VIAL IVP SCH (08:24)
[2016-06-09] MEDS: Aspirin Enteric Coated 81 MG Tablet PO SCH (08:24)
[2016-06-09] MEDS: Multivit/Ca/Min/Fe/FA 1 TAB TABLET PO SCH (08:24)
[2016-06-09] MEDS: *HR* Heparin 5,000 UNIT/ML VIAL SQ SCH ×3 (08:25→22:04)
--- NOTE | 2016-06-09 13:58 | Internal Med Progress Note ---
Date of Encounter: 06/09/16 Time of Encounter: 11:15 - Assessment and plan (1) Thyrotoxicosis Current Visit: Yes Status: Acute Assessment and plan: Continue PTU, steroids, propranolol and SSKI. Tremor better but still tachycardic (lower than yesterday). Throat pain resolved. No change for now. Qualifiers: Thyrotoxicosis type: with diffuse goiter Thyrotoxic crisis or storm presence: without thyrotoxic crisis or storm Qualified Code(s): E05.00 - Thyrotoxicosis with diffuse goiter without thyrotoxic crisis or storm (2) CAD (coronary artery disease) Current Visit: Yes Status: Chronic Assessment and plan: Continue home meds. S/P recent stent. Qualifiers: Coronary Disease-Associated Artery/Lesion type: [place] artery [place] vs. transplanted heart: [place] heart Associated angina: without angina Qualified Code(s): I25.10 - Atherosclerotic heart disease of [place] coronary artery without angina pectoris (3) Essential hypertension Current Visit: Yes Status: Chronic Assessment and plan: Appears controlled at this time. (4) GERD (gastroesophageal reflux disease) Current Visit: Yes Status: Chronic Assessment and plan: On PPI. Change to PO when able. Qualifiers: Esophagitis presence: esophagitis presence not specified Qualified Code(s) : K21.9 - Gastro-esophageal reflux disease without esophagitis (5) Hypokalemia Current Visit: Yes Status: Acute Assessment and plan: Replace today. (6) Cellulitis of leg without foot, left Current Visit: Yes Status: Suspected Assessment and plan: Changed to IV Ancef. Most likely erythema is related to edema and metabolic changes. Check venous duplex. (7) Cellulitis of leg without foot, right Current Visit: Yes Status: Suspected Assessment and plan: IV Ancef (8) Anemia Current Visit: Yes Status: Chronic Assessment and plan: Follow. Qualifiers: Anemia type: other cause Other causes of anemia: chronic disease, other Qualified Code(s): D63.8 - Anemia in other chronic diseases classified elsewhere (9) Anxiety Current Visit: No Status: Chronic Assessment and plan: Takes Ativan frequently at home. Ordered here. - Subjective Interval history: Ms. Mccullough is currently admitted for acute thyrotoxicosis. She is high risk due to potential for worsening cardiac and thyroid issues. Ms. Mccullough is less tremulous and anxious today. Heartrate still above 100. Legs still warm and swollen with some erythema though less than yesterday. No CP or SOB. No GI symptoms. Has not been up much. - Constitutional Vitals: Temp Pulse Resp BP Pulse Ox 97.6 F 106 16 154/82 94 06/09/16 11:58 06/09/16 11:58 06/09/16 11:58 06/09/16 11:58 06/09/16 06:24 General appearance: Present: A&O X 3, pleasant, answers questions appropriately - Head Head exam: Present: normocephalic - Eye Eye exam: Present: EOMI, conjuntiva pink - ENT ENT exam: Present: mucous membranes dry - Respiratory Respiratory exam: Present: decreased breath sounds, CTAB. Absent: rhonchi, wheezes - Cardiovascular Cardiovascular exam: Present: RRR, tachycardia - GI/Abdominal GI/Abdominal exam: Present: soft. Absent: tenderness - Extremities Exam Extremities exam: Present: warm Additional comments: Bilateral edema with some erythema (less than yesterday). - Neurological Exam Neurological exam: Present: alert, oriented X3, no focal deficits - Psychiatric Psychiatric exam: Present: normal affect, normal mood - Skin Skin exam: Present: dry, erythema, warm Internal Medicine: Result - Labs CBC & Chem 7: 06/09/16 05:28 06/09/16 05:28 Labs: Short CBC 06/09/16 Range/Units 05:28 WBC 8.2 D (4.3-11.1) K/mcL Hgb 10.3 L (11.5-15.4) g/dL Hct 31.9 L (35.3-44.9) % Plt Count 293 (140-400) K/mcL BMP 06/09/16 05:28 Sodium 144 Potassium 3.4 L Chloride 114 H Carbon Dioxide 21 BUN 26 H Creatinine 0.58 Glucose 154 H Calcium 9.4 - ABG Interpretation ABG results: PT/INR, D-dimer PT 13.5 Seconds (9.4-12.1) H 06/07/16 10:00 Consult Discharge Plan - Plan Referrals: Julieth Parr JOB SITE SUPERINTENDENT [Advanced Practice Nurse] - 06/14/16 1:30 pm
[2016-06-09] MEDS: POTASSIUM IODIDE 1000 MG/ML PO SCH ×3 (14:58→22:04)
[2016-06-09] MEDS: ceFAZolin 1,000 MG in D5% in Water (Mini-Bag+) 100 ML IVPB SCH ×2 (15:25→23:27)
[2016-06-09] MEDS: *HR* LORazepam 0.5 MG TABLET PO PRN (23:28)
[2016-06-10] MEDS: Hydrocortisone Sodium Succ 100 MG/2 ML VIAL IVP SCH ×3 (05:03→22:37)
[2016-06-10] MEDS: Acetaminophen 325 MG TABLET PO PRN ×3 (05:03→23:44)
[2016-06-10] MEDS: *HR* Heparin 5,000 UNIT/ML VIAL SQ SCH ×3 (05:09→22:37)
[2016-06-10 05:54] LABS: BUN/Creatinine Ratio 42 (6-26); Blood Urea Nitrogen 25 mg/dL (7-20); Calcium 9.5 mg/dL (8.6-10.8); Carbon Dioxide 21 mEq/L (19-29); Chloride 110 mEq/L (98-109); Glucose 136 mg/dL (70-99); Osmolality,Calculated 304 (280-300); Potassium 3.1 mEq/L (3.5-4.5); Sodium 144 mEq/L (136-145); eGFR For African Americans > 60 (> 60); eGFR For Non-African Americans > 60 (> 60)
[2016-06-10] MEDS: Pantoprazole 40 MG VIAL IVP SCH (09:55)
[2016-06-10] MEDS: Aspirin Enteric Coated 81 MG Tablet PO SCH (09:55)
[2016-06-10] MEDS: Multivit/Ca/Min/Fe/FA 1 TAB TABLET PO SCH (09:55)
[2016-06-10] MEDS: POTASSIUM IODIDE 1000 MG/ML PO SCH ×3 (09:55→22:37)
[2016-06-10] MEDS: ceFAZolin 1,000 MG in D5% in Water (Mini-Bag+) 100 ML IVPB SCH ×3 (09:56→22:36)
[2016-06-10] MEDS ORDERED: Furosemide 20 MG/2 ML VIAL IVP ONE (12:12)
[2016-06-10] MEDS: *HR* LORazepam 0.5 MG TABLET PO PRN ×2 (12:33→22:59)
--- NOTE | 2016-06-10 12:46 | Internal Med Progress Note ---
Date of Encounter: 06/10/16 Time of Encounter: 10:30 - Assessment and plan (1) Thyrotoxicosis Current Visit: Yes Status: Acute Assessment and plan: Will switch to Methimazole tomorrow. Check LFTs. Heartrate still greater than 100. Qualifiers: Thyrotoxicosis type: with diffuse goiter Thyrotoxic crisis or storm presence: without thyrotoxic crisis or storm Qualified Code(s): E05.00 - Thyrotoxicosis with diffuse goiter without thyrotoxic crisis or storm (2) CAD (coronary artery disease) Current Visit: Yes Status: Chronic Assessment and plan: Chest pain last night appears to be musculoskeletal. Repeat troponin x 1. Qualifiers: Coronary Disease-Associated Artery/Lesion type: [place] artery [place] vs. transplanted heart: [place] heart Associated angina: without angina Qualified Code(s): I25.10 - Atherosclerotic heart disease of [place] coronary artery without angina pectoris (3) Essential hypertension Current Visit: Yes Status: Chronic Assessment and plan: Appears controlled at this time. (4) GERD (gastroesophageal reflux disease) Current Visit: Yes Status: Chronic Assessment and plan: On PPI. Change to PO when able. Qualifiers: Esophagitis presence: esophagitis presence not specified Qualified Code(s) : K21.9 - Gastro-esophageal reflux disease without esophagitis (5) Hypokalemia Current Visit: Yes Status: Acute Assessment and plan: Continues to be low. Replace today. (6) Cellulitis of leg without foot, left Current Visit: Yes Status: Suspected Assessment and plan: On IV Ancef. Venous duplex negative for clot. Will give a dose of Lasix today. (7) Cellulitis of leg without foot, right Current Visit: Yes Status: Suspected Assessment and plan: IV Ancef (8) Anemia Current Visit: Yes Status: Chronic Assessment and plan: Follow. Qualifiers: Anemia type: other cause Other causes of anemia: chronic disease, other Qualified Code(s): D63.8 - Anemia in other chronic diseases classified elsewhere (9) Anxiety Current Visit: No Status: Chronic Assessment and plan: Takes Ativan frequently at home. Ordered here. - Subjective Interval history: Ms. Mccullough is currently admitted for acute thyrotoxicosis. She is high risk due to potential for worsening cardiac and thyroid issues. Ms. Mccullough had an episode of chest pain last night when her tele box hit her chest. EKG was OK as was CXR and ribs. Feels OK today unless she presses on it. No fever or chills. Heart rate still about 100. No GI symptoms. Throat pain better. - Constitutional Vitals: Temp Pulse Resp BP Pulse Ox 97.7 F 93 17 145/68 96 06/10/16 11:10 06/10/16 11:10 06/10/16 11:10 06/10/16 11:10 06/10/16 11:10 General appearance: Present: A&O X 3, pleasant, answers questions appropriately - Head Head exam: Present: normocephalic - Eye Eye exam: Present: EOMI, conjuntiva pink - ENT ENT exam: Present: mucous membranes moist - Neck Neck exam general surgery: Absent: tenderness, thyromegaly - Respiratory Respiratory exam: Present: decreased breath sounds, rales Additional comments: Scant rales in both bases. - Cardiovascular Cardiovascular exam: Present: RRR, tachycardia. Absent: systolic murmur - GI/Abdominal GI/Abdominal exam: Present: soft. Absent: mass, tenderness - Extremities Exam Extremities exam: Present: pedal edema, warm. Absent: tenderness - Back Exam Back exam: Present: tenderness Additional comments: Tender to palpation anterior chest on L. - Neurological Exam Neurological exam: Present: alert, oriented X3, no focal deficits - Psychiatric Psychiatric exam: Present: normal affect, normal mood - Skin Skin exam: Present: erythema, warm. Absent: rash Internal Medicine: Result - Labs CBC & Chem 7: 06/09/16 05:28 06/10/16 05:25 Labs: BMP 06/10/16 05:25 Sodium 144 Potassium 3.1 L Chloride 110 H Carbon Dioxide 21 BUN 25 H Creatinine 0.59 Glucose 136 H Calcium 9.5 Cardiac Enzymes 06/10/16 Range/Units 09:26 Troponin I 0.12 H* (0-0.03) ng/mL - ABG Interpretation ABG results: PT/INR, D-dimer PT 13.5 Seconds (9.4-12.1) H 06/07/16 10:00 - EKG Interpretation EKG Interpreted by Myself: Yes EKG shows normal: sinus rhythm, QRS complexes (RBBB. LVH. ), ST-T waves (Some T wave inversion - essentially unchanged.) Rate: tachycardia - Prior EKG Data Prior EKG available for review: yes (No significant change.) - Impressions Impressions Ribs w/Chest X-Ray 06/10/16 04:58 IMPRESSION: 1. No definite displaced rib fracture. 2. Increased bilateral effusions and underlying bibasilar opacities that may represent atelectasis or pneumonia. D/ / Moi Zavaleta MD / Moi Zavaleta MD Interpreting Provider: Moi Zavaleta MD Consult Discharge Plan - Plan Referrals: Julieth Parr BOOKING MANAGER [Advanced Practice Nurse] - 06/14/16 1:30 pm
--- NOTE | 2016-06-10 13:43 | Venous Imaging Report ---
LE Venous Duplex Patient Name:Tory Mccullough Order Number:[id number] Procedure Date:06/09/2016 Date:1940ge:75 yrs Gender:Female Location:[facility] Room #: 2NE20 Loss Prevention Associate:Allan Drummond RVT, RDCS Referring MD:Tawanda Cadena DO kiln mechanic:Logan Sommer MD Reading MD:Walker Dotson MD Primary Indications:Edema and erythema. Secondary Indications: Risk Factors Yes/No Anticoagulants Yes Impressions: Bilateral lower extremity: normal superficial and deep exam. Recommendations: After imaging the patient returned to their room. Test completed on 06/09/2016 at 2:02:00 pm. Critical findings reported to BRITTANY Leyva in person at 2:08:00 pm on 06/09/2016 by Allan Drummond RVT, RDCS. Findings Venous Duplex Results: Right: Venous imaging of the lower extremity reveals full patency and normal vessel compressibility of the right distal iliac, right common femoral, right superficial femoral, right popliteal, right posterior tibial, right great saphenous and right lesser saphenous. Doppler signals in the evaluated veins were normal. The right peroneal vein was not well visualized. Left: Venous imaging of the lower extremity reveals full patency and normal vessel compressibility of the left distal iliac, left common femoral, left superficial femoral, left popliteal, left posterior tibial, left great saphenous and left lesser saphenous. Doppler signals in the evaluated veins were normal. The left peroneal vein was not well visualized. Prior Study: No prior study available for comparison. Lower Extremity Venous Duplex Side Vein Compress Spontaneous Flow Augment Diameter (cm) Depth (cm) Right Distal Iliac Normal Yes Phasic Yes Right Common Femoral Normal Yes Phasic Yes Right Superficial Femoral Normal Yes Phasic Yes Right Popliteal Normal Yes Phasic Yes Right Posterior Tibial Normal Yes Phasic Yes Right Great Saphenous Normal Yes Phasic Yes Right Lesser Saphenous Normal Yes Phasic Yes Left Distal Iliac Normal Yes Phasic Yes Left Common Femoral Normal Yes Phasic Yes Left Superficial Femoral Normal Yes Phasic Yes Left Popliteal Normal Yes Phasic Yes Left Posterior Tibial Normal Yes Phasic Yes Left Great Saphenous Normal Yes Phasic Yes Left Lesser Saphenous Normal Yes Phasic Yes Right Peroneal Left Peroneal Updated by Walker Dotson MD on 06/10/2016 1:38:01 PM electronically signed on 06/10/2016 1:38:38 PM with status of Final
[2016-06-10] MEDS: methIMAzole 5 MG TABLET PO SCH ×2 (15:23→22:37)
[2016-06-11 04:11] LABS: Hematocrit 30.4 % (35.3-44.9); Hemoglobin 9.9 g/dL (11.5-15.4); Mean Corpuscular HGB Conc 32.6 g/dL (31.6-35.5); Mean Corpuscular Hemoglobin 29.3 pg (28.0-33.3); Mean Corpuscular Volume 89.9 fL (83.0-100.0); Mean Platelet Volume 11.6 fL (9.4-12.4); Platelet Count 255 K/mcL (140-400); Red Blood Count 3.38 M/mcL (3.82-4.97); Red Cell Distribution Width 12.6 % (11.5-14.5)
[2016-06-11 04:16] LABS: Alanine Aminotransferase 60 Units/L (0-55); Albumin 2.2 g/dL (3.5-5.0); Albumin/Globulin Ratio 0.6 (1.1-2.2); Alkaline Phosphatase 91 Units/L (38-126); Aspartate Amino Transferase 37 Units/L (5-34); BUN/Creatinine Ratio 43 (6-26); Bilirubin,Total 0.8 mg/dL (0.2-1.2); Blood Urea Nitrogen 28 mg/dL (7-20); Calcium 9.3 mg/dL (8.6-10.8); Carbon Dioxide 26 mEq/L (19-29); Chloride 107 mEq/L (98-109); Globulin 3.7 g/dL (2.4-3.5); Glucose 157 mg/dL (70-99); Osmolality,Calculated 301 (280-300); Potassium 4.1 mEq/L (3.5-4.5); Sodium 141 mEq/L (136-145); Total Protein 5.9 g/dL (6.0-8.3); eGFR For African Americans > 60 (> 60); eGFR For Non-African Americans > 60 (> 60)
[2016-06-11] MEDS: Hydrocortisone Sodium Succ 100 MG/2 ML VIAL IVP SCH ×2 (05:33→14:22)
[2016-06-11] MEDS: *HR* Heparin 5,000 UNIT/ML VIAL SQ SCH ×3 (05:33→21:26)
[2016-06-11] MEDS: methIMAzole 5 MG TABLET PO SCH ×3 (08:56→21:25)
[2016-06-11] MEDS: Aspirin Enteric Coated 81 MG Tablet PO SCH (08:56)
[2016-06-11] MEDS: Multivit/Ca/Min/Fe/FA 1 TAB TABLET PO SCH (08:56)
[2016-06-11] MEDS: POTASSIUM IODIDE 1000 MG/ML PO SCH ×3 (11:15→21:26)
[2016-06-11] MEDS: ceFAZolin 1,000 MG in D5% in Water (Mini-Bag+) 100 ML IVPB SCH ×2 (11:22→17:25)
[2016-06-11] MEDS: *HR* LORazepam 0.5 MG TABLET PO PRN ×2 (13:34→21:42)
--- NOTE | 2016-06-11 16:02 | Electrocardiograph Report ---
[place] [id number] Test Date: 2016-06-10 Pat Name: Tory Mccullough Department: 111 Room: 2NE20 Gender: F Phys Ther: [id number] : 1940 Requested By: Tawanda Cadena Order Number: [id number] Reading MD: Jakob Sharp MD Measurements Intervals [place] Rate: 103 P: 64 [place]: 149 QRS: -15 QRSD: 104 T: 22 QT: 362 QTc: 422 Interpretive Statements SINUS TACHYCARDIA LEFT ATRIAL ENLARGEMENT INCOMPLETE RIGHT BUNDLE BRANCH BLOCK LEFT VENTRICULAR HYPERTROPHY AND ST-T CHANGE Electronically Signed On 06-11-2016 16:00:42 EDT by Jakob Sharp MD
--- NOTE | 2016-06-11 18:50 | Internal Med Progress Note ---
Date of Encounter: 06/11/16 Time of Encounter: 17:00 - Assessment and plan (1) Thyrotoxicosis Current Visit: Yes Status: Acute Assessment and plan: Switched to Methimazole today. Heartrate lower today. Will decrease steroids more. Ultrasound consistent with multinodular goiter/Graves disease. Will need outpatient endocrine appt. Qualifiers: Thyrotoxicosis type: with diffuse goiter Thyrotoxic crisis or storm presence: without thyrotoxic crisis or storm Qualified Code(s): E05.00 - Thyrotoxicosis with diffuse goiter without thyrotoxic crisis or storm (2) CAD (coronary artery disease) Current Visit: Yes Status: Chronic Assessment and plan: No further chest pain. Qualifiers: Coronary Disease-Associated Artery/Lesion type: [place] artery [place] vs. transplanted heart: [place] heart Associated angina: without angina Qualified Code(s): I25.10 - Atherosclerotic heart disease of [place] coronary artery without angina pectoris (3) Essential hypertension Current Visit: Yes Status: Chronic Assessment and plan: Appears controlled at this time. (4) GERD (gastroesophageal reflux disease) Current Visit: Yes Status: Chronic Assessment and plan: On PPI. Change to PO when able. Qualifiers: Esophagitis presence: esophagitis presence not specified Qualified Code(s) : K21.9 - Gastro-esophageal reflux disease without esophagitis (5) Hypokalemia Current Visit: Yes Status: Resolved Assessment and plan: Resolved today. (6) Cellulitis of leg without foot, left Current Visit: Yes Status: Suspected Assessment and plan: On IV Ancef. Venous duplex negative for clot. Redose Lasix tonight. XIMENA wrap. (7) Cellulitis of leg without foot, right Current Visit: Yes Status: Suspected Assessment and plan: IV Ancef (8) Anemia Current Visit: Yes Status: Chronic Assessment and plan: Follow. Qualifiers: Anemia type: other cause Other causes of anemia: chronic disease, other Qualified Code(s): D63.8 - Anemia in other chronic diseases classified elsewhere (9) Anxiety Current Visit: No Status: Chronic Assessment and plan: Takes Ativan frequently at home. Ordered here. - Subjective Interval history: Ms. Mccullough is currently admitted for acute thyrotoxicosis. She is high risk due to potential for worsening cardiac and thyroid issues. Ms. Mccullough had thyroid ultrasound today. Cannot have nuclear scan due to meds. She overall is feeling better. Heartrate has slowly been decreasing. Today it is in upper 90s. No CP or SOB. No fever or chills. Throat feels better. - Constitutional Vitals: Temp Pulse Resp BP Pulse Ox 98.1 F 90 15 129/63 90 06/11/16 16:00 06/11/16 16:00 06/11/16 16:00 06/11/16 16:00 06/11/16 16:00 General appearance: Present: A&O X 3, pleasant, answers questions appropriately - Head Head exam: Present: normocephalic - Eye Eye exam: Present: conjuntiva pink - ENT ENT exam: Present: mucous membranes moist - Neck Neck exam general surgery: Absent: tenderness - Respiratory Respiratory exam: Present: CTAB. Absent: rhonchi, wheezes - Cardiovascular Cardiovascular exam: Present: RRR. Absent: tachycardia - GI/Abdominal GI/Abdominal exam: Present: soft. Absent: tenderness - Extremities Exam Extremities exam: Present: warm Additional comments: Continues with erythema and edema. - Neurological Exam Neurological exam: Present: alert, oriented X3, no focal deficits - Psychiatric Psychiatric exam: Present: normal affect, normal mood - Skin Skin exam: Present: erythema, warm. Absent: rash Internal Medicine: Result - Labs CBC & Chem 7: 06/11/16 03:35 06/11/16 03:35 Labs: Short CBC 06/11/16 Range/Units 03:35 WBC 12.3 H (4.3-11.1) K/mcL Hgb 9.9 L (11.5-15.4) g/dL Hct 30.4 L (35.3-44.9) % Plt Count 255 (140-400) K/mcL BMP 06/11/16 03:35 Sodium 141 Potassium 4.1 D Chloride 107 Carbon Dioxide 26 BUN 28 H Creatinine 0.65 Glucose 157 H Calcium 9.3 Liver Function 06/11/16 Range/Units 03:35 Total Bilirubin 0.8 (0.2-1.2) mg/dL AST 37 H (5-34) Units/L ALT 60 H (0-55) Units/L Alkaline Phosphatase 91 (38-126) Units/L Albumin 2.2 L (3.5-5.0) g/dL - ABG Interpretation ABG results: PT/INR, D-dimer PT 13.5 Seconds (9.4-12.1) H 06/07/16 10:00 - Impressions Impressions Thyroid Ultrasound 06/11/16 09:00 IMPRESSION: 1. Mild thyromegaly with heterogeneous, hypervascular parenchyma, suggesting Graves disease in the setting of thyrotoxicosis. Alternately, this could be related to early thyroiditis. 2. Two solid thyroid nodules for which recommendations are below. Nodule 1: ACR TI-RADS 4 Recommend: No further follow-up Nodule 2: ACR TI-RADS 4 Recommend: Follow-up sonography in 1, 2, 3, and 5 years RECOMMENDATIONS: ACR TI-RADS recommendations TR4 (4-6 points):FNA if >= 1.5 cm, follow-up if 1-1.4 cm in 1, 2, 3, and 5 years ACR TI-RADS recommends that no more than two nodules with the highest ACR TI-RADS total point should be biopsied and no more than four nodules should be followed. D/ / Moi Zavaleta MD / Moi Zavaleta MD Interpreting Provider: Moi Zavaleta MD Consult Discharge Plan - Plan Referrals: Julieth Parr, SILVER RECOVERY OPERATOR [Advanced Practice Nurse] - 06/14/16 1:30 pm
[2016-06-11] MEDS ORDERED: Furosemide 20 MG/2 ML VIAL IVP ONE (19:18)
[2016-06-12] MEDS: ceFAZolin 1,000 MG in D5% in Water (Mini-Bag+) 100 ML IVPB SCH ×4 (01:36→23:58)
[2016-06-12 05:56] LABS: Hematocrit 28.4 % (35.3-44.9); Hemoglobin 9.2 g/dL (11.5-15.4); Mean Corpuscular HGB Conc 32.4 g/dL (31.6-35.5); Mean Corpuscular Hemoglobin 29.2 pg (28.0-33.3); Mean Corpuscular Volume 90.2 fL (83.0-100.0); Mean Platelet Volume 11.2 fL (9.4-12.4); Platelet Count 239 K/mcL (140-400); Red Blood Count 3.15 M/mcL (3.82-4.97); Red Cell Distribution Width 12.7 % (11.5-14.5)
[2016-06-12 06:08] LABS: BUN/Creatinine Ratio 53 (6-26); Blood Urea Nitrogen 29 mg/dL (7-20); Calcium 8.9 mg/dL (8.6-10.8); Carbon Dioxide 29 mEq/L (19-29); Chloride 104 mEq/L (98-109); Glucose 89 mg/dL (70-99); Osmolality,Calculated 299 (280-300); Potassium 3.2 mEq/L (3.5-4.5); Sodium 142 mEq/L (136-145); eGFR For African Americans > 60 (> 60); eGFR For Non-African Americans > 60 (> 60)
[2016-06-12] MEDS: *HR* Heparin 5,000 UNIT/ML VIAL SQ SCH ×3 (06:29→21:26)
[2016-06-12] MEDS: Hydrocortisone Sodium Succ 100 MG/2 ML VIAL IVP SCH ×2 (08:31→21:26)
[2016-06-12] MEDS: Aspirin Enteric Coated 81 MG Tablet PO SCH (08:31)
[2016-06-12] MEDS: methIMAzole 5 MG TABLET PO SCH ×3 (08:31→21:26)
[2016-06-12] MEDS: Multivit/Ca/Min/Fe/FA 1 TAB TABLET PO SCH (08:31)
[2016-06-12] MEDS: POTASSIUM IODIDE 1000 MG/ML PO SCH ×3 (08:33→21:26)
--- NOTE | 2016-06-12 08:42 | Internal Med Progress Note ---
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 She presented to youth support worker's office for worsening fatigue, palpitation, tremors and worsening tiredness. She was sent to ER for further evaluation. Noted that patient has a abnormal thyroid function test. Her TSH was 0. Her T3/T4 was elevated. Ultrasound shows diffuse goiter. Antibody workup pending. Presently on methimazole 5 mg 3 times a day. Heart rate is within acceptable range. Noted that on a monitor there was ST depression. Potassium is 3.2. Plan: -We will replace the potassium. -We will obtain an EKG. -Physical therapy/occupational therapy evaluation. -Possible home/placement in next 1-2 days. Qualifiers: Thyrotoxicosis type: with diffuse goiter Thyrotoxic crisis or storm presence: without thyrotoxic crisis or storm Qualified Code(s): E05.00 - Thyrotoxicosis with diffuse goiter without thyrotoxic crisis or storm (2) CAD (coronary artery disease) Current Visit: Yes Status: Chronic Assessment and plan: Patient denies any chest pain. Patient is known to have a coronary artery disease. We will continue present management. Qualifiers: Coronary Disease-Associated Artery/Lesion type: [place] artery [place] vs. transplanted heart: [place] heart Associated angina: without angina Qualified Code(s): I25.10 - Atherosclerotic heart disease of [place] coronary artery without angina pectoris (3) Essential hypertension Current Visit: Yes Status: Chronic Assessment and plan: Blood pressure is within acceptable range. Plan: Will continue present medication at this time (4) DVT prophylaxis Current Visit: No Status: Acute Assessment and plan: Heparin. Medical decision making: This patient has moderate to severe risk of worsening cardiac perfusion in view of her underlying complex problems. - Subjective Interval history: Seen and examined. Chart reviewed. Patient is comfortably lying down in her bed. at bedside. Patient denies chest pain, palpitation, diplopia, sweating or abdominal pain. - Constitutional Vitals: Temp Pulse Resp BP Pulse Ox 98.3 F 89 15 125/56 96 06/12/16 07:01 06/12/16 07:01 06/12/16 07:01 06/12/16 07:01 06/12/16 07:01 General appearance: Present: A&O X 3, pleasant, answers questions appropriately - Head Head exam: Present: atraumatic, normocephalic - Eye Eye exam: Present: PERRL, conjuntiva pink, sclera anicteric Pupils: Present: PERRL - Neck Neck exam general surgery: Present: supple, trachea midline. Absent: lymphadenopathy - Respiratory Respiratory exam: Present: CTAB. Absent: accessory muscle use, rales, rhonchi, wheezes - Cardiovascular Cardiovascular exam: Present: RRR, +S1, +S2. Absent: diastolic murmur, gallop, rubs, systolic murmur - GI/Abdominal GI/Abdominal exam: Present: normal bowel sounds, soft, no peritoneal signs. Absent: distended, tenderness - Extremities Exam Extremities exam: Present: warm, radial pulses palpable and symetrical. Absent : calf tenderness, cyanotic, pedal edema - Neurological Exam Neurological exam: Present: CN II-XII intact, oriented X3, no focal deficits. Absent: pronater drift, facial droop, speech deficit - Skin Skin exam: Present: dry, intact Internal Medicine: Result - Labs CBC & Chem 7: 06/12/16 05:43 06/12/16 05:43 Labs: Short CBC 06/12/16 Range/Units 05:43 WBC 11.3 H (4.3-11.1) K/mcL Hgb 9.2 L (11.5-15.4) g/dL Hct 28.4 L (35.3-44.9) % Plt Count 239 (140-400) K/mcL BMP 06/12/16 05:43 Sodium 142 Potassium 3.2 L Chloride 104 Carbon Dioxide 29 BUN 29 H Creatinine 0.55 L Glucose 89 Calcium 8.9 - ABG Interpretation ABG results: PT/INR, D-dimer PT 13.5 Seconds (9.4-12.1) H 06/07/16 10:00 - Impressions Impressions Thyroid Ultrasound 06/11/16 09:00 IMPRESSION: 1. Mild thyromegaly with heterogeneous, hypervascular parenchyma, suggesting Graves disease in the setting of thyrotoxicosis. Alternately, this could be related to early thyroiditis. 2. Two solid thyroid nodules for which recommendations are below. Nodule 1: ACR TI-RADS 4 Recommend: No further follow-up Nodule 2: ACR TI-RADS 4 Recommend: Follow-up sonography in 1, 2, 3, and 5 years RECOMMENDATIONS: ACR TI-RADS recommendations TR4 (4-6 points):FNA if >= 1.5 cm, follow-up if 1-1.4 cm in 1, 2, 3, and 5 years ACR TI-RADS recommends that no more than two nodules with the highest ACR TI-RADS total point should be biopsied and no more than four nodules should be followed. D/ / Moi Zavaleta MD / Moi Zavaleta MD Interpreting Provider: Moi Zavaleta MD Consult Discharge Plan - Plan Referrals: Julieth Parr CNP [Advanced Practice Nurse] - 06/14/16 1:30 pm
[2016-06-12] MEDS ORDERED: Potassium Chloride Elixir 20 MEQ/15 ML UDC PO ONE (08:46)
[2016-06-12] MEDS: *HR* LORazepam 0.5 MG TABLET PO PRN ×2 (14:43→22:07)
[2016-06-13 04:38] LABS: Basophils % 0.1 %; Hematocrit 28.5 % (35.3-44.9); Hemoglobin 9.5 g/dL (11.5-15.4); Immature Granulocytes % 1.9 % (0-4); Lymphocytes # 1.7 K/mcL (0.6-4.6); Lymphocytes % 17.7 %; Mean Corpuscular HGB Conc 33.3 g/dL (31.6-35.5); Mean Corpuscular Hemoglobin 29.9 pg (28.0-33.3); Mean Corpuscular Volume 89.6 fL (83.0-100.0); Mean Platelet Volume 11.2 fL (9.4-12.4); Monocytes # 0.7 K/mcL (0.0-1.3); Monocytes % 6.8 %; Neutrophils # 7.1 K/mcL (1.6-8.9); Platelet Count 235 K/mcL (140-400); Red Blood Count 3.18 M/mcL (3.82-4.97); Red Cell Distribution Width 12.9 % (11.5-14.5); Segmented Neutrophils % 73.5 %
[2016-06-13] MEDS: *HR* Heparin 5,000 UNIT/ML VIAL SQ SCH ×3 (06:05→21:50)
[2016-06-13 07:41] LABS: Alanine Aminotransferase 50 Units/L (0-55); Albumin 2.2 g/dL (3.5-5.0); Albumin/Globulin Ratio 0.6 (1.1-2.2); Alkaline Phosphatase 88 Units/L (38-126); Aspartate Amino Transferase 39 Units/L (5-34); BUN/Creatinine Ratio 46 (6-26); Bilirubin,Total 0.5 mg/dL (0.2-1.2); Blood Urea Nitrogen 28 mg/dL (7-20); Carbon Dioxide 28 mEq/L (19-29); Chloride 106 mEq/L (98-109); Globulin 3.6 g/dL (2.4-3.5); Glucose 133 mg/dL (70-99); Osmolality,Calculated 299 (280-300); Potassium 4.2 mEq/L (3.5-4.5); Sodium 141 mEq/L (136-145); Total Protein 5.8 g/dL (6.0-8.3); eGFR For African Americans > 60 (> 60); eGFR For Non-African Americans > 60 (> 60)
[2016-06-13] MEDS: Hydrocortisone Sodium Succ 100 MG/2 ML VIAL IVP SCH (09:05)
[2016-06-13] MEDS: ceFAZolin 1,000 MG in D5% in Water (Mini-Bag+) 100 ML IVPB SCH ×2 (09:05→17:07)
[2016-06-13] MEDS: Multivit/Ca/Min/Fe/FA 1 TAB TABLET PO SCH (09:05)
[2016-06-13] MEDS: POTASSIUM IODIDE 1000 MG/ML PO SCH ×3 (09:05→21:50)
[2016-06-13] MEDS: methIMAzole 5 MG TABLET PO SCH ×3 (09:05→21:51)
[2016-06-13] MEDS: Aspirin Enteric Coated 81 MG Tablet PO SCH (09:05)
--- NOTE | 2016-06-13 10:10 | Internal Med Progress Note ---
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 She presented to foreign collection clerk's office for worsening fatigue, palpitation, tremors and worsening tiredness. She was sent to ER for further evaluation. Noted that patient has a abnormal thyroid function test. Her TSH was 0. Her T3/T4 was elevated. Ultrasound shows diffuse goiter. Antibody workup pending. Presently on methimazole 5 mg 3 times a day. Heart rate is within acceptable range. Noted that on a monitor there was ST depression. Potassium is 3.2. Plan: -We will replace the potassium. -We will obtain an EKG. -Physical therapy/occupational therapy evaluation. -Possible home/placement in next 1-2 days. 06/13/2016 Patient was able to walk today with the help of physical therapy in the hallway. Upon minimal walking she was short of breath. Patient's was along with her during this small walk. Noted that patient's potassium is within normal limits. Hemoglobin stable. Plan: Will continue present treatment. Patient requested to stay for 1 more day. Home tomorrow. Qualifiers: Thyrotoxicosis type: with diffuse goiter Thyrotoxic crisis or storm presence: without thyrotoxic crisis or storm Qualified Code(s): E05.00 - Thyrotoxicosis with diffuse goiter without thyrotoxic crisis or storm (2) CAD (coronary artery disease) Current Visit: Yes Status: Chronic Assessment and plan: Patient denies any chest pain. Patient is known to have a coronary artery disease. We will continue present management. Qualifiers: Coronary Disease-Associated Artery/Lesion type: [place] artery [place] vs. transplanted heart: [place] heart Associated angina: without angina Qualified Code(s): I25.10 - Atherosclerotic heart disease of [place] coronary artery without angina pectoris (3) Essential hypertension Current Visit: Yes Status: Chronic Assessment and plan: Blood pressure is within acceptable range. Plan: Will continue present medication at this time (4) DVT prophylaxis Current Visit: No Status: Acute Assessment and plan: Heparin. Medical decision making: This patient has moderate to severe risk of worsening cardiac perfusion in view of her underlying complex problems. - Subjective Interval history: Seen and examined. Chart reviewed. Patient is comfortably lying down in her bed. at bedside. Patient denies chest pain, palpitation, diplopia, sweating or abdominal pain. 06/13/2016 Patient seen and examined. Chart reviewed. Patient was able to walk in the hallway today with the assistance of a physical therapy. Patient's was along with her when she was walking in the hallway. Patient was short of breath on minimal walking. - Constitutional Vitals: Temp Pulse Resp BP Pulse Ox 98.4 F 87 16 140/73 93 06/13/16 06:37 06/13/16 06:37 06/13/16 06:37 06/13/16 06:37 06/13/16 06:37 General appearance: Present: A&O X 3, pleasant, answers questions appropriately - Head Head exam: Present: atraumatic, normocephalic - Eye Eye exam: Present: PERRL, conjuntiva pink, sclera anicteric Pupils: Present: PERRL - Neck Neck exam general surgery: Present: supple, trachea midline. Absent: lymphadenopathy - Respiratory Respiratory exam: Present: CTAB. Absent: accessory muscle use, rales, rhonchi, wheezes - Cardiovascular Cardiovascular exam: Present: RRR, +S1, +S2. Absent: diastolic murmur, gallop, rubs, systolic murmur - GI/Abdominal GI/Abdominal exam: Present: normal bowel sounds, soft, no peritoneal signs. Absent: distended, tenderness - Extremities Exam Extremities exam: Present: warm, radial pulses palpable and symetrical. Absent : calf tenderness, cyanotic, pedal edema - Neurological Exam Neurological exam: Present: CN II-XII intact, oriented X3, no focal deficits. Absent: pronater drift, facial droop, speech deficit - Skin Skin exam: Present: dry, intact Internal Medicine: Result - Labs CBC & Chem 7: 06/13/16 04:24 06/13/16 04:24 Labs: Short CBC 06/13/16 Range/Units 04:24 WBC 9.7 (4.3-11.1) K/mcL Hgb 9.5 L (11.5-15.4) g/dL Hct 28.5 L (35.3-44.9) % Plt Count 235 (140-400) K/mcL Neutrophils # 7.1 (1.6-8.9) K/mcL BMP 06/13/16 04:24 Sodium 141 Potassium 4.2 D Chloride 106 Carbon Dioxide 28 BUN 28 H Creatinine 0.61 Glucose 133 H Calcium 9.0 Liver Function 06/13/16 Range/Units 04:24 Total Bilirubin 0.5 (0.2-1.2) mg/dL AST 39 H (5-34) Units/L ALT 50 (0-55) Units/L Alkaline Phosphatase 88 (38-126) Units/L Albumin 2.2 L (3.5-5.0) g/dL - ABG Interpretation ABG results: PT/INR, D-dimer PT 13.5 Seconds (9.4-12.1) H 06/07/16 10:00 Consult Discharge Plan - Plan Referrals: Denton Flores DO [Partnered Physician] - 07/04/16 1:00 pm Julieth Parr CNP [Advanced Practice Nurse] - 06/14/16 1:30 pm
--- NOTE | 2016-06-13 18:11 | Electrocardiograph Report ---
[place] [id number] Test Date: 2016-06-12 Pat Name: Tory Mccullough Department: 111 Room: 2NE20 Gender: F Dye Lab Technician: [place] : 1940 Requested By: Nithin Mckinney Order Number: [id number] Reading MD: Jakob Sharp MD Measurements Intervals [place] Rate: 90 P: 58 CO: 136 QRS: -8 QRSD: 100 T: 169 QT: 357 QTc: 405 Interpretive Statements SINUS RHYTHM LEFT ATRIAL ENLARGEMENT INCOMPLETE RIGHT BUNDLE BRANCH BLOCK LEFT VENTRICULAR HYPERTROPHY AND ST-T CHANGE Electronically Signed On 06-13-2016 18:10:04 EDT by Jakob Sharp MD
[2016-06-13] MEDS: *HR* LORazepam 0.5 MG TABLET PO PRN (22:07)
[2016-06-14] MEDS: ceFAZolin 1,000 MG in D5% in Water (Mini-Bag+) 100 ML IVPB SCH ×2 (00:21→09:15)
[2016-06-14] MEDS: Hydrocortisone Sodium Succ 100 MG/2 ML VIAL IVP SCH ×2 (00:21→09:15)
[2016-06-14 05:02] LABS: Basophils % 0.3 %; Eosinophils # 0.1 K/mcL (0.0-0.6); Eosinophils % 1.1 %; Hematocrit 30.7 % (35.3-44.9); Hemoglobin 9.9 g/dL (11.5-15.4); Immature Granulocytes % 3.2 % (0-4); Lymphocytes # 1.6 K/mcL (0.6-4.6); Lymphocytes % 17.9 %; Mean Corpuscular HGB Conc 32.2 g/dL (31.6-35.5); Mean Corpuscular Hemoglobin 29.1 pg (28.0-33.3); Mean Corpuscular Volume 90.3 fL (83.0-100.0); Mean Platelet Volume 11.1 fL (9.4-12.4); Monocytes # 0.7 K/mcL (0.0-1.3); Monocytes % 7.9 %; Neutrophils # 6.4 K/mcL (1.6-8.9); Nucleated Red Blood Cells 0.3 /100 WBC (0); Platelet Count 244 K/mcL (140-400); Red Cell Distribution Width 13.2 % (11.5-14.5); Segmented Neutrophils % 69.6 %
[2016-06-14 05:16] LABS: Alanine Aminotransferase 38 Units/L (0-55); Albumin 2.2 g/dL (3.5-5.0); Albumin/Globulin Ratio 0.6 (1.1-2.2); Alkaline Phosphatase 86 Units/L (38-126); Aspartate Amino Transferase 26 Units/L (5-34); BUN/Creatinine Ratio 38 (6-26); Bilirubin,Total 0.5 mg/dL (0.2-1.2); Blood Urea Nitrogen 23 mg/dL (7-20); Carbon Dioxide 29 mEq/L (19-29); Chloride 106 mEq/L (98-109); Globulin 3.5 g/dL (2.4-3.5); Glucose 111 mg/dL (70-99); Osmolality,Calculated 300 (280-300); Sodium 143 mEq/L (136-145); Total Protein 5.7 g/dL (6.0-8.3); eGFR For African Americans > 60 (> 60); eGFR For Non-African Americans > 60 (> 60)
[2016-06-14] MEDS: *HR* Heparin 5,000 UNIT/ML VIAL SQ SCH (06:04)
[2016-06-14 07:21] LABS: Thyroglobulin Antibody 4.3 IU/mL (0.0-4.0)
[2016-06-14 07:23] VITALS: BP 149/68
[2016-06-14] MEDS: methIMAzole 5 MG TABLET PO SCH (09:15)
[2016-06-14] MEDS: POTASSIUM IODIDE 1000 MG/ML PO SCH (09:15)
[2016-06-14] MEDS: Aspirin Enteric Coated 81 MG Tablet PO SCH (09:15)
[2016-06-14] MEDS: Multivit/Ca/Min/Fe/FA 1 TAB TABLET PO SCH (09:15)
--- NOTE | 2016-06-14 09:43 | Discharge Summary ---
Date of Encounter: 06/14/16 Time of Encounter: 09:39 - Discharge Diagnosis (1) Cellulitis of leg without foot, left Priority: Primary Status: Suspected (2) Thyrotoxicosis Priority: Primary Status: Acute Qualifiers: Thyrotoxicosis type: with diffuse goiter Thyrotoxic crisis or storm presence: without thyrotoxic crisis or storm Qualified Code(s): E05.00 - Thyrotoxicosis with diffuse goiter without thyrotoxic crisis or storm (3) CAD (coronary artery disease) Priority: Secondary Status: Chronic Qualifiers: Coronary Disease-Associated Artery/Lesion type: [place] artery [place] vs. transplanted heart: [place] heart Associated angina: without angina Qualified Code(s): I25.10 - Atherosclerotic heart disease of [place] coronary artery without angina pectoris (4) Essential hypertension Priority: Secondary Status: Chronic (5) DVT prophylaxis Priority: Secondary Status: Acute - Discharge Medications Prescriptions: Methimazole [Tapazole] 5 mg PO TID #120 tablet Home Medications: LORazepam [Ativan] 0.5 mg PO TID PRN 05/22/16 [History] Aspirin Enteric Coated [Aspirin EC] 81 mg PO DAILY #30 tablet. 05/24/16 [Rx] Metoprolol [Lopressor] 50 mg PO BID #60 tablet 05/24/16 [Rx] Atorvastatin [Lipitor] 20 mg PO HS 06/07/16 [History] Calcium Carbonate/Vitamin D3 [Calcium 500+D Tablet Chew] 1 tab PO DAILY [History] Clopidogrel [Plavix] 75 mg PO DAILY 06/07/16 [History] Multivitamin [One Daily Essential] 1 tab PO DAILY 06/07/16 [History] Methimazole [Tapazole] 5 mg PO TID #120 tablet 06/14/16 [Rx] Allergies/Adverse Reactions: Allergies Hydromorphone [From Dilaudid] Allergy (Verified 01/12/15 10:01) See Comments morphine Allergy (Verified 01/12/15 10:01) See Comments Penicillins Allergy (Verified 01/12/15 10:01) See Comments Procedures/tests Complete & Pending: Procedures Performed prior 72 hours Category Date Time Status thyroid ultrasound [US thyroid] [US] Routine Exams 06/11/16 09:00 Completed ECG 12 lead ECG [ECG] Routine Y 06/12/16 Completed Date of admission: 06/07/16 13:23 Primary care physician: Logan Sommer Jr, MD Consults: 06/07/16 13:29 Consult to Cardiology [CONS] Routine Comment: Consulting Provider: Andriy Baldwin Reason for Consult: elevated troponin Time Notified: 13:29 Call Completed: No 06/08/16 12:06 Consult to Occupational Therapy [CONS] Routine Comment: Evaluate, develop and implement POC Consult to Physical Therapy [CONS] Routine Comment: Evaluate, develop and implement POC 06/11/16 10:36 Consult to Truck Greaser [CONS] Routine Reason for SW Consult: needs HH Discharging clinician: Nithin Mckinney - Patient Status Disposition: Home Health Service Condition: Fair Functional capacity at discharge: uses cane/walker Overall status at discharge: patient is progressing back to baseline - Discharge Instructions Follow Up With: Denton Flores DO [Partnered Physician] - 07/04/16 1:00 pm Julieth Parr CNP [Advanced Practice Nurse] - 06/20/16 1:30 pm - Diet and Activity Activity: as per physical therapy, increase activity as tolerated Diet: low fat, low cholesterol, low salt diet Interval History: Ms. Mccullough is a 75 year old female past medical hx of GERD coronary artery disease with recent stent placement. PCI last month with IVONE to RCA and mLCX renal disease. Endocrine patient since her Last month she has been experiencing increased weakness tremors anorexia nausea, weight loss difficulty walking lower extremity swelling as well as redness. She denies palpitations over the state that her heart rate has been high stating was 130 this morning. She denies any chest pain or shortness of breath. She presented to her imagery intelligence's office this a.m. for follow-up and was advised to go to the ER for further evaluation. According to ER record patient's troponin was 0.10 BNP was 572 TSH was 0 rest lab work unremarkable. EKG sinus tachycardia with right bundle branch block unchanged from previous. ER physician did speak with Dr. Flores, who did not advise any anticoagulation at this time. Patient has been admitted for further workup and evaluation. Presently patient denies any chest pain or shortness of breath. She does complain of tremors and's 2 she is sinus tachycardia on the monitor she is hemodynamically stable Hospital course: Patient was hospitalized. Noted that patient's TSH was 0 and free T4 along with T3 was extremely high. Patient was started on steroids, beta blockers and hematocrit artery. Patient responded well. Eventually she was started on methimazole 5 mg 3 times a day.Her heart rate was controlled. Upon admission her heart rate was between 110-120/m and now is between 80 and 90/m. Noted that patient has a left lower limb cellulitis. She received altogether 5 days of intravenous Ancef. She tolerated Ancef extremely well. Her cellulitis is improving and patient is extremely happy with the improvement. Patient was seen by physical therapy/occupational therapy. Physical therapy recommended home physical therapy. And does not recommend to go to inpatient rehabilitation Plan Patient can go home today. Patient will follow up with her primary care doctor that is Dr. Sommer. I had extensive discussion with her primary care doctor regarding this admission. PCP will make a referral to endocrinology. Patient will follow up with the cardiology. Patient will follow-up with home health/home physical therapy. At the time of discharge medications, treatment plan and follow-ups discussed with the patient and family at length. All questions answered. At the time of discharge patient does not have any questions, concerns, update or recommendations. - Time Spent with Patient Total time spent providing and/or coordinating discharge services: - Constitutional Vitals: Temp Pulse Resp BP Pulse Ox 98.3 F 85 16 149/68 97 06/14/16 07:21 06/14/16 07:21 06/14/16 07:21 06/14/16 07:21 06/14/16 07:21 General appearance: Present: A&O X 3, pleasant, answers questions appropriately - Head Head exam: Present: atraumatic, normocephalic - Eye Eye exam: Present: PERRL, conjuntiva pink, sclera anicteric Pupils: Present: PERRL - Neck Neck exam general surgery: Present: supple, trachea midline. Absent: lymphadenopathy - Respiratory Respiratory exam: Present: CTAB. Absent: accessory muscle use, rales, rhonchi, wheezes - Cardiovascular Cardiovascular exam: Present: RRR, +S1, +S2. Absent: diastolic murmur, gallop, rubs, systolic murmur - GI/Abdominal GI/Abdominal exam: Present: normal bowel sounds, soft, no peritoneal signs. Absent: distended, tenderness - Extremities Exam Extremities exam: Present: warm, radial pulses palpable and symetrical. Absent : calf tenderness, cyanotic, pedal edema - Neurological Exam Neurological exam: Present: CN II-XII intact, oriented X3, no focal deficits. Absent: pronater drift, facial droop, speech deficit - Skin Skin exam: Present: dry, intact
--- NOTE | 2016-06-14 09:54 | Physician Discharge Referral ---
Home Health/Hosp Referral Info Transfer to: Home Health - Diagnosis (1) Cellulitis of leg without foot, left Priority: Primary Status: Suspected (2) Thyrotoxicosis Priority: Primary Status: Acute (3) CAD (coronary artery disease) Priority: Primary Status: Chronic (4) Essential hypertension Priority: Secondary Status: Chronic (5) DVT prophylaxis Priority: Secondary Status: Acute - Respiratory Orders Smoking Cessation: Smoking cessation has been advised. For more information, call the [place] Tobacco Quit Line at 2-760-XEXN-NOW. - Activity Activity Orders: Ambulate - Services Needed Following services are medically necessary services: Home Health Aide, Physical Therapy, Occupational Therapy - Transfer Medications Prescriptions: Methimazole [Tapazole] 5 mg PO TID #120 tablet Home Medications: LORazepam [Ativan] 0.5 mg PO TID PRN 05/22/16 [History] Aspirin Enteric Coated [Aspirin EC] 81 mg PO DAILY #30 tablet. 05/24/16 [Rx] Metoprolol [Lopressor] 50 mg PO BID #60 tablet 05/24/16 [Rx] Atorvastatin [Lipitor] 20 mg PO HS 06/07/16 [History] Calcium Carbonate/Vitamin D3 [Calcium 500+D Tablet Chew] 1 tab PO DAILY [History] Clopidogrel [Plavix] 75 mg PO DAILY 06/07/16 [History] Multivitamin [One Daily Essential] 1 tab PO DAILY 06/07/16 [History] Methimazole [Tapazole] 5 mg PO TID #120 tablet 06/14/16 [Rx] Allergies/Adverse Reactions: Allergies Hydromorphone [From Dilaudid] Allergy (Verified 01/12/15 10:01) See Comments morphine Allergy (Verified 01/12/15 10:01) See Comments Penicillins Allergy (Verified 01/12/15 10:01) See Comments Certification: Further, I certify that my clinical findings support that this patient is homebound (i.e. absences from home require considerable and taxing effort and are for medical reasons or advent services or infrequently or short duration when for other reasons) because: Homebound Reason: Patient requires assistance of a person or device to safely leave home Attestation: My signature below is to certify that this patient is under my care and that I, or nurse practitioner, or a physician's shop assistant working with me, has a face-to -face encounter with this patient.
== END 2016-06-14 11:34 | disposition home health service (06) | DRG 643 ==
LOC: EMEROO 09:16 → 2NENU 09:16 → SUATTDRO 13:23
PROVIDERS: ADMIT Nurse Practitioner Acute Care; ATTEND Internal Medicine

== ENCOUNTER 2019-08-06 06:13 | Inpatient (IN) ==
[2019-08-06] MEDS ORDERED: *HR* LORazepam 2 MG/ML VIAL IVP ONE (06:28)
[2019-08-06 06:38] LABS: Basophils % 0.9 %; Immature Granulocytes % 0.4 % (0-4); Red Cell Distribution Width 19.2 % (11.5-14.5)
[2019-08-06] MEDS ORDERED: Ondansetron 4 MG/2 ML VIAL IVP ONE ×2 (06:39→08:33)
[2019-08-06] MEDS ORDERED: Nitroglycerin 1 INCH/GM PACKET TP ONE (06:39)
[2019-08-06 06:40] LABS: Basophils # 0.1 K/mcL (0.0-0.2); Eosinophils # 0.3 K/mcL (0.0-0.6); Eosinophils % 2.8 %; Hematocrit 31.2 % (35.3-44.9); Hemoglobin 8.4 g/dL (11.5-15.4); Lymphocytes # 3.2 K/mcL (0.6-4.6); Lymphocytes % 33.6 %; Mean Corpuscular HGB Conc 26.9 g/dL (31.6-35.5); Mean Corpuscular Hemoglobin 21.7 pg (28.0-33.3); Mean Corpuscular Volume 80.6 fL (83.0-100.0); Mean Platelet Volume 10.7 fL (9.4-12.4); Monocytes # 0.7 K/mcL (0.0-1.3); Monocytes % 7.7 %; Neutrophils # 5.2 K/mcL (1.6-8.9); Nucleated Red Blood Cells 0.2 /100 WBC (0); Platelet Count 360 K/mcL (140-400); Red Blood Count 3.87 M/mcL (3.82-4.97); Segmented Neutrophils % 54.6 %; White Blood Count 9.6 K/mcL (4.3-11.1)
[2019-08-06 06:42] LABS: Prothrombin Time 11.6 Seconds (9.4-12.1)
[2019-08-06 06:45] LABS: Activated Partial Thrombo Time 26.2 Seconds (26.0-36.0)
[2019-08-06 07:16] LABS: Albumin 3.8 g/dL (3.5-5.7); Albumin/Globulin Ratio 1.1 (1.1-2.2); Bilirubin,Direct 0.2 mg/dL (0.0-0.2); Bilirubin,Indirect 0.4 mg/dL (0.0-1.0); Bilirubin,Total 0.6 mg/dL (0.3-1.0); Calcium 9.3 mg/dL (8.6-10.3); Globulin 3.6 g/dL (2.4-3.5); Magnesium 2.2 mg/dL (1.6-2.6); Thyroid Stimulating Hormone 5.466 mcIU/mL (0.340-5.600); Total Protein 7.4 g/dL (6.4-8.9); Triiodothyronine (T3) Free 3.13 pg/mL (2.50-3.90); Troponin I 0.06 ng/mL (< 0.04)
[2019-08-06] MEDS ORDERED: Isovue-370 500 ML BOTTLE IVP ONE (07:19)
[2019-08-06 07:20] LABS: Anisocytosis 1+ (Not Present); Macrocytosis Present (Not Present); Platelet Estimate Normal (Normal)
[2019-08-06] MEDS ORDERED: Furosemide 20 MG/2 ML VIAL IVP ONE ×2 (07:47→10:04)
[2019-08-06 08:41] LABS: Bilirubin,Urine Negative (Negative); Blood,Urine Small (Negative); Clarity,Urine Clear (Clear); Color,Urine Light-Yellow (Yellow); Glucose,Urine (UA) 100 mg/dL (Normal); Hyaline Casts,Urine Few per lpf (None Seen); Ketones,Urine Negative (Negative); Leukocyte Esterase,Urine Negative (Negative); Mucus,Urine Few per lpf (None-Few); Nitrite,Urine Negative (Negative); PH,Urine 5.5 pH Units (5.0-8.0); Protein,Urine 70 mg/dL (Neg-Trace); RBC,Urine 0-3 per hpf (0-3); Specific Gravity,Urine 1.016 (1.010-1.025); Squamous Epithelial Cell,Urine Few per hpf (None-Few); Urobilinogen,Urine Normal (Normal); WBC,Urine 0-3 per hpf (0-3)
[2019-08-06] MEDS ORDERED: Acetaminophen 325 MG TABLET PO PRN (10:00)
[2019-08-06] MEDS ORDERED: Naloxone 0.4 MG/ML INJ IVP PRN (10:00)
[2019-08-06 14:36] LABS: Estimated Average Glucose 160 mg/dl
[2019-08-06] MEDS ORDERED: *HR* Heparin 5,000 UNIT/ML VIAL IVP ONE (14:43)
[2019-08-06] MEDS ORDERED: *HR* Heparin 5,000 UNIT/ML VIAL IVP PRN ×2 (14:43)
[2019-08-06] MEDS ORDERED: Nitroglycerin 0.4 MG TAB.SUBL SL PRN (14:43)
[2019-08-06] MEDS ORDERED: methIMAzole 5 MG TABLET PO SCH (15:00)
[2019-08-06] MEDS: Heparin 25,000 UNIT/250 ML D5W 25,000 UNIT/250 ML IV.SOLN IVC SCH (15:16)
[2019-08-06] MEDS ORDERED: Furosemide 40 MG/4 ML VIAL IVP ONE (16:00)
[2019-08-06] MEDS: Furosemide 40 MG/4 ML VIAL IVP SCH ×2 (16:50→23:47)
[2019-08-06 17:33] LABS: INR 1.2; Prothrombin Time 13.7 Seconds (9.4-12.1)
[2019-08-06 18:01] LABS: Hematocrit 26.5 % (35.3-44.9); Hemoglobin 7.9 g/dL (11.5-15.4); Mean Corpuscular HGB Conc 29.8 g/dL (31.6-35.5); Mean Corpuscular Hemoglobin 21.8 pg (28.0-33.3); Mean Platelet Volume 10.7 fL (9.4-12.4); Platelet Count 340 K/mcL (140-400); Red Blood Count 3.63 M/mcL (3.82-4.97); Red Cell Distribution Width 18.4 % (11.5-14.5); White Blood Count 13.8 K/mcL (4.3-11.1)
[2019-08-06] MEDS ORDERED: Perflutren Lipid Microsphere 1.3 ML in 0.9 % Sodium Chloride 8.7 ML IVP ONE (20:09)
[2019-08-06] MEDS: *HR* LORazepam 0.5 MG TABLET PO PRN (20:23)
[2019-08-06] MEDS: Ondansetron 4 MG/2 ML VIAL IVP PRN (20:31)
[2019-08-06 21:03] LABS: Hematocrit 27.1 % (35.3-44.9)
[2019-08-06] MEDS ORDERED: D5% in Water 1,000 ML IVC PRN (21:43)
[2019-08-06] MEDS ORDERED: *HR* Dextrose 50 % in Water (Syg) 50 ML SYRINGE IVP PRN (21:43)
[2019-08-06] MEDS ORDERED: Dextrose Gel 15 GM/37.5 ML TUBE PO PRN ×2 (21:43)
[2019-08-06] MEDS ORDERED: Vancomycin 1,250 MG/262.5 ML IV.SOLN IVPB ONE (22:00)
[2019-08-06] MEDS: levoFLOXacin 750 MG/150 ML 750 MG/150 ML BAG IVPB SCH (22:11)
[2019-08-06] MEDS: Insulin LISPRO 300 UNITS/3 ML VIAL SQ SCH (22:37)
[2019-08-07] MEDS ORDERED: Prochlorperazine 10 MG/2 ML VIAL IVP PRN (01:14)
[2019-08-07 04:00] LABS: Basophils % 0.3 %; Hematocrit 25.6 % (35.3-44.9); Hemoglobin 7.6 g/dL (11.5-15.4); Immature Granulocytes % 0.5 % (0-4); Lymphocytes # 0.8 K/mcL (0.6-4.6); Lymphocytes % 7.4 %; Mean Corpuscular HGB Conc 29.7 g/dL (31.6-35.5); Mean Corpuscular Hemoglobin 21.8 pg (28.0-33.3); Mean Corpuscular Volume 73.4 fL (83.0-100.0); Mean Platelet Volume 10.9 fL (9.4-12.4); Monocytes # 1.2 K/mcL (0.0-1.3); Monocytes % 10.5 %; Nucleated Red Blood Cells 0.2 /100 WBC (0); Platelet Count 320 K/mcL (140-400); Red Blood Count 3.49 M/mcL (3.82-4.97); Red Cell Distribution Width 18.4 % (11.5-14.5); Segmented Neutrophils % 81.3 %; White Blood Count 11.1 K/mcL (4.3-11.1)
[2019-08-07 04:20] LABS: % Iron Saturation 3 % (15-50); Iron 14 mcg/dL (50-170); Transferrin 349 mg/dL (203-362)
[2019-08-07 04:35] LABS: BUN/Creatinine Ratio 21 (6-26); Blood Urea Nitrogen 21 mg/dL (8-23); Carbon Dioxide 29 mEq/L (23-29); Chloride 99 mEq/L (98-107); Glucose 137 mg/dL (70-105); Magnesium 1.8 mg/dL (1.6-2.6); Osmolality,Calculated 293 (280-300); Potassium 3.3 mEq/L (3.5-5.1); Sodium 139 mEq/L (136-145); eGFR For African Americans > 60 (> 60); eGFR For Non-African Americans 55 (> 60)
[2019-08-07 04:38] LABS: Ferritin 12 ng/mL (10-120)
[2019-08-07 04:45] LABS: Folate > 22.3 ng/mL (3.0-16.0); Vitamin B12 439 pg/mL (250-1100)
[2019-08-07] MEDS: Aspirin Enteric Coated 81 MG Tablet PO SCH (07:21)
[2019-08-07] MEDS: Cholecalciferol (D-3) 1,000 UNIT (25MCG) TABLET PO SCH (07:22)
[2019-08-07] MEDS: Multivit/Ca/Min/Fe/FA 1 TAB TABLET PO SCH (07:22)
[2019-08-07] MEDS: methIMAzole 5 MG TABLET PO SCH (07:34)
[2019-08-07 08:26] LABS: Hematocrit 26.9 % (35.3-44.9); Hemoglobin 7.9 g/dL (11.5-15.4)
[2019-08-07] MEDS ORDERED: NON-FORMULARY MEDICATION 1 EACH EACH (Calcium Carbonate/Vitamin D3 [Calcium 500-Vit D3 400 PO SCH (09:00)
[2019-08-07] MEDS ORDERED: Furosemide 40 MG/4 ML VIAL IVP SCH (09:00)
[2019-08-07] MEDS: Insulin LISPRO 300 UNITS/3 ML VIAL SQ SCH ×4 (09:08→21:20)
[2019-08-07] MEDS ORDERED: Iron Sucrose Complex 400 MG in 0.9 % Sodium Chloride 250 ML IVPB ONE (11:21)
[2019-08-07] MEDS ORDERED: 0.9 % Sodium Chloride 250 ML ONE (12:09)
[2019-08-07 12:26] LABS: Hematocrit 27.3 % (35.3-44.9); Hemoglobin 7.9 g/dL (11.5-15.4)
[2019-08-07] MEDS ORDERED: Furosemide 40 MG/4 ML VIAL IVP ONE ×2 (12:50→21:00)
[2019-08-07] MEDS: Potassium Chloride Elixir 20 MEQ/15 ML UDC PO SCH (13:17)
[2019-08-07] MEDS ORDERED: 0.9 % Sodium Chloride 2,000 ML ONE (13:29)
[2019-08-07] MEDS ORDERED: *HR* Heparin 10,000 UNIT/10 ML VIAL ONE (13:29)
[2019-08-07] MEDS ORDERED: Heparin 1,000 UNITS/500 mL 500 ML ONE ×2 (13:29→13:35)
[2019-08-07] MEDS ORDERED: Nitroglycerin 1,000 MCG/10 ML VIAL IV ONE (13:29)
[2019-08-07] MEDS ORDERED: ISOVUE-370 200 ML INFUS..BTL ONE ×3 (13:29→14:25)
[2019-08-07] MEDS ORDERED: *HR* Bivalirudin 250 MG VIAL IVC ONE ×2 (13:37→14:56)
[2019-08-07] MEDS ORDERED: *HR* FentaNYL (PF) 100 MCG/2 ML VIAL ONE (14:06)
[2019-08-07] MEDS ORDERED: Ondansetron 4 MG/2 ML VIAL ONE (14:06)
[2019-08-07] MEDS ORDERED: *HR* Midazolam HCl 2 MG/2 ML VIAL ONE (14:06)
[2019-08-07] MEDS ORDERED: *HR* Ticagrelor 90 MG TABLET ONE (14:50)
[2019-08-07] MEDS: carvediloL 6.25 MG TABLET PO SCH (16:04)
[2019-08-07 17:14] LABS: Hematocrit 31.8 % (35.3-44.9)
[2019-08-07 17:15] LABS: Hemoglobin 9.5 g/dL (11.5-15.4)
[2019-08-07] MEDS ORDERED: *HR* Atropine Sulfate 1 MG/10 ML SYRINGE ONE (19:57)
[2019-08-07] MEDS ORDERED: 0.9 % Sodium Chloride 1,000 ML ONE (19:57)
[2019-08-07] MEDS: Ondansetron 4 MG/2 ML VIAL IVP PRN (20:49)
[2019-08-07] MEDS ORDERED: Potassium Chloride Elixir 20 MEQ/15 ML UDC PO ONE (21:00)
[2019-08-07] MEDS ORDERED: *HR* Ticagrelor 90 MG TABLET PO SCH (21:00)
[2019-08-07] MEDS: *HR* LORazepam 0.5 MG TABLET PO PRN (22:12)
[2019-08-07 22:59] LABS: Hematocrit 28.8 % (35.3-44.9); Hemoglobin 8.7 g/dL (11.5-15.4)
[2019-08-08] MEDS ORDERED: Albumin 25% 25gram/100mL 25 GM/100 ML IV.SOLN IVPB ONE ×2 (00:18→02:39)
[2019-08-08 03:07] LABS: Basophils % 0.1 %; Hematocrit 26.1 % (35.3-44.9); Hemoglobin 7.8 g/dL (11.5-15.4); Immature Granulocytes % 0.6 % (0-4); Lymphocytes # 0.8 K/mcL (0.6-4.6); Lymphocytes % 5.4 %; Mean Corpuscular HGB Conc 29.9 g/dL (31.6-35.5); Mean Corpuscular Volume 73.7 fL (83.0-100.0); Mean Platelet Volume 10.6 fL (9.4-12.4); Monocytes % 13.8 %; Neutrophils # 11.8 K/mcL (1.6-8.9); Nucleated Red Blood Cells 0.4 /100 WBC (0); Platelet Count 283 K/mcL (140-400); Red Blood Count 3.54 M/mcL (3.82-4.97); Segmented Neutrophils % 80.1 %; White Blood Count 14.8 K/mcL (4.3-11.1)
[2019-08-08 03:24] LABS: Calcium 8.5 mg/dL (8.6-10.3); Magnesium 2.6 mg/dL (1.6-2.6); Potassium 3.6 mEq/L (3.5-5.1)
[2019-08-08 07:23] LABS: Hematocrit 24.6 % (35.3-44.9); Hemoglobin 7.4 g/dL (11.5-15.4)
[2019-08-08] MEDS: Insulin LISPRO 300 UNITS/3 ML VIAL SQ SCH ×4 (07:29→20:27)
[2019-08-08] MEDS ORDERED: 0.9 % Sodium Chloride 250 ML ONE (09:43)
[2019-08-08] MEDS: Multivit/Ca/Min/Fe/FA 1 TAB TABLET PO SCH (09:59)
[2019-08-08] MEDS: Aspirin Enteric Coated 81 MG Tablet PO SCH (09:59)
[2019-08-08] MEDS: Cholecalciferol (D-3) 1,000 UNIT (25MCG) TABLET PO SCH (09:59)
[2019-08-08] MEDS: *HR* Ticagrelor 90 MG TABLET PO SCH ×2 (09:59→20:26)
[2019-08-08] MEDS: Potassium Chloride Elixir 20 MEQ/15 ML UDC PO SCH (10:00)
[2019-08-08] MEDS: lisinopriL 5 MG TABLET PO SCH (10:02)
[2019-08-08] MEDS: carvediloL 6.25 MG TABLET PO SCH ×2 (10:15→17:30)
[2019-08-08] MEDS: methIMAzole 5 MG TABLET PO SCH (10:20)
[2019-08-08 14:40] LABS: Angiotensin Converting Enzyme 40 U/L (9-67); Serine Protease-3 Antibody 5 AU/mL (0-19)
[2019-08-08] MEDS: Spironolactone 25 MG TABLET PO SCH (15:27)
[2019-08-08 16:11] LABS: Hematocrit 29.5 % (35.3-44.9); Hemoglobin 8.9 g/dL (11.5-15.4)
[2019-08-08 19:37] LABS: Hematocrit 30.3 % (35.3-44.9); Hemoglobin 9.1 g/dL (11.5-15.4)
[2019-08-08] MEDS: levoFLOXacin 750 MG/150 ML 750 MG/150 ML BAG IVPB SCH (20:27)
[2019-08-09 03:46] LABS: Eosinophils % 0.4 %; Hematocrit 28.7 % (35.3-44.9); Hemoglobin 8.7 g/dL (11.5-15.4); Immature Granulocytes % 0.8 % (0-4); Lymphocytes % 8.9 %; Mean Corpuscular HGB Conc 30.3 g/dL (31.6-35.5); Mean Corpuscular Hemoglobin 23.3 pg (28.0-33.3); Mean Corpuscular Volume 76.9 fL (83.0-100.0); Mean Platelet Volume 11.7 fL (9.4-12.4); Monocytes % 12.5 %; Platelet Count 253 K/mcL (140-400); Red Blood Count 3.73 M/mcL (3.82-4.97); Red Cell Distribution Width 18.6 % (11.5-14.5); Segmented Neutrophils % 77.1 %; White Blood Count 11.9 K/mcL (4.3-11.1)
[2019-08-09 03:47] LABS: Basophils % 0.3 %; Eosinophils # 0.1 K/mcL (0.0-0.6); Lymphocytes # 1.1 K/mcL (0.6-4.6); Monocytes # 1.5 K/mcL (0.0-1.3); Neutrophils # 9.2 K/mcL (1.6-8.9); Nucleated Red Blood Cells 0.5 /100 WBC (0)
[2019-08-09 04:00] LABS: BUN/Creatinine Ratio 32 (6-26); Blood Urea Nitrogen 33 mg/dL (8-23); Calcium 8.6 mg/dL (8.6-10.3); Carbon Dioxide 28 mEq/L (23-29); Chloride 101 mEq/L (98-107); Glucose 115 mg/dL (70-105); Osmolality,Calculated 290 (280-300); Potassium 4.1 mEq/L (3.5-5.1); Sodium 136 mEq/L (136-145); eGFR For African Americans > 60 (> 60); eGFR For Non-African Americans 51 (> 60)
[2019-08-09 04:08] LABS: INR 1.3; Prothrombin Time 14.2 Seconds (9.4-12.1)
[2019-08-09] MEDS: Potassium Chloride Elixir 20 MEQ/15 ML UDC PO SCH (07:32)
[2019-08-09] MEDS: Insulin LISPRO 300 UNITS/3 ML VIAL SQ SCH ×4 (07:39→19:43)
[2019-08-09] MEDS: Cholecalciferol (D-3) 1,000 UNIT (25MCG) TABLET PO SCH (07:40)
[2019-08-09] MEDS: Aspirin Enteric Coated 81 MG Tablet PO SCH (07:40)
[2019-08-09] MEDS: *HR* Ticagrelor 90 MG TABLET PO SCH ×2 (07:41→19:57)
[2019-08-09] MEDS: Multivit/Ca/Min/Fe/FA 1 TAB TABLET PO SCH (07:41)
[2019-08-09] MEDS: lisinopriL 5 MG TABLET PO SCH (07:41)
[2019-08-09] MEDS: carvediloL 6.25 MG TABLET PO SCH ×2 (07:42→15:59)
[2019-08-09] MEDS: Spironolactone 25 MG TABLET PO SCH (07:42)
[2019-08-09] MEDS: Furosemide 40 MG/4 ML VIAL IVP SCH (07:43)
[2019-08-09] MEDS: methIMAzole 5 MG TABLET PO SCH (09:04)
[2019-08-09] MEDS: Heparin 25,000 UNIT/250 ML D5W 25,000 UNIT/250 ML IV.SOLN IVC SCH (14:07)
[2019-08-10 05:19] LABS: Basophils % 0.4 %; Eosinophils # 0.1 K/mcL (0.0-0.6); Eosinophils % 1.1 %; Hematocrit 32.5 % (35.3-44.9); Hemoglobin 9.7 g/dL (11.5-15.4); Immature Granulocytes % 0.8 % (0-4); Lymphocytes # 0.9 K/mcL (0.6-4.6); Lymphocytes % 7.9 %; Mean Corpuscular HGB Conc 29.8 g/dL (31.6-35.5); Mean Corpuscular Volume 77.2 fL (83.0-100.0); Mean Platelet Volume 10.8 fL (9.4-12.4); Monocytes # 1.5 K/mcL (0.0-1.3); Monocytes % 13.7 %; Neutrophils # 8.3 K/mcL (1.6-8.9); Nucleated Red Blood Cells 0.2 /100 WBC (0); Platelet Count 289 K/mcL (140-400); Red Blood Count 4.21 M/mcL (3.82-4.97); Red Cell Distribution Width 19.7 % (11.5-14.5); Segmented Neutrophils % 76.1 %; White Blood Count 10.9 K/mcL (4.3-11.1)
[2019-08-10 05:37] LABS: BUN/Creatinine Ratio 30 (6-26); Blood Urea Nitrogen 27 mg/dL (8-23); Calcium 8.9 mg/dL (8.6-10.3); Carbon Dioxide 25 mEq/L (23-29); Chloride 100 mEq/L (98-107); Glucose 118 mg/dL (70-105); Osmolality,Calculated 284 (280-300); Potassium 3.8 mEq/L (3.5-5.1); Sodium 134 mEq/L (136-145); eGFR For African Americans > 60 (> 60); eGFR For Non-African Americans 60 (> 60)
[2019-08-10] MEDS: Insulin LISPRO 300 UNITS/3 ML VIAL SQ SCH ×4 (07:35→21:20)
[2019-08-10] MEDS ORDERED: ISOVUE-370 200 ML INFUS..BTL ONE (07:53)
[2019-08-10] MEDS ORDERED: Nitroglycerin 1,000 MCG/10 ML VIAL IV ONE (07:53)
[2019-08-10] MEDS ORDERED: Heparin 1,000 UNITS/500 mL 500 ML ONE (07:53)
[2019-08-10] MEDS ORDERED: *HR* Heparin 10,000 UNIT/10 ML VIAL ONE (07:53)
[2019-08-10] MEDS ORDERED: 0.9 % Sodium Chloride 2,000 ML ONE (07:53)
[2019-08-10] MEDS: Furosemide 40 MG/4 ML VIAL IVP SCH (07:57)
[2019-08-10] MEDS: Cholecalciferol (D-3) 1,000 UNIT (25MCG) TABLET PO SCH (07:58)
[2019-08-10] MEDS: Aspirin Enteric Coated 81 MG Tablet PO SCH (07:58)
[2019-08-10] MEDS: Multivit/Ca/Min/Fe/FA 1 TAB TABLET PO SCH (07:58)
[2019-08-10] MEDS: methIMAzole 5 MG TABLET PO SCH (07:59)
[2019-08-10] MEDS: carvediloL 6.25 MG TABLET PO SCH ×2 (07:59→17:51)
[2019-08-10] MEDS: *HR* Ticagrelor 90 MG TABLET PO SCH ×2 (07:59→20:25)
[2019-08-10] MEDS: Spironolactone 25 MG TABLET PO SCH (08:00)
[2019-08-10] MEDS: lisinopriL 5 MG TABLET PO SCH (08:00)
[2019-08-10] MEDS ORDERED: *HR* Midazolam HCl 2 MG/2 ML VIAL ONE (08:01)
[2019-08-10 19:20] LABS: Hematocrit 31.8 % (35.3-44.9); Hemoglobin 9.4 g/dL (11.5-15.4)
[2019-08-10] MEDS: levoFLOXacin 750 MG/150 ML 750 MG/150 ML BAG IVPB SCH (20:25)
[2019-08-11 03:09] LABS: BUN/Creatinine Ratio 27 (6-26); Blood Urea Nitrogen 22 mg/dL (8-23); Calcium 8.2 mg/dL (8.6-10.3); Carbon Dioxide 23 mEq/L (23-29); Chloride 102 mEq/L (98-107); Glucose 100 mg/dL (70-105); Osmolality,Calculated 283 (280-300); Potassium 3.9 mEq/L (3.5-5.1); Sodium 135 mEq/L (136-145); eGFR For African Americans > 60 (> 60); eGFR For Non-African Americans > 60 (> 60)
[2019-08-11 03:14] LABS: Basophils % 0.4 %; Eosinophils # 0.2 K/mcL (0.0-0.6); Hematocrit 30.5 % (35.3-44.9); Hemoglobin 9.5 g/dL (11.5-15.4); Immature Granulocytes % 1.1 % (0-4); Lymphocytes # 1.1 K/mcL (0.6-4.6); Lymphocytes % 10.5 %; Mean Corpuscular HGB Conc 31.1 g/dL (31.6-35.5); Mean Corpuscular Hemoglobin 23.9 pg (28.0-33.3); Mean Corpuscular Volume 76.6 fL (83.0-100.0); Mean Platelet Volume 11.2 fL (9.4-12.4); Monocytes # 1.8 K/mcL (0.0-1.3); Monocytes % 17.2 %; Neutrophils # 7.1 K/mcL (1.6-8.9); Platelet Count 265 K/mcL (140-400); Red Blood Count 3.98 M/mcL (3.82-4.97); Red Cell Distribution Width 20.4 % (11.5-14.5); Segmented Neutrophils % 68.8 %; White Blood Count 10.3 K/mcL (4.3-11.1)
[2019-08-11 07:18] LABS: Hematocrit 31.8 % (35.3-44.9); Hemoglobin 9.5 g/dL (11.5-15.4)
[2019-08-11] MEDS: Multivit/Ca/Min/Fe/FA 1 TAB TABLET PO SCH (07:50)
[2019-08-11] MEDS: Aspirin Enteric Coated 81 MG Tablet PO SCH (07:50)
[2019-08-11] MEDS: Spironolactone 25 MG TABLET PO SCH (07:51)
[2019-08-11] MEDS: *HR* Ticagrelor 90 MG TABLET PO SCH ×2 (07:51→20:18)
[2019-08-11] MEDS: carvediloL 6.25 MG TABLET PO SCH ×2 (07:51→17:15)
[2019-08-11] MEDS: lisinopriL 5 MG TABLET PO SCH (07:51)
[2019-08-11] MEDS: Insulin LISPRO 300 UNITS/3 ML VIAL SQ SCH ×3 (07:56→17:16)
[2019-08-11] MEDS: Cholecalciferol (D-3) 1,000 UNIT (25MCG) TABLET PO SCH (07:56)
[2019-08-11] MEDS: methIMAzole 5 MG TABLET PO SCH (08:49)
[2019-08-11] MEDS ORDERED: D5% in Water 1,000 ML IVC PRN (11:35)
[2019-08-11] MEDS ORDERED: *HR* LORazepam 0.5 MG TABLET PO PRN (11:35)
[2019-08-11] MEDS ORDERED: Acetaminophen 325 MG TABLET PO PRN (11:35)
[2019-08-11] MEDS ORDERED: Nitroglycerin 0.4 MG TAB.SUBL SL PRN (11:35)
[2019-08-11] MEDS ORDERED: Naloxone 0.4 MG/ML INJ IVP PRN (11:35)
[2019-08-11] MEDS ORDERED: Ondansetron 4 MG/2 ML VIAL IVP PRN (11:35)
[2019-08-11] MEDS ORDERED: Prochlorperazine 10 MG/2 ML VIAL IVP PRN (11:35)
[2019-08-11] MEDS ORDERED: Dextrose Gel 15 GM/37.5 ML TUBE PO PRN ×2 (11:35)
[2019-08-11] MEDS ORDERED: *HR* Dextrose 50 % in Water (Vial) 50 ML VIAL IVP PRN (11:35)
[2019-08-11] MEDS ORDERED: polyethylene glycoL 3350 17 GM POWD.PACK PO PRN (14:33)
[2019-08-11] MEDS: Sennosides/Docusate Sodium TABLET PO SCH ×2 (15:08→20:17)
[2019-08-11] MEDS ORDERED: Insulin LISPRO 300 UNITS/3 ML VIAL SQ SCH (21:00)
[2019-08-12 07:28] VITALS: BP 125/73
[2019-08-12] MEDS: Insulin LISPRO 300 UNITS/3 ML VIAL SQ SCH (08:01)
[2019-08-12] MEDS: *HR* Ticagrelor 90 MG TABLET PO SCH (08:13)
[2019-08-12] MEDS: Sennosides/Docusate Sodium TABLET PO SCH (08:14)
[2019-08-12] MEDS: carvediloL 6.25 MG TABLET PO SCH (08:15)
[2019-08-12] MEDS ORDERED: Spironolactone 25 MG TABLET PO SCH (09:00)
[2019-08-12] MEDS ORDERED: Multivit/Ca/Min/Fe/FA 1 TAB TABLET PO SCH (09:00)
[2019-08-12] MEDS ORDERED: lisinopriL 5 MG TABLET PO SCH (09:00)
[2019-08-12] MEDS ORDERED: Cholecalciferol (D-3) 1,000 UNIT (25MCG) TABLET PO SCH (09:00)
[2019-08-12] MEDS ORDERED: methIMAzole 5 MG TABLET PO SCH (09:00)
[2019-08-12] MEDS ORDERED: Aspirin Enteric Coated 81 MG Tablet PO SCH (09:00)
[2019-08-12 09:29] LABS: Basophils % 0.4 %; Eosinophils # 0.2 K/mcL (0.0-0.6); Eosinophils % 2.2 %; Hematocrit 32.8 % (35.3-44.9); Hemoglobin 9.6 g/dL (11.5-15.4); Immature Granulocytes % 0.9 % (0-4); Lymphocytes # 0.6 K/mcL (0.6-4.6); Lymphocytes % 5.1 %; Mean Corpuscular HGB Conc 29.3 g/dL (31.6-35.5); Mean Corpuscular Hemoglobin 22.7 pg (28.0-33.3); Mean Corpuscular Volume 77.7 fL (83.0-100.0); Mean Platelet Volume 10.4 fL (9.4-12.4); Monocytes # 1.2 K/mcL (0.0-1.3); Monocytes % 10.9 %; Platelet Count 320 K/mcL (140-400); Red Blood Count 4.22 M/mcL (3.82-4.97); Red Cell Distribution Width 20.9 % (11.5-14.5); Segmented Neutrophils % 80.5 %; White Blood Count 11.1 K/mcL (4.3-11.1)
[2019-08-12 09:41] LABS: BUN/Creatinine Ratio 23 (6-26); Blood Urea Nitrogen 19 mg/dL (8-23); Calcium 8.9 mg/dL (8.6-10.3); Carbon Dioxide 23 mEq/L (23-29); Chloride 100 mEq/L (98-107); Glucose 164 mg/dL (70-105); Osmolality,Calculated 282 (280-300); Potassium 3.5 mEq/L (3.5-5.1); Sodium 133 mEq/L (136-145); eGFR For African Americans > 60 (> 60); eGFR For Non-African Americans > 60 (> 60)
[2019-08-15] MEDS ORDERED: methIMAzole 5 MG TABLET PO SCH (09:00)
== END 2019-08-12 12:40 | disposition home health service (06) | DRG 246 ==
LOC: SUATTDRO → 2ANU 06:13 → EMEROOARM 06:13 → 2ANU 12:04 → SUATTDRO 13:46 → 2NNU 18:25 → 3BNU 08-11 11:32
PROVIDERS: ADMIT Pharmacist; ATTEND Internal Medicine

== ENCOUNTER 2020-03-07 13:02 | Observation (INO) ==
[2020-03-07 14:29] LABS: INR 1.1
[2020-03-07 14:38] LABS: Immature Granulocytes % 0.2 % (0-4)
[2020-03-07 14:40] LABS: Basophils % 0.8 %; Eosinophils # 0.1 K/mcL (0.0-0.6); Eosinophils % 2.2 %; Hematocrit 21.3 % (35.3-44.9); Lymphocytes # 1.1 K/mcL (0.6-4.6); Lymphocytes % 21.9 %; Mean Corpuscular HGB Conc 27.7 g/dL (31.6-35.5); Mean Corpuscular Hemoglobin 20.1 pg (28.0-33.3); Mean Corpuscular Volume 72.4 fL (83.0-100.0); Mean Platelet Volume 12.2 fL (9.4-12.4); Monocytes # 0.6 K/mcL (0.0-1.3); Monocytes % 12.2 %; Neutrophils # 3.2 K/mcL (1.6-8.9); Platelet Count 288 K/mcL (140-400); Red Blood Count 2.94 M/mcL (3.82-4.97); Segmented Neutrophils % 62.7 %; White Blood Count 5.1 K/mcL (4.3-11.1)
[2020-03-07 14:50] LABS: BUN/Creatinine Ratio 22 (6-26); Blood Urea Nitrogen 22 mg/dL (8-23); Calcium 9.3 mg/dL (8.6-10.3); Carbon Dioxide 21 mEq/L (23-29); Chloride 104 mEq/L (98-107); Glucose 108 mg/dL (70-105); Osmolality,Calculated 288 (280-300); Potassium 4.1 mEq/L (3.5-5.1); Sodium 137 mEq/L (136-145); Troponin I < 0.03 ng/mL (< 0.04); eGFR For African Americans > 60 (> 60); eGFR For Non-African Americans 54 (> 60)
[2020-03-07 14:56] LABS: Hemoglobin 5.9 g/dL (11.5-15.4)
[2020-03-07 15:12] LABS: Anisocytosis 1+ (Not Present); Burr Cells 1+ (Not Present); Hypochromasia Present (Not Present); Platelet Estimate Normal (Normal); Poikilocytosis 2+ (Not Present); Schistocytes 1+ (Not Present)
[2020-03-07 15:13] LABS: Sickle Cells 1+ (Not Present)
[2020-03-07] MEDS ORDERED: 0.9 % Sodium Chloride 250 ML ONE (15:30)
[2020-03-07] MEDS ORDERED: Naloxone 0.4 MG/ML INJ IVP PRN (16:03)
[2020-03-07] MEDS ORDERED: Ondansetron 4 MG/2 ML VIAL IVP PRN (16:03)
[2020-03-07 17:00] LABS: Alanine Aminotransferase 21 Units/L (7-52); Albumin 4.1 g/dL (3.5-5.7); Albumin/Globulin Ratio 1.2 (1.1-2.2); Alkaline Phosphatase 83 Units/L (34-104); Aspartate Amino Transferase 22 Units/L (13-39); Bilirubin,Direct 0.1 mg/dL (0.0-0.2); Bilirubin,Indirect 0.6 mg/dL (0.0-1.0); Bilirubin,Total 0.7 mg/dL (0.3-1.0); Globulin 3.3 g/dL (2.4-3.5); Lactate Dehydrogenase 195 Units/L (140-271); Total Protein 7.4 g/dL (6.4-8.9)
[2020-03-07] MEDS ORDERED: Furosemide 20 MG/2 ML VIAL IVP ONE ×2 (18:53→23:30)
[2020-03-07] MEDS ORDERED: 0.9 % Sodium Chloride 250 ML IVC SCH (19:00)
[2020-03-07] MEDS: *HR* LORazepam 0.5 MG TABLET PO PRN (23:20)
[2020-03-08 05:58] LABS: Basophils # 0.1 K/mcL (0.0-0.2); Basophils % 1.3 %; Eosinophils # 0.2 K/mcL (0.0-0.6); Eosinophils % 2.7 %; Hematocrit 29.8 % (35.3-44.9); Immature Granulocytes % 0.2 % (0-4); Immature Platelets 6.7 % (1.1-6.1); Lymphocytes # 0.9 K/mcL (0.6-4.6); Lymphocytes % 16.9 %; Mean Corpuscular HGB Conc 30.2 g/dL (31.6-35.5); Mean Corpuscular Hemoglobin 22.4 pg (28.0-33.3); Mean Corpuscular Volume 74.1 fL (83.0-100.0); Mean Platelet Volume 11.9 fL (9.4-12.4); Monocytes # 0.5 K/mcL (0.0-1.3); Monocytes % 8.6 %; Neutrophils # 3.9 K/mcL (1.6-8.9); Platelet Count 257 K/mcL (140-400); Red Blood Count 4.02 M/mcL (3.82-4.97); Red Cell Distribution Width 18.6 % (11.5-14.5); Segmented Neutrophils % 70.3 %; White Blood Count 5.6 K/mcL (4.3-11.1)
[2020-03-08 06:14] LABS: % Iron Saturation 3 % (15-50); BUN/Creatinine Ratio 18 (6-26); Blood Urea Nitrogen 17 mg/dL (8-23); Calcium 9.4 mg/dL (8.6-10.3); Carbon Dioxide 22 mEq/L (23-29); Chloride 108 mEq/L (98-107); Glucose 89 mg/dL (70-105); Iron 17 mcg/dL (50-170); Osmolality,Calculated 291 (280-300); Potassium 3.9 mEq/L (3.5-5.1); Sodium 140 mEq/L (136-145); Transferrin 378 mg/dL (203-362); eGFR For African Americans > 60 (> 60); eGFR For Non-African Americans 55 (> 60)
[2020-03-08 06:25] LABS: Thyroid Stimulating Hormone 0.556 mcIU/mL (0.340-5.600)
[2020-03-08 06:31] LABS: Ferritin 10 ng/mL (10-120)
[2020-03-08 06:35] LABS: Folate 17.7 ng/mL (3.0-16.0)
[2020-03-08] MEDS ORDERED: Iron Sucrose Complex 200 MG in 0.9 % Sodium Chloride 100 ML IVPB ONE (07:47)
[2020-03-08] MEDS ORDERED: Furosemide 40 MG/4 ML VIAL IVP ONE (07:48)
[2020-03-08] MEDS ORDERED: Nitroglycerin 0.4 MG TAB.SUBL SL PRN (12:21)
[2020-03-08] MEDS ORDERED: *HR* LORazepam 0.5 MG TABLET PO PRN (12:21)
[2020-03-08] MEDS ORDERED: METHIMAZOLE 2.5 MG PO SCH (13:15)
[2020-03-08] MEDS ORDERED: SODIUM CHLORIDE/NAHCO3/KCL/PEG 4,000 ML SOLN.RECON PO ONE (17:00)
[2020-03-08] MEDS: carvediloL 6.25 MG TABLET PO SCH (17:02)
[2020-03-08 18:53] LABS: Influenza A PCR Negative (Negative); Influenza B PCR Negative (Negative); Resp. Syncytial Virus PCR Negative (Negative)
[2020-03-08 19:02] LABS: SARS-CoV-2 by PCR (In House) Negative (Negative)
[2020-03-09 07:12] LABS: Mean Corpuscular HGB Conc 29.1 g/dL (31.6-35.5); Nucleated Red Blood Cells 0.6 /100 WBC (0)
[2020-03-09 07:13] LABS: Basophils # 0.1 K/mcL (0.0-0.2); Eosinophils # 0.2 K/mcL (0.0-0.6); Eosinophils % 3.8 %; Hemoglobin 10.2 g/dL (11.5-15.4); Immature Granulocytes % 0.5 % (0-4); Lymphocytes % 16.3 %; Mean Corpuscular Hemoglobin 21.5 pg (28.0-33.3); Mean Corpuscular Volume 73.7 fL (83.0-100.0); Mean Platelet Volume 11.2 fL (9.4-12.4); Monocytes # 0.8 K/mcL (0.0-1.3); Monocytes % 12.4 %; Neutrophils # 4.2 K/mcL (1.6-8.9); Platelet Count 267 K/mcL (140-400); Red Blood Count 4.75 M/mcL (3.82-4.97); Red Cell Distribution Width 19.4 % (11.5-14.5); White Blood Count 6.3 K/mcL (4.3-11.1)
[2020-03-09 08:22] LABS: Calcium 9.2 mg/dL (8.6-10.3); Magnesium 1.9 mg/dL (1.6-2.6); Potassium 3.8 mEq/L (3.5-5.1)
[2020-03-09] MEDS: lisinopriL 5 MG TABLET PO SCH (10:37)
[2020-03-09] MEDS: carvediloL 6.25 MG TABLET PO SCH ×2 (10:37→18:23)
[2020-03-09] MEDS: Spironolactone 25 MG TABLET PO SCH (10:37)
[2020-03-09] MEDS: Aspirin Enteric Coated 81 MG Tablet PO SCH (10:37)
[2020-03-09] MEDS: Multivit/Ca/Min/Fe/FA 1 TAB TABLET PO SCH (10:47)
[2020-03-09] MEDS ORDERED: *HR* Propofol 200 MG/20 ML VIAL IVP ONE (12:12)
[2020-03-09] MEDS ORDERED: Lidocaine -MPF 2% 2 ML VIAL ONE (12:12)
[2020-03-09] MEDS: *HR* LORazepam 0.5 MG TABLET PO PRN (19:59)
[2020-03-10 07:30] VITALS: BP 108/65
[2020-03-10] MEDS: Spironolactone 25 MG TABLET PO SCH (09:07)
[2020-03-10] MEDS: Aspirin Enteric Coated 81 MG Tablet PO SCH (09:07)
[2020-03-10] MEDS: Multivit/Ca/Min/Fe/FA 1 TAB TABLET PO SCH (09:07)
[2020-03-10] MEDS: carvediloL 6.25 MG TABLET PO SCH (09:07)
[2020-03-10] MEDS: lisinopriL 5 MG TABLET PO SCH (09:08)
[2020-03-10 09:20] LABS: Hemoglobin 9.6 g/dL (11.5-15.4); Mean Corpuscular Hemoglobin 22.3 pg (28.0-33.3); Mean Corpuscular Volume 74.2 fL (83.0-100.0); Mean Platelet Volume 10.6 fL (9.4-12.4); Platelet Count 303 K/mcL (140-400); Red Blood Count 4.31 M/mcL (3.82-4.97); Red Cell Distribution Width 19.8 % (11.5-14.5); White Blood Count 5.7 K/mcL (4.3-11.1)
[2020-03-12] MEDS ORDERED: methIMAzole 5 MG TABLET PO SCH (12:21)
== END 2020-03-10 10:50 | disposition home or self-care (01) ==
LOC: 3ANU 13:02 → EMEROOARM 13:02 → SUATTDRO 15:46 → 3ANU 17:19
PROVIDERS: ADMIT Pharmacist; ATTEND Pharmacist
PROC: ENDOCBX (2020-03-09 13:40)